=== PATIENT | female | born 1940 | race Caucasian/White ===

== ENCOUNTER → 2016-12-07 | Outpatient (CLI) | payer MEDICARE, OTHER ==
--- NOTE | 2016-12-07 15:13 | US ---
EXAMINATION TYPE: US kidneys/renal and bladder DATE OF EXAM: 12/07/2016 3:02 PM COMPARISON: US in PACS CLINICAL HISTORY: R31.9 Hematuria N39.0 Recurrent UTI. Gross hematuria EXAM MEASUREMENTS: Right Kidney: 12.4 x 4.1 x 4.0 cm Left Kidney: 11.9 x 5.4 x 4.9 cm FINDINGS: There is no evidence for hydronephrosis at this point in time. No nephrolithiasis is seen. No caridad s are identified. The urinary bladder is anechoic. Bilateral ureteral jets are seen. IMPRESSION: No acute process.
== END | disposition home or self-care (01) ==
LOC: RADUSWWP 14:44
PROVIDERS: ATTEND Internal Medicine
DX: R10.2 Pelvic and perineal pain (principal); R31.9 Hematuria, unspecified; N39.0 Urinary tract infection, site not specified
CPT/HCPCS: 76770

== ENCOUNTER 2016-12-08 12:13 | Emergency (ER) | payer MEDICARE ==
[2016-12-08] MEDS ORDERED: SODIUM CHLORIDE 0.9% 1,000 ML IV ONE (12:41)
--- NOTE | 2016-12-08 13:34 | ED ---
General Adult HPI - General Chief complaint: Urogenital Stated complaint: Female /bleeding Time Seen by Provider: 12/08/16 12:29 Source: patient, RN notes reviewed, old records reviewed Mode of arrival: ambulatory Limitations: no limitations - History of Present Illness Initial comments: This is a 76-year-old female to the ER today for evaluation of blood in her urine. Patient believes blood is coming from the urine and has seen her primary care for evaluation of this an outpatient basis. Patient has no specific medical history not on blood thinners, has had ultrasound her kidneys and bladder and urine testing as well. Patient denies weakness dizziness or lightheadedness. Denies symptoms being in her stool and does not think it is coming from her vagina. - Related Data Home Medications Medication Instructions Recorded Confirmed Atenolol [Atenolol] 50 mg PO HS 10/08/14 12/08/16 Atorvastatin [Lipitor] 10 mg PO HS 10/08/14 12/08/16 Lansoprazole [Prevacid] 15 mg PO HS 10/08/14 12/08/16 Olmesartan/Hydrochlorothiazide 1 tab PO HS 10/08/14 12/08/16 [Benicar Hct 20-12.5 mg Tablet] Naproxen Sodium [Aleve] 220 mg PO DAILY PRN 12/08/16 12/08/16 Allergies Allergy/AdvReac Type Severity Reaction Status Date / Time No Known Allergies Allergy Verified 12/08/16 13:00 Review of Systems ROS Statement: Those systems with pertinent positive or pertinent negative responses have been documented in the HPI. ROS Other: All systems not noted in ROS Statement are negative. Past Medical History Past Medical History: GERD/Reflux, Hyperlipidemia, Hypertension Additional Past Medical History / Comment(s): CATARACTS SHER. History of Any Multi-Drug Resistant Organisms: None Reported Past Surgical History: Breast Surgery, Cholecystectomy, Orthopedic Surgery Additional Past Surgical History / Comment(s): SHER KNEE ARTHROSCOPY. D&C, HYSTEROSCOPY. RT BREAST BX, W/ CLIP. Past Anesthesia/Blood Transfusion Reactions: No Reported Reaction Past Psychological History: No Psychological Hx Reported Smoking Status: Never smoker Past Alcohol Use History: Rare Past Drug Use History: None Reported - Past Family History Mother Family Medical History: Cancer General Exam Limitations: no limitations General appearance: alert, in no apparent distress Head exam: Present: atraumatic, normocephalic, normal inspection Eye exam: Present: normal appearance, PERRL, EOMI. Absent: scleral icterus, conjunctival injection, periorbital swelling ENT exam: Present: normal exam, mucous membranes moist Neck exam: Present: normal inspection. Absent: tenderness, meningismus, lymphadenopathy Respiratory exam: Present: normal lung sounds bilaterally. Absent: respiratory distress, wheezes, rales, rhonchi, stridor Cardiovascular Exam: Present: regular rate, normal rhythm, normal heart sounds. Absent: systolic murmur, diastolic murmur, rubs, gallop, clicks GI/Abdominal exam: Present: soft, normal bowel sounds. Absent: distended, tenderness, guarding, rebound, rigid Extremities exam: Present: normal inspection, full ROM, normal capillary refill. Absent: tenderness, pedal edema, joint swelling, calf tenderness Back exam: Present: normal inspection Neurological exam: Present: alert, oriented X3, CN II-XII intact Psychiatric exam: Present: normal affect, normal mood Skin exam: Present: warm, dry, intact, normal color. Absent: rash Course Vital Signs 12/08/16 12:24 Temperature 98.9 F Pulse Rate 69 Respiratory 16 Rate Blood Pressure 148/67 O2 Sat by Pulse 93 L Oximetry - Reevaluation(s) Reevaluation #1: 12/08/16 13:33 Ultrasound of bladder and kidneys are reviewed, normal Reevaluation #2: 12/08/16 14:14 Patient is without significant bleeding here emergency room Medical Decision Making - Medical Decision Making 76 female year for evaluation of hematuria. Patient with persistent hematuria 2 -3 days now, we'll continue follow-up with her family doctor and given urology consult regarding hematuria, ultrasound shows thickened endometrium and will prescribe Dyne referral, patient to continue increasing fluid intake, he will but is stable and normal vital signs are normal not lightheaded dizziness or week, patient can be discharged - Lab Data Result diagrams: 12/08/16 13:05 12/08/16 13:05 Lab Results 12/08/16 12/08/16 12/08/16 Range/Units 13:05 13:05 13:05 WBC 7.8 (3.8-10.6) k/uL RBC 4.40 (3.80-5.40) m/uL Hgb 14.4 (11.4-16.0) gm/dL Hct 42.9 (34.0-46.0) % MCV 97.7 (80.0-100.0) fL MCH 32.8 (25.0-35.0) pg MCHC 33.6 (31.0-37.0) g/dL RDW 14.0 (11.5-15.5) % Plt Count 189 (150-450) k/uL Neutrophils % 69 % Lymphocytes % 20 % Monocytes % 6 % Eosinophils % 2 % Basophils % 1 % Neutrophils # 5.3 (1.3-7.7) k/uL Lymphocytes # 1.6 (1.0-4.8) k/uL Monocytes # 0.5 (0-1.0) k/uL Eosinophils # 0.2 (0-0.7) k/uL Basophils # 0.1 (0-0.2) k/uL PT 10.1 (9.0-12.0) sec INR 1.0 (<1.1) APTT 22.6 (22.0-30.0) sec Sodium 143 (137-145) mmol/L Potassium 4.5 (3.5-5.1) mmol/L Chloride 102 (98-107) mmol/L Carbon Dioxide 26 (22-30) mmol/L Anion Gap 15 mmol/L BUN 23 H (7-17) mg/dL Creatinine 0.92 (0.52-1.04) mg/dL Est GFR (MDRD) Af Amer >60 (>60 ml/min/1.73 sqM) Est GFR (MDRD) Non-Af 60 (>60 ml/min/1.73 sqM) Glucose 131 H (74-99) mg/dL Calcium 10.0 (8.4-10.2) mg/dL Total Bilirubin 1.0 (0.2-1.3) mg/dL AST 35 (14-36) U/L ALT 29 (9-52) U/L Alkaline Phosphatase 86 (38-126) U/L Total Protein 7.7 (6.3-8.2) g/dL Albumin 4.7 (3.5-5.0) g/dL Urine Color Urine Appearance (Clear) Urine pH (5.0-8.0) Ur Specific [place] (1.001-1.035) Urine Protein (Negative) Urine Glucose (UA) (Negative) Urine Ketones (Negative) Urine Blood (Negative) Urine Nitrate (Negative) Urine Bilirubin (Negative) Urine Urobilinogen (<2.0) mg/dL Ur Leukocyte Esterase (Negative) Urine RBC (0-5) /hpf Urine WBC (0-5) /hpf 12/08/16 Range/Units 13:07 WBC (3.8-10.6) k/uL RBC (3.80-5.40) m/uL Hgb (11.4-16.0) gm/dL Hct (34.0-46.0) % MCV (80.0-100.0) fL MCH (25.0-35.0) pg MCHC (31.0-37.0) g/dL RDW (11.5-15.5) % Plt Count (150-450) k/uL Neutrophils % % Lymphocytes % % Monocytes % % Eosinophils % % Basophils % % Neutrophils # (1.3-7.7) k/uL Lymphocytes # (1.0-4.8) k/uL Monocytes # (0-1.0) k/uL Eosinophils # (0-0.7) k/uL Basophils # (0-0.2) k/uL PT (9.0-12.0) sec INR (<1.1) APTT (22.0-30.0) sec Sodium (137-145) mmol/L Potassium (3.5-5.1) mmol/L Chloride (98-107) mmol/L Carbon Dioxide (22-30) mmol/L Anion Gap mmol/L BUN (7-17) mg/dL Creatinine (0.52-1.04) mg/dL Est GFR (MDRD) Af Amer (>60 ml/min/1.73 sqM) Est GFR (MDRD) Non-Af (>60 ml/min/1.73 sqM) Glucose (74-99) mg/dL Calcium (8.4-10.2) mg/dL Total Bilirubin (0.2-1.3) mg/dL AST (14-36) U/L ALT (9-52) U/L Alkaline Phosphatase (38-126) U/L Total Protein (6.3-8.2) g/dL Albumin (3.5-5.0) g/dL Urine Color Red Urine Appearance Cloudy H (Clear) Urine pH 5.0 (5.0-8.0) Ur Specific [place] 1.015 (1.001-1.035) Urine Protein 1+ H (Negative) Urine Glucose (UA) Negative (Negative) Urine Ketones Negative (Negative) Urine Blood Large H (Negative) Urine Nitrate Negative (Negative) Urine Bilirubin Negative (Negative) Urine Urobilinogen <2.0 (<2.0) mg/dL Ur Leukocyte Esterase Moderate H (Negative) Urine RBC >182 H (0-5) /hpf Urine WBC 57 H (0-5) /hpf - Radiology Data Radiology results: report reviewed (US bladder positive for thickened endometrium), image reviewed Disposition Clinical Impression: Hematuria Disposition: HOME SELF-CARE Instructions: Hematuria (ED) Referrals: Cristino Craig MD [Primary Care Provider] - 1-2 days Valdemar Schultz MD [STAFF PHYSICIAN] - 1-2 days Zenaida Meehan DO [Doctor of Osteopathic Medicine] - 1-2 days
[2016-12-08 13:48] LABS: Basophils # (A) 0.1 k/uL (0-0.2); Basophils % (A) 1 %; CH 32.7; CHCM 33.6; Eosinophils # (A) 0.2 k/uL (0-0.7); Eosinophils % (A) 2 %; HCT 42.9 % (34.0-46.0); HDW 2.75; HGB 14.4 gm/dL (11.4-16.0); Luc # (Auto) 0.16; Luc % (Auto) 2; Lymphocytes # (A) 1.6 k/uL (1.0-4.8); Lymphocytes % (A) 20 %; MCH 32.8 pg (25.0-35.0); MCHC 33.6 g/dL (31.0-37.0); MCV 97.7 fL (80.0-100.0); Mean Platelet Volume 8.8; Monocytes # (A) 0.5 k/uL (0-1.0); Monocytes % (A) 6 %; Neutrophils # (A) 5.3 k/uL (1.3-7.7); Neutrophils % (A) 69 %; WBC 7.8 k/uL (3.8-10.6); WBC (Perox) 7.54
[2016-12-08 13:57] LABS: ALT 29 U/L (9-52); AST 35 U/L (14-36); Alkaline Phosphatase 86 U/L (38-126); Anion Gap 15 mmol/L; Blood Urea Nitrogen 23 mg/dL (7-17); Carbon Dioxide 26 mmol/L (22-30); Chloride 102 mmol/L (98-107); Glucose 131 mg/dL (74-99); Non-African American GFR(MDRD) 60 (>60 ml/min/1.73 sqM); Potassium 4.5 mmol/L (3.5-5.1); Sodium 143 mmol/L (137-145); Total Protein 7.7 g/dL (6.3-8.2)
--- NOTE | 2016-12-08 13:59 | US ---
EXAMINATION TYPE: US transvaginal DATE OF EXAM: 12/08/2016 1:41 PM COMPARISON: NONE CLINICAL HISTORY: Pain. TECHNIQUE: Transvagingal Date of LMP: Post menopausal EXAM MEASUREMENTS: Uterus: 9.4 x 5.5 x 5.5 cm cm Endometrial Stripe: 2.4 cm Right Ovary: Not identified cm Left Ovary: Not identified cm TECHNOLOGIST IMPRESSION: wnl 1. Uterus: Bulky, heterogeneous texture. 2. Endometrium: Thickened 3. Right Ovary: Not seen 4. Left Ovary: Not seen 5. Bilateral Adnexa: wnl 6. Posterior cul-de-sac: wnl IMPRESSION: Abnormally thickened endometrium recommend SIZE ROLLER OPERATOR consult
[2016-12-08 14:00] LABS: Partial Thromboplastin Time 22.6 sec (22.0-30.0); Prothrombin Time 10.1 sec (9.0-12.0)
[2016-12-08 14:04] LABS: Appearance,Urine Cloudy (Clear); Bilirubin,Urine Negative (Negative); Glucose,Urine (UA) Negative (Negative); Ketones,Urine Negative (Negative); Leukocyte Esterase,Urine Moderate (Negative); Nitrite,Urine Negative (Negative); Particle Count 12045; Protein,Urine 1+ (Negative); RBC,Urine >182 /hpf (0-5); Specific Gravity,Urine 1.015 (1.001-1.035); UA Billing (MACRO vs. MICRO) MICRO; Urobilinogen,Urine <2.0 mg/dL (<2.0); WBC,Urine 57 /hpf (0-5)
[2016-12-08 14:33] VITALS: BP 166/75; PULSE 94; RESP 18; TEMP 98.2
== END 2016-12-08 14:33 | disposition home or self-care (01) ==
LOC: EC 12:13
DX: R31.9 Hematuria, unspecified (principal); R93.8 Abnormal findings on diagnostic imaging of other specified body structures; I10 Essential (primary) hypertension; E78.5 Hyperlipidemia, unspecified; K21.9 Gastro-esophageal reflux disease without esophagitis; H26.9 Unspecified cataract; Z79.899 Other long term (current) drug therapy
CPT/HCPCS: 36415; 76830; 80053; 81001; 85025; 85610; 85730; 86850; 86900; 86901; 87086; 96360; 99283

== ENCOUNTER → 2016-12-30 | Outpatient (CLI) | payer MEDICARE ==
[2016-12-30 16:26] LABS: Basophils # (A) 0.1 k/uL (0-0.2); Basophils % (A) 1 %; CH 31.9; CHCM 32.4; Eosinophils # (A) 0.2 k/uL (0-0.7); Eosinophils % (A) 3 %; HCT 42.7 % (34.0-46.0); HDW 2.77; HGB 13.7 gm/dL (11.4-16.0); Luc % (Auto) 3; Lymphocytes % (A) 26 %; MCH 31.7 pg (25.0-35.0); Mean Platelet Volume 7.7; Monocytes # (A) 0.4 k/uL (0-1.0); Monocytes % (A) 5 %; Neutrophils # (A) 4.7 k/uL (1.3-7.7); Neutrophils % (A) 63 %; RBC 4.31 m/uL (3.80-5.40); RDW 13.7 % (11.5-15.5); WBC 7.5 k/uL (3.8-10.6); WBC (Perox) 8.09
== END | disposition home or self-care (01) ==
LOC: LABPAT 15:58
PROVIDERS: ATTEND Obstetrics & Gynecology
DX: Z01.810 Encounter for preprocedural cardiovascular examination (principal); Z01.812 Encounter for preprocedural laboratory examination
CPT/HCPCS: 85025; 93005

== ENCOUNTER 2017-01-08 06:57 | Day surgery (SDC) | payer MEDICARE ==
[2016-12-31 13:01] VITALS: BMI 42.9
[~2017-01-08 06:57] MED LIST: HYDROmorphone 1 MG/ML 1 ML SYRINGE IVP PRN; MIDAZOLAM 2 MG/2 ML VIAL IV PRN; ONDANSETRON 4 MG/2 ML VIAL IVP ONE; Pre Op ABX Message 1 EACH MISC MISCELLANE ONE
--- NOTE | 2017-01-08 06:57 | P.HPOB ---
History of Present Illness H&P Date: 01/08/17 Chief Complaint: Postmenopausal bleeding 76 year old presents for D&C hysteroscopy for postmenopausal bleeding and thickened endometrium. Review of Systems All systems: negative Constitutional: Denies chills, Denies fever Eyes: denies blurred vision, denies pain Ears, nose, mouth and throat: Denies headache, Denies sore throat Cardiovascular: Denies chest pain, Denies shortness of breath Respiratory: Denies cough Gastrointestinal: Denies abdominal pain, Denies diarrhea, Denies nausea, Denies vomiting Genitourinary: Denies dysuria, Denies hematuria Musculoskeletal: Denies myalgias Integumentary: Denies pruritus, Denies rash Neurological: Denies numbness, Denies weakness Psychiatric: Denies anxiety, Denies depression Endocrine: Denies fatigue, Denies weight change Past Medical History Past Medical History: GERD/Reflux, Hyperlipidemia, Hypertension Additional Past Medical History / Comment(s): post menopausal bleeding, thickening of endometrium,leakage of urine and stool,diverticulosis Hx palpitations,murmur,varicose veins History of Any Multi-Drug Resistant Organisms: None Reported Past Surgical History: Breast Surgery, Cholecystectomy, Orthopedic Surgery Additional Past Surgical History / Comment(s): SHER KNEE ARTHROSCOPY. D&C, HYSTEROSCOPY. RT BREAST BX W/ CLIP,sher cataracts Past Anesthesia/Blood Transfusion Reactions: No Reported Reaction Past Psychological History: No Psychological Hx Reported Smoking Status: Never smoker Past Alcohol Use History: Rare Past Drug Use History: None Reported - Past Family History Father Additional Family Medical History / Comment(s): Heart problem Brother(s) Family Medical History: Cancer Additional Family Medical History / Comment(s): colon,palpitation,pacemaker Mother Family Medical History: Cancer Additional Family Medical History / Comment(s): pancreatic CA Medications and Allergies Home Medications Medication Instructions Recorded Confirmed Type Atenolol [Atenolol] 50 mg PO HS 10/08/14 12/31/16 History Atorvastatin [Lipitor] 10 mg PO HS 10/08/14 12/31/16 History Lansoprazole [Prevacid] 15 mg PO HS 10/08/14 12/31/16 History Olmesartan/Hydrochlorothiazide 1 tab PO HS 10/08/14 12/31/16 History [Benicar Hct 20-12.5 mg Tablet] Naproxen Sodium [Aleve] 220 mg PO DAILY PRN 12/08/16 12/31/16 History Furosemide [Lasix] 20 mg PO DAILY 12/31/16 12/31/16 History Potassium Chloride [Klor-Con 10] 10 meq PO DAILY 12/31/16 12/31/16 History Allergies Allergy/AdvReac Type Severity Reaction Status Date / Time No Known Allergies Allergy Verified 12/31/16 12:48 Exam Osteopathic Statement: *. No significant issues noted on an osteopathic structural exam other than those noted in the History and Physical/Consult. Heart: Regular rate and rhythm Lungs: Clear to auscultation bilaterally Abdomen: Soft, nontender Extremities: Negative Homans sign Assessment and Plan (1) Postmenopausal bleeding Status: Acute Plan: 1. D&C, hysteroscopy
[2017-01-08] MEDS ORDERED: LIDOCAINE 1% 20 ML VIAL (10MG/ML) FOR IV START INTRADERMA ONE (07:39)
[2017-01-08] MEDS: LACTATED RINGERS 1,000 ML IV SCH ×2 (07:39→08:05)
[2017-01-08] MEDS ORDERED: MIDAZOLAM 2 MG/2 ML VIAL ONE (08:06)
[2017-01-08] MEDS ORDERED: LIDOCAINE 1% INJ 10MG/ML (20 ML MDV) ONE (08:06)
[2017-01-08] MEDS ORDERED: SUCCINYLCHOLINE CHLORIDE 100 MG/5 ML SYR IV ONE (08:06)
[2017-01-08] MEDS ORDERED: KETOROLAC 30 MG/ML 1 ML VIAL ONE (08:06)
[2017-01-08] MEDS ORDERED: PROPOFOL 10 MG/ML 20 ML VIAL IV ONE (08:06)
[2017-01-08] MEDS ORDERED: fentaNYL (PF) 50 MCG/ML 2 ML AMP ONE (08:06)
--- NOTE | 2017-01-08 08:50 | P.OP ---
Date of Procedure: 01/08/17 Preoperative Diagnosis: 1. Postmenopausal bleeding Postoperative Diagnosis: 1. Postmenopausal bleeding Procedure(s) Performed: D&C, Hysteroscopy Anesthesia: CANDELARIO Surgeon: Eloise Garcia Estimated Blood Loss (ml): 10 IV fluids (ml): 200 Urine output (ml): 15 Pathology: other (Endometrial curettings) Condition: stable Disposition: PACU Operative Findings: The cervix was found to be deep in the pelvis and difficult to grasp, slight cervical stenosis. Moderate amount of endometrial tissue seen on hysteroscopy and through curettage. Description of Procedure: Patient seen operating room where general anesthesia was obtained without difficulty. She is prepped and draped in normal sterile fashion dorsal lithotomy position, legs placed in the yellowfin stirrups. Bladder was drained of all urine. Weighted speculum placed in the vagina and anterior retractor was also placed. After several minutes the cervix was found in the anterior lip was grasped with a single-tooth tenaculum. Cervix was dilated to #6 Hegar dilator. Uterus was sounded to 8 cm. Sharp curette was gently used to obtain endometrial curettings. Patient tolerated the procedure well, sponge and instrument counts are correct 2. She was taken to recovery room in stable condition.
[2017-01-08 08:54] VITALS: TEMP 96.8
[2017-01-08 09:32] VITALS: RESP 16
[2017-01-08 10:19] VITALS: PULSE 61
[2017-01-08 10:39] VITALS: BP 121/66
== END 2017-01-08 11:26 | disposition home or self-care (01) ==
LOC: OR 06:57
PROVIDERS: ATTEND Obstetrics & Gynecology
DX: N95.0 Postmenopausal bleeding (principal); C54.1 Malignant neoplasm of endometrium; K21.9 Gastro-esophageal reflux disease without esophagitis; E78.5 Hyperlipidemia, unspecified; I10 Essential (primary) hypertension; Z79.899 Other long term (current) drug therapy
CPT/HCPCS: 88305; 58558; J2250; J2405; J2001; J3010; J1885; J0330; J2704; 88341; 88342

== ENCOUNTER → 2017-02-15 | Outpatient (CLI) | payer MEDICARE ==
[2017-02-15 12:21] LABS: INR 1.1 (<1.1); Prothrombin Time 10.6 sec (9.0-12.0)
[2017-02-15 12:28] LABS: Appearance,Urine Cloudy (Clear); Bacteria,Urine Occasional /hpf; Bilirubin,Urine Negative (Negative); Glucose,Urine (UA) Negative (Negative); Ketones,Urine Negative (Negative); Leukocyte Esterase,Urine Large (Negative); Mucus,Urine Rare /hpf; Nitrite,Urine Negative (Negative); Particle Count 4657; Protein,Urine Trace (Negative); RBC,Urine 24 /hpf (0-5); Specific Gravity,Urine 1.017 (1.001-1.035); Squamous Epithelial Cell,Urine 2 /hpf (0-4); UA Billing (MACRO vs. MICRO) MICRO; Urobilinogen,Urine <2.0 mg/dL (<2.0); WBC,Urine 40 /hpf (0-5)
[2017-02-15 12:34] LABS: Anion Gap 12 mmol/L; Blood Urea Nitrogen 24 mg/dL (7-17); Calcium 10.1 mg/dL (8.4-10.2); Carbon Dioxide 27 mmol/L (22-30); Chloride 102 mmol/L (98-107); Glucose 140 mg/dL (74-99); Non-African American GFR(MDRD) 55 (>60 ml/min/1.73 sqM); Potassium 4.7 mmol/L (3.5-5.1); Sodium 141 mmol/L (137-145)
[2017-02-15 12:39] LABS: Basophils # (A) 0.1 k/uL (0-0.2); Basophils % (A) 1 %; CH 32.7; CHCM 33.5; Eosinophils # (A) 0.2 k/uL (0-0.7); Eosinophils % (A) 2 %; HCT 42.9 % (34.0-46.0); HDW 2.92; Luc # (Auto) 0.26; Luc % (Auto) 3; Lymphocytes % (A) 25 %; MCHC 32.6 g/dL (31.0-37.0); Mean Platelet Volume 7.7; Monocytes # (A) 0.6 k/uL (0-1.0); Monocytes % (A) 7 %; Neutrophils # (A) 5.2 k/uL (1.3-7.7); Neutrophils % (A) 63 %; RBC 4.37 m/uL (3.80-5.40); RDW 14.1 % (11.5-15.5); WBC 8.3 k/uL (3.8-10.6); WBC (Perox) 7.94
== END | disposition home or self-care (01) ==
LOC: LABPAT 11:36
PROVIDERS: ATTEND Internal Medicine
DX: Z01.812 Encounter for preprocedural laboratory examination (principal)
CPT/HCPCS: 80048; 81001; 85025; 85610

== ENCOUNTER → 2017-05-03 | Outpatient (CLI) | payer MEDICARE ==
[2017-05-03 11:55] LABS: Anisocytosis Slight; CHCM 32.9; HCT 37.2 % (34.0-46.0); HDW 2.93; HGB 12.3 gm/dL (11.4-16.0); MCH 32.2 pg (25.0-35.0); MCHC 32.9 g/dL (31.0-37.0); MCV 97.9 fL (80.0-100.0); Macrocytosis Slight; Mean Platelet Volume 8.5; RDW 16.3 % (11.5-15.5); WBC 5.3 k/uL (3.8-10.6)
[2017-05-03 11:58] LABS: ALT 26 U/L (9-52); AST 27 U/L (14-36); Alkaline Phosphatase 73 U/L (38-126); Anion Gap 15 mmol/L; Blood Urea Nitrogen 21 mg/dL (7-17); Calcium 9.8 mg/dL (8.4-10.2); Carbon Dioxide 22 mmol/L (22-30); Chloride 101 mmol/L (98-107); Glucose 139 mg/dL (74-99); Non-African American GFR(MDRD) >60 (>60 ml/min/1.73 sqM); Potassium 4.4 mmol/L (3.5-5.1); Sodium 138 mmol/L (137-145); Total Bilirubin 0.9 mg/dL (0.2-1.3); Total Protein 6.9 g/dL (6.3-8.2)
== END | disposition home or self-care (01) ==
LOC: LABWHC1 10:57
PROVIDERS: ATTEND Internal Medicine
DX: C54.9 Malignant neoplasm of corpus uteri, unspecified (principal); I11.9 Hypertensive heart disease without heart failure; E11.9 Type 2 diabetes mellitus without complications
CPT/HCPCS: 36415; 80053; 85027

== ENCOUNTER → 2017-08-03 | Outpatient (CLI) | payer MEDICARE ==
--- NOTE | 2017-08-04 08:00 | MM ---
Reason for exam: screening (asymptomatic). Last mammogram was performed 1 year and 1 month ago. History: Patient is postmenopausal, has history of endometrial cancer at age 77, and is nulliparous. Family history of breast cancer in paternal aunt. Benign right mammotome panel of the right breast, April 03, 2009. Physical Findings: A clinical breast exam by your physician is recommended on an annual basis and results should be correlated with mammographic findings. MG 3D Screening Mammo W/Cad Bilateral CC and MLO view(s) were taken. Prior study comparison: June 30, 2016, bilateral MG 3d screening mammo w/cad. June 03, 2015, bilateral MG screening mammo w CAD. Increasing cluster of microcalcifications upper outer right breast 9.4cm from nipple. ASSESSMENT: Incomplete: need additional imaging evaluation, BI-RAD 0 RECOMMENDATION: Special view mammogram of the right breast. [facility] will attempt to contact patient to return for supplemental views.
== END | disposition home or self-care (01) ==
LOC: RADMAMWWP 10:14
PROVIDERS: ATTEND Internal Medicine
DX: Z12.31 Encounter for screening mammogram for malignant neoplasm of breast (principal)
CPT/HCPCS: 77063; G0202

== ENCOUNTER → 2017-08-30 | Outpatient (CLI) | payer MEDICARE ==
[2017-08-30 13:53] LABS: CH 31.1; CHCM 31.8; HCT 39.4 % (34.0-46.0); HDW 2.91; HGB 12.7 gm/dL (11.4-16.0); Hypochromasia Slight; MCH 31.8 pg (25.0-35.0); MCHC 32.4 g/dL (31.0-37.0); MCV 98.2 fL (80.0-100.0); Mean Platelet Volume 8.2; RBC 4.01 m/uL (3.80-5.40); RDW 14.7 % (11.5-15.5); WBC 5.4 k/uL (3.8-10.6)
[2017-08-30 14:03] LABS: Blood Urea Nitrogen 18 mg/dL (7-17); Non-African American GFR(MDRD) >60 (>60 ml/min/1.73 sqM)
--- NOTE | 2017-08-30 15:01 | CT ---
EXAMINATION TYPE: CT abdomen pelvis w con DATE OF EXAM: 08/30/2017 COMPARISON: NONE HISTORY: Follow up endometrial cancer CT DLP: 2779.3 mGycm CONTRAST: CT scan of the abdomen and pelvis is performed with Oral Contrast and with IV Contrast, patient injec dylan with 100 mL of Omnipaque 300. FINDINGS: LUNG BASES-: No visible nodule. No infiltrate. LIVER/GB: Hepatic steatosis noted. Cholecystectomy clips are in place. No space occupying hepatic les ion. Biliary tree is of normal caliber. PANCREAS: No inflammation. No distinct mass. SPLEEN: No splenic enlargement. No lesion seen. ADRENALS: No nodule. No thickening. KIDNEYS/BLADDER: No hydronephrosis. No nephrolithiasis. No disctinct renal mass. Urinary bladder g rossly unremarkable. BOWEL: Distal small bowel loops demonstrate wall thickening of uncertain etiology. Remaining small todd wel and large bowel are of normal caliber. Postoperative change lower left anterior abdominal wall. GENITAL ORGANS: Hysterectomy changes noted. No evidence for vaginal cuff mass. Fullness left ovary m easuring 2.6 cm may reflect underlying cystic lesion. No right adnexal masses identified. LYMPH NODES: No greater than 1cm abdominal or pelvic lymph nodes are appreciated. AORTA: No significant abnormality. OSSEOUS STRUCTURES: No significant abnormality is seen. OTHER: No significant additional abnormality is seen. IMPRESSION: 1. No evidence for metastatic disease or local recurrence. 2. Cystic lesion left ovary. Consider ultrasound correlation. 3. Wall thickening distal ileal loops may be post surgical in nature. Correlate clinically.
== END | disposition home or self-care (01) ==
LOC: RADCTMAIN 13:21
PROVIDERS: ATTEND Obstetrics & Gynecology Gynecologic Oncology
DX: D63.0 Anemia in neoplastic disease (principal); R53.82 Chronic fatigue, unspecified; N83.8 Other noninflammatory disorders of ovary, fallopian tube and broad ligament; K63.89 Other specified diseases of intestine
CPT/HCPCS: 82565; 84520; 85027; 74177; 36415; Q9967

== ENCOUNTER → 2017-11-23 | Outpatient (CLI) | payer MEDICARE ==
[2017-11-23 12:15] LABS: Blood Urea Nitrogen 22 mg/dL (7-17)
--- NOTE | 2017-11-23 14:40 | CT ---
EXAMINATION TYPE: CT abdomen pelvis w con DATE OF EXAM: 11/23/2017 COMPARISON: 08/30/2017 HISTORY: Follow up to endometrial CA CT DLP: 2295.8 mGycm CONTRAST: CT scan of the abdomen and pelvis is performed with Oral Contrast and with IV Contrast, patient injec dylan with 100 mL of Omnipaque 300. FINDINGS: LUNG BASES-: No visible nodule. No infiltrate. LIVER/GB: Cholecystectomy clips noted. No space occupying hepatic lesion. Biliary tree is of beth l caliber. Mild hepatic steatosis. PANCREAS: No inflammation. No distinct mass. SPLEEN: No splenic enlargement. No lesion seen. ADRENALS: No nodule. No thickening. KIDNEYS/BLADDER: No hydronephrosis. No nephrolithiasis. No distinct renal mass. Urinary bladder g rossly unremarkable. BOWEL:Distal small bowel loops demonstrate wall thickening of uncertain etiology. Remaining small bow el and large bowel are of normal caliber. Postoperative change lower left anterior abdominal wall. GENITAL ORGANS: No gross abnormality. LYMPH NODES: No greater than 1cm abdominal or pelvic lymph nodes are appreciated. AORTA: No significant abnormality. OSSEOUS STRUCTURES: No significant abnormality is seen. OTHER: Stable 1.8 cm area of decreased attenuation anterior to the right psoas musculature versus 2 c m previously. Stable cystic area in the region of the left adnexa which may reflect adnexal cyst, laura nopathy or lymphocele. Size currently is 2.2 cm versus 2.6 cm previously. Chronic anterior abdominal wall thickening. IMPRESSION: 1. Stable evaluation of the abdomen and pelvis. 2. Stable areas of decreased attenuation anterior to the right psoas musculature and in the region o f the left adnexa as discussed above.
== END | disposition home or self-care (01) ==
LOC: RADCTMAIN 11:40
PROVIDERS: ATTEND Internal Medicine
DX: C54.9 Malignant neoplasm of corpus uteri, unspecified (principal)
CPT/HCPCS: 82565; 84520; 74177; 36415; Q9967

== ENCOUNTER → 2018-01-18 | Outpatient (CLI) | payer MEDICARE ==
--- NOTE | 2018-01-18 13:22 | XR ---
EXAMINATION TYPE: XR shoulder complete RT DATE OF EXAM: 01/18/2018 COMPARISON: NONE HISTORY: 77-year-old female with pain and arthritis, fall in September TECHNIQUE: 3 views FINDINGS: Moderate degenerative joint space narrowing with marginal spurring at the acromioclavicular joint. Bailey bacromial space is preserved. There is bony irregularity and sclerosis of the greater tuberosity. No acute fracture, subluxation, or dislocation. Visualized right hemithorax shows some strandy density r ight midlung probably atelectasis. IMPRESSION: 1. Bony changes at the greater tuberosity can be seen in the setting of chronic rotator cuff tendinop athy. If concern for rotator cuff tear, MRI can be performed. 2. Moderate AC joint OA.
== END | disposition home or self-care (01) ==
LOC: RADXRMAIN 12:53
PROVIDERS: ATTEND Internal Medicine
DX: M19.011 Primary osteoarthritis, right shoulder (principal)

== ENCOUNTER → 2018-03-23 | Outpatient (CLI) | payer MEDICARE ==
--- NOTE | 2018-03-23 11:36 | MM ---
Reason for exam: follow-up at short interval from prior study. Last mammogram was performed 8 months ago. History: Patient is postmenopausal, has history of endometrial cancer at age 77, and is nulliparous. Family history of breast cancer in paternal aunt. Benign MG stereo VAD BX RT of the right breast, August 16, 2017. Benign right mammotome panel of the right breast, April 03, 2009. Physical Findings: Nurse did not find any significant physical abnormalities on exam. MG 3D Diag Mammo W/Cad RT CC, MLO, and ML view(s) were taken of the right breast. Prior study comparison: August 05, 2017, right breast MG 3d work up w/cad RT. August 03, 2017, bilateral MG 3d screening mammo w/cad. The breast tissue is heterogeneously dense. This may lower the sensitivity of mammography. There is an increased group of 4mm calcifications in the lower inner quadrant of the right breast, suspicious finding as these are heterogeneous. No increased calcifications at site of prior benign biopsy. Other right calcifiations are similar to priors. These results were verbally communicated with the patient and result sheet given to the patient on 03/23/18. ASSESSMENT: Suspicious, BI-RAD 4 RECOMMENDATION: Stereotactic core biopsy of the right breast. Called with mammographic findings and has scheduled an appointment for the patient for 03/31/18 at 2:[address] Rob. PRELIMINARY REPORT CALLED AND FAXED TO DR. ROB ON 03/23/18.
== END | disposition home or self-care (01) ==
LOC: RADMAMWWP 09:47
PROVIDERS: ATTEND Surgery
DX: R92.8 Other abnormal and inconclusive findings on diagnostic imaging of breast (principal)
CPT/HCPCS: 77065; G0279; 77061

== ENCOUNTER → 2018-04-06 | Day surgery (SDC) | payer MEDICARE ==
[2018-04-06 13:26] VITALS: PULSE 67; RESP 16; BMI 43.9
[2018-04-06 14:56] VITALS: BP 147/74; TEMP 98.2
--- NOTE | 2018-04-06 15:29 | MM ---
EXAMINATION TYPE: MG stereo VAD BX RT DATE OF EXAM: 04/06/2018 COMPARISON: Mammogram March 23, 2018 and older studies. CLINICAL HISTORY: Abnormal mammogram TECHNIQUE: Stereotactic guided core biopsy of right breast with clip placement and follow-up two-view mammogram. FINDINGS: The procedure of stereotactic guided core biopsy was explained to the patient. Benefits, alternatives, and risks were discussed. An informed consent was then obtained. The shortness pathway for biopsy was chosen. Shortness pathway was inferior approach. I performed the localization, then performed the remainder of the procedure. Overlying skin is cleansed with Betadine. Lidocaine with bicarbonate is used as anesthetic into the skin and deeper tissue. Lidocaine with epinephrine is used as anesthetic into the deeper tissue. A vacuum assisted biopsy gun was used to obtain multiple core samples. The patient tolerated the procedure well without any immediate complication. The patient was kept in the radiology department for short stay after the procedure and then discharged home in stable condition. Targeted calcifications are identified in specimen mammogram. Post biopsy mammogram shows the clip to appear in satisfactory position relative to the targeted area of concern on the preprocedure images the anterior inner lower quadrant group of increasing calcifications of concern by reading radiologist. IMPRESSION: SUCCESSFUL, UNCOMPLICATED STEREOTACTIC GUIDED CORE BIOPSY OF AREA OF CONCERN IN THE RIGHT BREAST, FULL PATHOLOGY RESULTS TO FOLLOW. Low to intermediate index of suspicion noted at time of procedure. Pathology Results: Benign BREAST, RIGHT, STEREOTACTIC CORE BIOPSY: Fibroadenomatoid hyperplasia with hyalinization and calcifications. Background fibrocystic changes including fibrosis and small cysts. Recommendation Follow up mammogram of the right breast in 6 months. TRA
== END ==
LOC: RADMAMWWP 13:05
PROVIDERS: ATTEND Surgery
DX: N60.31 Fibrosclerosis of right breast (principal); R92.1 Mammographic calcification found on diagnostic imaging of breast
CPT/HCPCS: 88305; 19081; A4648; J2001

== ENCOUNTER → 2018-05-30 | Outpatient (CLI) | payer MEDICARE ==
--- NOTE | 2018-05-30 19:06 | CT ---
EXAMINATION TYPE: CT abdomen pelvis w con DATE OF EXAM: 05/30/2018 COMPARISON: 11/23/2017 INDICATION: Follow up endometrial CA. DLP: 1899.3 mGycm, Automated exposure control for dose reduction was used. CONTRAST: 100 mL of Isovue 300. Study performed with Oral Contrast TECHNIQUE: Axial images were obtained from above the diaphragm to the pubic rami in the axial plane a t 5 mm thick sections. Reconstructed images are reviewed on the computer in the coronal plane. FINDINGS: Limited CT sections are obtained the lung bases. The lung bases are clear. Artery artery calcificat ions present. CT ABDOMEN: Liver: Normal Spleen: Normal Pancreas: Normal Adrenal glands: The adrenal glands are normal. Gallbladder: Surgically absent Kidneys: No masses are evident. No hydronephrosis is present. No cysts are present. Delayed images were obtained through the kidneys, which remain unremarkable. Aorta: Vascular calcification is within the aorta. Inferior vena cava: Normal. CT PELVIS: Loops of bowel within the abdomen and pelvis are normal. There are loops of bowel which are incom pletely distended or lack oral contrast limiting their evaluation. Appendix: Normal as visualized. Urinary bladder: Normal. Genitourinary structures: Uterus is absent. No pelvic adenopathy is evident. Hypodensities anterior t o the psoas muscles within the pelvis have diminished in size over the interval. Adnexal regions are clear. Osseous structures: No suspicious lytic or sclerotic lesions. Facet degenerative changes are present. IMPRESSIONS: 1. No suspicious changes suggest recurrent or metastatic endometrial cancer
== END | disposition home or self-care (01) ==
LOC: RADCTMAIN 10:31
PROVIDERS: ATTEND Obstetrics & Gynecology Gynecologic Oncology
DX: C54.1 Malignant neoplasm of endometrium (principal)
CPT/HCPCS: 82565; 84520; 74177; 36415; Q9967

== ENCOUNTER → 2018-07-08 | Outpatient (CLI) | payer MEDICARE | END | disposition home or self-care (01) | LOC: LABWHC1 13:52 | PROVIDERS: ATTEND Internal Medicine | DX: Z00.00 Encounter for general adult medical examination without abnormal findings (principal); E11.9 Type 2 diabetes mellitus without complications; K21.0 Gastro-esophageal reflux disease with esophagitis; I11.9 Hypertensive heart disease without heart failure; E78.2 Mixed hyperlipidemia | CPT/HCPCS: 36415; 82272 ==

== ENCOUNTER → 2018-07-11 | Outpatient (CLI) | payer MEDICARE ==
[2018-07-11 14:19] LABS: HCT 43.5 % (34.0-46.0); HGB 14.1 gm/dL (11.4-16.0); MCH 31.8 pg (25.0-35.0); MCHC 32.4 g/dL (31.0-37.0); Mean Platelet Volume 7.2; Platelet Count 189 k/uL (150-450); RBC 4.44 m/uL (3.80-5.40); WBC 5.2 k/uL (3.8-10.6)
[2018-07-11 14:29] LABS: Albumin 4.3 g/dL (3.5-5.0); Calcium 9.7 mg/dL (8.4-10.2); Potassium 4.9 mmol/L (3.5-5.1); Total Protein 7.2 g/dL (6.3-8.2)
[2018-07-11 14:43] LABS: T4, Free (Free Thyroxine) 0.83 ng/dL (0.78-2.19)
[2018-07-11 21:08] LABS: Hemoglobin A1C 6.4 % (4.0-6.0)
== END | disposition home or self-care (01) ==
LOC: LABWHC1 13:30
PROVIDERS: ATTEND Internal Medicine
DX: Z00.00 Encounter for general adult medical examination without abnormal findings (principal); I11.9 Hypertensive heart disease without heart failure; E11.9 Type 2 diabetes mellitus without complications; K21.0 Gastro-esophageal reflux disease with esophagitis; E78.2 Mixed hyperlipidemia
CPT/HCPCS: 36415; 80053; 80061; 82043; 82570; 83036; 84439; 84443; 85027

== ENCOUNTER → 2018-10-26 | Outpatient (CLI) | payer MEDICARE ==
--- NOTE | 2018-10-29 16:50 | MM ---
Reason for exam: follow-up at short interval from prior study. Last mammogram was performed 7 months ago. History: Patient is postmenopausal, has history of endometrial cancer at age 77, and is nulliparous. Family history of breast cancer in paternal aunt. Benign MG stereo VAD BX RT of the right breast, April 06, 2018. Benign MG stereo VAD BX RT of the right breast, August 16, 2017. Benign right mammotome panel of the right breast, April 03, 2009. Physical Findings: Nurse did not find any significant physical abnormalities on exam. MG 3D Diag Mammo W/Cad SHER Bilateral CC, MLO, and XCCL view(s) were taken. Prior study comparison: March 23, 2018, right breast MG 3d diag mammo w/cad RT. August 05, 2017, right breast MG 3d work up w/cad RT. The breast tissue is heterogeneously dense. This may lower the sensitivity of mammography. There are stable grouped heterogeneous right breast calcifications. Previous left breast mammotome biopsy. No significant new findings when compared with prior studies. These results were verbally communicated with the patient and result sheet given to the patient on 10/26/18. ASSESSMENT: Benign, BI-RAD 2 RECOMMENDATION: Routine screening mammogram of both breasts in 1 year.
== END | disposition home or self-care (01) ==
LOC: RADMAMWWP 09:17
PROVIDERS: ATTEND Internal Medicine
DX: R92.8 Other abnormal and inconclusive findings on diagnostic imaging of breast (principal)
CPT/HCPCS: 77066; G0279; 77062

== ENCOUNTER → 2019-02-06 | Outpatient (CLI) | payer MEDICARE ==
--- NOTE | 2019-02-06 11:26 | XR ---
EXAMINATION TYPE: XR chest 2V DATE OF EXAM: 02/06/2019 COMPARISON: 06/30/2016 HISTORY: 78-year-old female cough for one month TECHNIQUE: Frontal and lateral views FINDINGS: Heart normal size. Aorta and pulmonary vasculature within normal limits. Mild interstitial prominence is unchanged. Strandy scarring or atelectasis peripheral right midlung. No consolidation or pleural effusion. IMPRESSION: Chronic changes without acute cardiopulmonary process.
[2019-02-06 11:34] LABS: Calcium 10.4 mg/dL (8.4-10.2); Potassium 4.8 mmol/L (3.5-5.1)
== END ==
LOC: RADXRMAIN 09:47
PROVIDERS: ATTEND Internal Medicine
DX: R05 Cough (principal); I11.9 Hypertensive heart disease without heart failure; E11.9 Type 2 diabetes mellitus without complications
CPT/HCPCS: 71046; 80048

== ENCOUNTER → 2019-03-07 | Outpatient (CLI) | payer MEDICARE ==
[2019-03-07 16:00] LABS: Calcium 9.9 mg/dL (8.7-10.3)
[2019-03-07 18:42] LABS: Hemoglobin A1C 6.5 % (4.0-6.0)
== END | disposition home or self-care (01) ==
LOC: LABWHC1 08:20
PROVIDERS: ATTEND Internal Medicine
DX: E11.9 Type 2 diabetes mellitus without complications (principal); E83.52 Hypercalcemia
CPT/HCPCS: 36415; 82310; 82947; 83036

== ENCOUNTER → 2019-06-01 | Outpatient (CLI) | payer MEDICARE ==
--- NOTE | 2019-06-01 20:36 | CT ---
EXAMINATION TYPE: CT abdomen pelvis w con DATE OF EXAM: 06/01/2019 COMPARISON: May 30, 2018 HISTORY: Hx endometrial cancer. Follow-up. CT DLP: 2304.10 mGycm CONTRAST: CT scan of the abdomen and pelvis is performed with Oral Contrast and with IV Contrast, patient injec dylan with 100 mL of Isovue 300. FINDINGS: LUNG BASES-: No visible nodule. No infiltrate. LIVER/GB: Gallbladder is surgically absent. No space occupying hepatic lesion. Biliary tree is of normal caliber. PANCREAS: No inflammation. No distinct mass. SPLEEN: No splenic enlargement. No lesion seen. ADRENALS: No nodule. No thickening. KIDNEYS/BLADDER: No hydronephrosis. No nephrolithiasis. No distinct renal mass. Urinary bladder g rossly unremarkable. BOWEL: Normal appendix. Normal bowel caliber. No inflammation. GENITAL ORGANS: Changes of hysterectomy and nephrectomy without evidence for recurrent or residual d isease. LYMPH NODES: No greater than 1cm abdominal or pelvic lymph nodes are appreciated. AORTA: No significant abnormality. OSSEOUS STRUCTURES: No significant abnormality is seen. OTHER: No significant additional abnormality is seen. IMPRESSION: 1. Stable appearance of the abdomen and pelvis without evidence for recurrent disease or metastatic d isease.
== END ==
LOC: RADCTMAIN 15:29
PROVIDERS: ATTEND Obstetrics & Gynecology Gynecologic Oncology
DX: C54.1 Malignant neoplasm of endometrium (principal)
CPT/HCPCS: 82565; 84520; 74177; 36415; Q9967

== ENCOUNTER → 2019-07-17 | Outpatient (CLI) | payer MEDICARE ==
[2019-07-17 18:57] LABS: Thyroid Peroxidase Antibodies 42.3 U/mL (0.0-60.0)
[2019-07-17 19:03] LABS: Vitamin D 25 Hydroxy 12.6 ng/mL (30.0-100.0)
[2019-07-17 19:52] LABS: Hemoglobin A1C 6.5 % (4.0-6.0)
== END | disposition home or self-care (01) ==
LOC: LABWHC1 09:28
PROVIDERS: ATTEND Internal Medicine
DX: E11.9 Type 2 diabetes mellitus without complications (principal); E03.9 Hypothyroidism, unspecified; E55.9 Vitamin D deficiency, unspecified
CPT/HCPCS: 36415; 82306; 82947; 83036; 84439; 84443; 86376; 86800

== ENCOUNTER → 2019-11-21 | Outpatient (CLI) | payer MEDICARE ==
[2019-11-21 20:03] LABS: African American GFR (CKD) 62.5 (60.0-200.0); Anion Gap 9.3 mmol/L (4.00-12.00); Calcium 10.2 mg/dL (8.7-10.3); Carbon Dioxide 26.7 mmol/L (21.6-31.8); Non-African American GFR(CKD) 53.9 (60.0-200.0); Potassium 4.5 mmol/L (3.5-5.5)
[2019-11-21 21:12] LABS: Hemoglobin A1C 5.9 % (4.0-6.0)
== END | disposition home or self-care (01) ==
LOC: LABWHC1 12:11
PROVIDERS: ATTEND Internal Medicine
DX: I10 Essential (primary) hypertension (principal); E11.65 Type 2 diabetes mellitus with hyperglycemia; E87.8 Other disorders of electrolyte and fluid balance, not elsewhere classified; E55.9 Vitamin D deficiency, unspecified
CPT/HCPCS: 36415; 80048; 82306; 83036

== ENCOUNTER → 2020-03-27 | Outpatient (CLI) | payer MEDICARE ==
--- NOTE | 2020-03-28 11:09 | MM ---
Reason for exam: screening (asymptomatic). Last mammogram was performed 1 year and 5 months ago. History: Patient is postmenopausal, has history of endometrial cancer at age 77, and is nulliparous. Family history of breast cancer in paternal aunt. Benign MG stereo VAD BX RT of the right breast, April 06, 2018. Benign MG stereo VAD BX RT of the right breast, August 16, 2017. Benign right mammotome panel of the right breast, April 03, 2009. Physical Findings: A clinical breast exam by your physician is recommended on an annual basis and results should be correlated with mammographic findings. MG 3D Screening Mammo W/Cad Bilateral CC and MLO view(s) were taken. Prior study comparison: October 26, 2018, bilateral MG 3d diag mammo w/cad SHER. March 23, 2018, right breast MG 3d diag mammo w/cad RT. The breast tissue is heterogeneously dense. This may lower the sensitivity of mammography. Finding: There are typically benign dystrophic, linear calcifications in both breasts. Previous mammotome biopsy in the right breast. There is no discrete abnormality. ASSESSMENT: Benign, BI-RAD 2 RECOMMENDATION: Routine screening mammogram of both breasts in 1 year.
== END | disposition home or self-care (01) ==
LOC: RADMAMWWP 10:41
PROVIDERS: ATTEND Internal Medicine
DX: Z12.31 Encounter for screening mammogram for malignant neoplasm of breast (principal)
CPT/HCPCS: 77063; 77067

== ENCOUNTER → 2020-06-18 | Outpatient (CLI) | payer MEDICARE ==
--- NOTE | 2020-06-18 17:34 | ECHOF ---
Referral Reason:I25.10 cardiovascular disease MEASUREMENTS -------- HEIGHT: 162.6 cm WEIGHT: 111.1 kg BP: 151/65 RVIDd: 3.2 cm (< 3.3) IVSd: 1.4 cm (0.6 - 1.1) LVIDd: 4.5 cm (3.9 - 5.3) LVPWd: 1.4 cm (0.6 - 1.1) IVSs: 1.8 cm LVIDs: 3.5 cm LVPWs: 2.1 cm LA Diam: 3.5 cm (2.7 - 3.8) LAESV Index (A-L): 16.09 ml/m Ao Diam: 3.7 cm (2.0 - 3.7) AV Cusp: 2.0 cm (1.5 - 2.6) MV EXCURSION: 15.119 mm (> 18.000) MV EF SLOPE: 51 mm/s (70 - 150) EPSS: 0.7 cm MV E Ezio: 0.60 m/s MV DecT: 323 ms MV A Ezio: 1.11 m/s MV E/A Ratio: 0.55 RAP: 5.00 mmHg RVSP: 30.70 mmHg FINDINGS -------- Sinus rhythm. This was a technically adequate study. The left ventricular size is normal. There is moderate concentric left ventricular hypertrophy. O verall left ventricular systolic function is normal with, an EF between 60 - 65 %. The right ventricle is normal in size. Normal LA size by volume 22+/-6 ml/m2. The right atrium is normal in size. The aortic valve is trileaflet and appears structurally normal. The mitral valve is normal. Mild tricuspid regurgitation present. Right ventricular systolic pressure is normal at < 35 mmHg. Trace/mild (physiologic) pulmonic regurgitation. The aortic root size is normal. IVC Not well visulized. There is no pericardial effusion. CONCLUSIONS -------- 1. The left ventricular size is normal. 2. There is moderate concentric left ventricular hypertrophy. 3. Overall left ventricular systolic function is normal with, an EF between 60 - 65 %. 4. Mild tricuspid regurgitation present. 5. Trace/mild (physiologic) pulmonic regurgitation. 6. There is no pericardial effusion. APARTMENT MANAGER: Romi Barrett RDCS
== END | disposition home or self-care (01) ==
LOC: RADECHMAIN 13:44
PROVIDERS: ATTEND Internal Medicine
DX: I07.1 Rheumatic tricuspid insufficiency (principal); I27.20 Pulmonary hypertension, unspecified
CPT/HCPCS: 93306

== ENCOUNTER → 2020-07-02 | Outpatient (CLI) | payer MEDICARE ==
--- NOTE | 2020-07-02 16:31 | CT ---
EXAMINATION TYPE: CT abdomen pelvis w con DATE OF EXAM: 07/02/2020 COMPARISON: 06/01/2019 HISTORY: f/u endometrial ca CT DLP: 2112.9 mGycm Automated exposure control for dose reduction was used. CONTRAST: CT scan of the abdomen pelvis is performed with IV Contrast, patient injected with 80cc mL of Isovue 300. FINDINGS- LUNG BASES-subsegmental linear changes most typical of atelectasis. LIVER/GB-postcholecystectomy changes.. PANCREAS- No gross abnormality is seen. SPLEEN- No gross abnormality is seen. ADRENALS- No gross abnormality is seen. KIDNEYS/BLADDER- no hydronephrosis nephrolithiasis or renal mass. BOWEL-bowel gas pattern nonspecific. Bowel wall thickening involving the distal ileum and right colon which may be related to incomplete distention correlate clinically. No evidence of bowel obstruction .. LYMPH NODES- No greater than 1cm abdominal or pelvic lymph nodes areappreciated. OSSEOUS STRUCTURES-hypertrophic and degenerative change of the spine grade 1 anterolisthesis L4 and L 5 with multilevel facet arthropathy.. OTHER- mild thickening extending from the left thickness across the pelvis stable from the prior exa m could be postsurgical and could be followed on short-term basis. Bladder distends normally. Aorta o f normal caliber with atherosclerotic changes IMPRESSION- 1. No evidence of adenopathy or recurrent mass. Abnormal attenuation within the pelvis appears linear extending from the left adnexa across the pelvis but is stable and may be postsurgical or could be f ollowed on subsequent scans. 2. There is thickening of the wall of the right colon and distal ileum. Although this could be on the basis of incomplete distention correlate clinically to exclude enterocolitis or mucosal lesion. No i nflammatory changes.
== END | disposition home or self-care (01) ==
LOC: RADCTMAIN 14:24
PROVIDERS: ATTEND Obstetrics & Gynecology Gynecologic Oncology
DX: R93.89 Abnormal findings on diagnostic imaging of other specified body structures (principal); K63.89 Other specified diseases of intestine; C54.1 Malignant neoplasm of endometrium
CPT/HCPCS: 82565; 84520; 74177; 36415; Q9967

== ENCOUNTER → 2020-09-23 | Outpatient (CLI) | payer MEDICARE ==
[2020-09-23 21:19] LABS: African American GFR (CKD) 55.3 (60.0-200.0); Anion Gap 14.9 mmol/L (4.00-12.00); BUN/Creat Ratio 23.64 Ratio (12.00-20.00); Calcium 10.1 mg/dL (8.7-10.3); Carbon Dioxide 25.1 mmol/L (21.6-31.8); Non-African American GFR(CKD) 47.7 (60.0-200.0); Potassium 4.4 mmol/L (3.5-5.5)
== END | disposition home or self-care (01) ==
LOC: LABWHC1 10:49
PROVIDERS: ATTEND Internal Medicine
DX: I10 Essential (primary) hypertension (principal); E11.65 Type 2 diabetes mellitus with hyperglycemia
CPT/HCPCS: 36415; 80048

== ENCOUNTER → 2020-10-07 | Outpatient (CLI) | payer MEDICARE ==
--- NOTE | 2020-10-07 15:12 | US ---
EXAMINATION TYPE: US kidneys/renal and bladder DATE OF EXAM: 10/07/2020 COMPARISON: CT July 02, 2020 CLINICAL HISTORY: N28.9 Disorder of kidney and ureter, unspecified. abnormal labs EXAM MEASUREMENTS: Right Kidney: 12.9 x 4.0 x 3.6 cm Left Kidney: 11.4 x 4.6 x 5.2 cm Right Kidney: No hydronephrosis or masses seen Left Kidney: No hydronephrosis or masses seen Bladder: distended, anechoic Bilateral Jets seen Some cortical thinning bilaterally. There is no evidence for hydronephrosis at this point in time. N o nephrolithiasis is seen. No masses are identified. The urinary bladder is satisfactorily distende d. Bilateral ureteral jets are seen. IMPRESSION: No hydronephrosis noted bilaterally.
[2020-10-07 15:59] LABS: Appearance,Urine Clear (Clear); Bacteria,Urine Rare /hpf; Bilirubin,Urine Negative (Negative); Blood,Urine Negative (Negative); Color,Urine Yellow; Glucose,Urine (UA) Negative (Negative); Ketones,Urine Negative (Negative); Leukocyte Esterase,Urine Moderate (Negative); Mucus,Urine Rare /hpf; Nitrite,Urine Negative (Negative); Protein,Urine Negative (Negative); RBC,Urine 1 /hpf (0-5); Specific Gravity,Urine 1.014 (1.001-1.035); Squamous Epithelial Cell,Urine <1 /hpf (0-4); Urobilinogen,Urine <2.0 mg/dL (<2.0); WBC,Urine 12 /hpf (0-5)
[2020-10-07 16:05] LABS: Creatinine,Urine Random 113.1 mg/dL; Protein/Creatinine Ratio,Urine 0.08
[2020-10-08 02:04] LABS: Urine Creatinine 102.3 mg/dL
== END | disposition home or self-care (01) ==
LOC: RADUSWWP 14:32
PROVIDERS: ATTEND Internal Medicine
DX: N28.9 Disorder of kidney and ureter, unspecified (principal); I12.9 Hypertensive chronic kidney disease with stage 1 through stage 4 chronic kidney disease, or unspecified chronic kidney disease; N18.30 Chronic kidney disease, stage 3 unspecified
CPT/HCPCS: 76770; 81001; 82043; 82570; 84156; 84550

== ENCOUNTER 2020-12-19 12:01 | Emergency (ER) | payer MEDICARE ==
[2020-12-19 12:45] VITALS: RESP 18
--- NOTE | 2020-12-19 13:22 | ED ---
Skin/Abscess/FB HPI - General Source: patient, RN notes reviewed Mode of arrival: ambulatory Limitations: no limitations <Geoff Barton - Last Filed: 12/19/20 14:30> <Panchito Rosa - Last Filed: 12/21/20 14:42> - General Chief complaint: Skin/Abscess/Foreign Body Stated complaint: Finger infection Time Seen by Provider: 12/19/20 13:02 - History of Present Illness Initial comments: Patient is a 80-year-old female that presents to emergency department with left index finger abscess. She notes that she has had abscess for about 2 weeks, went to [place] and got a prescription for antibiotics, Keflex. She notices she's been taking the Keflex since last Wednesday with no improvement in the abscess. So she came to the ER today. She stated that there is no pain unless the left index finger is touched or pushed on. She was in no apparent distress or pain while sitting in bed and exam and interview. She denied chest pain short of breath headache nausea vomiting diarrhea constipation fever fatigue chills weakness numbness tingling loss of sensation in her finger. (Geoff Barton) - Related Data Home Medications Medication Instructions Recorded Confirmed Atenolol 50 mg PO HS 10/08/14 12/19/20 Atorvastatin [Lipitor] 10 mg PO HS 10/08/14 12/19/20 Naproxen Sodium [Aleve] 220 mg PO DAILY PRN 12/08/16 12/19/20 Furosemide [Lasix] 20 mg PO HS 12/31/16 12/19/20 Potassium Chloride [Klor-Con 10] 10 meq PO HS 12/31/16 12/19/20 Cephalexin [Keflex] 500 mg PO QID 12/19/20 12/19/20 Olmesartan/Hydrochlorothiazide 1 tab PO HS 12/19/20 12/19/20 [Benicar Hct 20-12.5 mg Tablet] sitaGLIPtin PHOS/metFORMIN HCL 1 tab PO HS 12/19/20 12/19/20 [Janumet 50-1,000 mg Tablet] Previous Rx's Medication Instructions Recorded Sulfamethox-Tmp 800-160Mg [Bactrim 1 tab PO Q12HR 10 Days #20 tab 12/19/20 DS 800-160 mg] Allergies Allergy/AdvReac Type Severity Reaction Status Date / Time No Known Allergies Allergy Verified 12/19/20 14:04 Review of Systems ROS Other: All systems not noted in ROS Statement are negative. <Geoff Barton - Last Filed: 12/19/20 14:30> ROS Other: All systems not noted in ROS Statement are negative. <Panchito Rosa - Last Filed: 12/21/20 14:42> ROS Statement: Those systems with pertinent positive or pertinent negative responses have been documented in the HPI. Past Medical History Past Medical History: Diabetes Mellitus, GERD/Reflux, Hyperlipidemia, Hypertension Additional Past Medical History / Comment(s): Diabetes controlled with meds, no insulin History of Any Multi-Drug Resistant Organisms: None Reported Past Surgical History: Breast Surgery, Cholecystectomy, Hysterectomy, Orthopedic Surgery Additional Past Surgical History / Comment(s): SHER KNEE ARTHROSCOPY. D&C, HYSTEROSCOPY- uterine cancer with radiation/hysterectomy february 2017. RT BREAST STEREO BENIGN 2008, 2016. SHER CATARACT REMOVAL. Past Anesthesia/Blood Transfusion Reactions: No Reported Reaction Past Psychological History: No Psychological Hx Reported Smoking Status: Never smoker Past Alcohol Use History: None Reported, Rare Past Drug Use History: None Reported - Past Family History Brother(s) Family Medical History: Cancer Mother Family Medical History: Cancer <Geoff Barton - Last Filed: 12/19/20 14:30> General Exam Limitations: no limitations General appearance: alert, in no apparent distress, obese Head exam: Present: atraumatic, normocephalic, normal inspection Eye exam: Present: normal appearance, PERRL, EOMI. Absent: scleral icterus, conjunctival injection, periorbital swelling ENT exam: Present: normal exam, mucous membranes moist Neck exam: Present: normal inspection. Absent: tenderness, meningismus, lymphadenopathy Respiratory exam: Present: normal lung sounds bilaterally. Absent: respiratory distress, wheezes, rales, rhonchi, stridor Cardiovascular Exam: Present: regular rate, normal rhythm, normal heart sounds. Absent: systolic murmur, diastolic murmur, rubs, gallop, clicks GI/Abdominal exam: Present: soft, normal bowel sounds. Absent: distended, tenderness, guarding, rebound, rigid Extremities exam: Present: normal inspection, full ROM, normal capillary refill. Absent: tenderness, pedal edema, joint swelling, calf tenderness Neurological exam: Present: alert, oriented X3, CN II-XII intact Psychiatric exam: Present: normal affect, normal mood Skin exam: Present: warm, dry, intact, normal color, other (Abscess to left index finger at the distal aspect that is erythematous and has several white focalization.). Absent: rash <Geoff Barton - Last Filed: 12/19/20 14:30> Course Vital Signs 12/19/20 12/19/20 12:41 15:13 Temperature 98.9 F 98.3 F Pulse Rate 60 67 Respiratory 18 18 Rate Blood Pressure 136/65 138/70 O2 Sat by Pulse 96 97 Oximetry Procedures - Incision & Drainage Consent Obtained: verbal consent Site: hand (Left index finger) Size (cm): 1 Anesthetic Used: lidocaine 1% I&D Cleaning Method: Alcohol Wipe Sterile Field Used?: No Scalpel Used: #11 Needle Aspiration Performed?: No Irrigation Performed?: No I&D Drainage Obtained: Pus, Blood Culture Obtained?: Yes Complications: bleeding Patient Tolerated Procedure: well, no complications <Geoff Barton - Last Filed: 12/19/20 14:30> Medical Decision Making <Geoff Barton - Last Filed: 12/19/20 14:30> - Medical Decision Making 8-year-old female with left index finger abscess. Incision and drainage completed, patient handled well. Abscess culture ordered and sent. Case discussed with Dr. Rosa, decided patient could discharge home with conservative management and follow-up to the hand surgeon. (Geoff Barton) Disposition Is patient prescribed a controlled substance at d/c from ED?: No Time of Disposition: 14:31 <Geoff Barton - Last Filed: 12/19/20 14:30> <Panchito Rosa - Last Filed: 12/21/20 14:42> Clinical Impression: Felon of finger of left hand, Paronychia Disposition: HOME SELF-CARE Condition: Stable Instructions (If sedation given, give patient instructions): Abscess (ED) Additional Instructions: Please return to the Emergency Department if symptoms worsen or any other concerns. Follow-up with primary care in 2-4 days. Take antibiotics as prescribed until complete. Follow-up with hand surgeon as soon as possible. Continue to wash with warm water and soap encouraging drainage. Can take [id number] pain medications for conservative management. Prescriptions: Sulfamethox-Tmp 800-160Mg [Bactrim DS 800-160 mg] 1 tab PO Q12HR 10 Days #20 tab Referrals: Jorge Luis Lr MD [Primary Care Provider] - 1-2 days
[2020-12-19] MEDS ORDERED: LIDOCAINE 1% INJ 10MG/ML (20 ML MDV) SQ ONE (13:40)
[2020-12-19 15:14] VITALS: BP 138/70; PULSE 67; TEMP 98.3
== END 2020-12-19 15:14 | disposition home or self-care (01) ==
LOC: EC 12:01
DX: L03.012 Cellulitis of left finger (principal); E78.5 Hyperlipidemia, unspecified; I10 Essential (primary) hypertension; K21.9 Gastro-esophageal reflux disease without esophagitis; Z79.84 Long term (current) use of oral hypoglycemic drugs; E11.9 Type 2 diabetes mellitus without complications
CPT/HCPCS: 87070; 87205; 99283; 10060; J2001

== ENCOUNTER → 2021-01-07 | Outpatient (CLI) | payer MEDICARE ==
--- NOTE | 2021-01-07 18:40 | CT ---
EXAMINATION TYPE: CT abdomen pelvis wo con DATE OF EXAM: 01/07/2021 COMPARISON: 07/02/2020 INDICATION: F/U for endometrial CA DLP: 1169 mGycm, Automated exposure control for dose reduction was used. CONTRAST: 0 mL of Isovue 300. Study performed with Oral Contrast TECHNIQUE: Axial images were obtained from above the diaphragm to the pubic rami in the axial plane a t 5 mm thick sections. Reconstructed images are reviewed on the computer in the coronal plane. FINDINGS: Limited CT sections are obtained the lung bases. The lung bases are clear. Coronary artery calcific ation is present. CT ABDOMEN: Liver: Normal Spleen: Normal Pancreas: Normal Adrenal glands: The adrenal glands are normal. Gallbladder: Surgically absent Kidneys: No masses are evident. No hydronephrosis is present. No cysts are present. No renal stone s are evident. Aorta: Vascular calcification is within the aorta. Inferior vena cava: Normal. CT PELVIS: Loops of bowel within the abdomen and pelvis are normal. A few diverticular changes are present. No a cute diverticulitis is evident. There are loops of bowel which are incompletely distended or lack oral contrast limiting their evaluation. Appendix: Normal as visualized. Urinary bladder: Normal. Genitourinary structures: Uterus and ovaries are not identified. There is a small amount of free flui d within the pelvis Osseous structures: No suspicious lytic or sclerotic lesions. Facet degenerative changes within the l umbar spine. IMPRESSIONS: 1. Small amount of free fluid within the pelvis. 2. Diverticulosis without diverticulitis. 3. No suspicious changes to suggest metastatic disease.
== END | disposition home or self-care (01) ==
LOC: RADCTMAIN 13:57
PROVIDERS: ATTEND Obstetrics & Gynecology Gynecologic Oncology
DX: K57.90 Diverticulosis of intestine, part unspecified, without perforation or abscess without bleeding (principal); R93.89 Abnormal findings on diagnostic imaging of other specified body structures; C54.1 Malignant neoplasm of endometrium; Z92.3 Personal history of irradiation; Z90.710 Acquired absence of both cervix and uterus
CPT/HCPCS: 36415; 74176; 82565; 84520

== ENCOUNTER → 2021-01-30 | Outpatient (CLI) | payer MEDICARE | END | disposition home or self-care (01) | LOC: LABWHC1 11:52 | PROVIDERS: ATTEND Internal Medicine | DX: M10.9 Gout, unspecified (principal) | CPT/HCPCS: 36415; 84550 ==

== ENCOUNTER → 2021-03-03 | Outpatient (CLI) | payer MEDICARE ==
[2021-03-03 14:48] LABS: Basophils # (A) 0.02 X 10*3/uL (0.00-0.10); Basophils % (A) 0.5 %; Eosinophils # (A) 0.11 X 10*3/uL (0.04-0.35); Eosinophils % (A) 2.8 %; HCT 38.1 % (37.2-46.3); HGB 12.4 g/dL (12.0-15.0); Lymphocytes # (A) 0.78 X 10*3/uL (0.90-5.00); Lymphocytes % (A) 20.2 %; MCH 32.8 pg (27.0-32.0); MCHC 32.5 g/dL (32.0-37.0); MCV 100.8 fL (80.0-97.0); Mean Platelet Volume 11.9 fL (9.5-12.2); Monocytes # (A) 0.38 X 10*3/uL (0.20-1.00); Monocytes % (A) 9.8 %; Neutrophils % (A) 64.9 %; Platelet Count 180 X 10*3/uL (140-440); RBC 3.78 X 10*6/uL (4.10-5.20); RDW 14.5 % (11.5-14.5); WBC 3.86 X 10*3/uL (4.50-10.00)
[2021-03-03 15:55] LABS: African American GFR (CKD) 54.9 (60.0-200.0); Anion Gap 8.8 mmol/L (4.00-12.00); BUN/Creat Ratio 19.09 Ratio (12.00-20.00); Calcium 9.7 mg/dL (8.7-10.3); Carbon Dioxide 26.2 mmol/L (21.6-31.8); Non-African American GFR(CKD) 47.4 (60.0-200.0); Potassium 4.4 mmol/L (3.5-5.5)
[2021-03-04 16:33] LABS: Hemoglobin A1C 5.9 % (4.0-6.0)
== END | disposition home or self-care (01) ==
LOC: LABWHC1 10:44
PROVIDERS: ATTEND Internal Medicine
DX: M10.9 Gout, unspecified (principal); E11.9 Type 2 diabetes mellitus without complications
CPT/HCPCS: 36415; 80048; 83036; 84550; 85025

== ENCOUNTER → 2021-04-25 | Outpatient (CLI) | payer MEDICARE ==
[2021-04-25 17:06] LABS: Creatinine,Urine Random 519.5 mg/dL; Protein/Creatinine Ratio,Urine 0.029
[2021-04-25 23:37] LABS: Basophils # (A) 0.03 X 10*3/uL (0.00-0.10); Basophils % (A) 0.3 %; Eosinophils # (A) 0.04 X 10*3/uL (0.04-0.35); Eosinophils % (A) 0.5 %; HCT 33.7 % (37.2-46.3); HGB 10.7 g/dL (12.0-15.0); Lymphocytes # (A) 0.64 X 10*3/uL (0.90-5.00); Lymphocytes % (A) 7.3 %; MCH 32.3 pg (27.0-32.0); MCHC 31.8 g/dL (32.0-37.0); MCV 101.8 fL (80.0-97.0); Mean Platelet Volume 11.5 fL (9.5-12.2); Monocytes % (A) 9.1 %; Neutrophils # (A) 7.24 X 10*3/uL (1.80-7.70); Platelet Count 269 X 10*3/uL (140-440); RBC 3.31 X 10*6/uL (4.10-5.20); RDW 13.7 % (11.5-14.5); WBC 8.82 X 10*3/uL (4.50-10.00)
[2021-04-26 01:38] LABS: Erythrocyte Sedimentation Rate 75 mm/Hr (0-30)
[2021-04-26 15:21] LABS: African American GFR (CKD) 61.6 (60.0-200.0); Anion Gap 16.3 mmol/L (4.00-12.00); C Reactive Protein 20.5 mg/dL (0.0-0.8); Calcium 9.6 mg/dL (8.7-10.3); Carbon Dioxide 21.7 mmol/L (21.6-31.8); Non-African American GFR(CKD) 53.2 (60.0-200.0); Potassium 3.9 mmol/L (3.5-5.5)
[2021-04-26 15:40] LABS: Uric Acid 4.9 mg/dL (2.9-7.7)
== END | disposition home or self-care (01) ==
LOC: LABWHC1 15:40
PROVIDERS: ATTEND Internal Medicine
DX: M10.9 Gout, unspecified (principal); E11.65 Type 2 diabetes mellitus with hyperglycemia; I50.9 Heart failure, unspecified; R60.9 Edema, unspecified; R80.9 Proteinuria, unspecified
CPT/HCPCS: 36415; 80048; 82550; 82570; 83880; 84156; 84550; 85025; 85652; 86140

== ENCOUNTER → 2021-05-12 | Outpatient (CLI) | payer MEDICARE ==
--- NOTE | 2021-05-13 10:46 | MM ---
Reason for exam: screening (asymptomatic). Last mammogram was performed 1 year and 1 month ago. History: Patient is postmenopausal, has history of endometrial cancer at age 77, and is nulliparous. Family history of breast cancer in paternal aunt. Benign MG stereo VAD BX RT of the right breast, April 06, 2018. Benign MG stereo VAD BX RT of the right breast, August 16, 2017. Benign right mammotome panel of the right breast, April 03, 2009. Physical Findings: A clinical breast exam by your physician is recommended on an annual basis and results should be correlated with mammographic findings. MG 3D Screening Mammo W/Cad Bilateral CC and MLO view(s) were taken. Prior study comparison: March 27, 2020, bilateral MG 3d screening mammo w/cad. October 26, 2018, bilateral MG 3d diag mammo w/cad SHER. March 23, 2018, right breast MG 3d diag mammo w/cad RT. The breast tissue is heterogeneously dense. This may lower the sensitivity of mammography. There are benign appearing round dystrophic calcifications bilaterally. Previous mammotome biopsy in the right breast x 2. There is no discrete abnormality. ASSESSMENT: Benign, BI-RAD 2 RECOMMENDATION: Routine screening mammogram of both breasts in 1 year.
== END | disposition home or self-care (01) ==
LOC: RADMAMWWP 09:33
PROVIDERS: ATTEND Internal Medicine
DX: Z12.31 Encounter for screening mammogram for malignant neoplasm of breast (principal); Z80.3 Family history of malignant neoplasm of breast; Z78.0 Asymptomatic menopausal state
CPT/HCPCS: 77063; 77067

== ENCOUNTER → 2021-05-20 | Outpatient (CLI) | payer MEDICARE ==
[2021-05-20 20:50] LABS: % Iron Saturation 23.93 (12.00-45.00); African American GFR (CKD) 61.6 (60.0-200.0); Anion Gap 14.1 mmol/L (4.00-12.00); Calcium 9.8 mg/dL (8.7-10.3); Carbon Dioxide 23.9 mmol/L (21.6-31.8); Non-African American GFR(CKD) 53.2 (60.0-200.0); Potassium 4.5 mmol/L (3.5-5.5)
[2021-05-20 20:57] LABS: Ferritin 238.8 ng/mL (10.0-291.0)
[2021-05-20 21:27] LABS: Folate, Serum 13.6 ng/mL
== END | disposition home or self-care (01) ==
LOC: LABWHC1 10:36
PROVIDERS: ATTEND Internal Medicine
DX: E11.65 Type 2 diabetes mellitus with hyperglycemia (principal); I10 Essential (primary) hypertension; E87.8 Other disorders of electrolyte and fluid balance, not elsewhere classified; D64.9 Anemia, unspecified; E83.42 Hypomagnesemia; R25.2 Cramp and spasm
CPT/HCPCS: 36415; 80048; 82607; 82728; 82746; 83540; 83550; 84207; 84425

== ENCOUNTER → 2021-08-28 | Outpatient (CLI) | payer MEDICARE ==
[2021-08-28 21:03] LABS: Basophils # (A) 0.05 X 10*3/uL (0.00-0.10); Basophils % (A) 0.7 %; Eosinophils # (A) 0.13 X 10*3/uL (0.04-0.35); Eosinophils % (A) 1.9 %; HCT 38.6 % (37.2-46.3); HGB 12.3 g/dL (12.0-15.0); Lymphocytes # (A) 1.18 X 10*3/uL (0.90-5.00); Lymphocytes % (A) 17.3 %; MCH 33.4 pg (27.0-32.0); MCHC 31.9 g/dL (32.0-37.0); MCV 104.9 fL (80.0-97.0); Mean Platelet Volume 12.1 fL (9.5-12.2); Monocytes # (A) 0.66 X 10*3/uL (0.20-1.00); Monocytes % (A) 9.6 %; Neutrophils % (A) 68.7 %; Platelet Count 183 X 10*3/uL (140-440); RBC 3.68 X 10*6/uL (4.10-5.20); RDW 15.3 % (11.5-14.5); WBC 6.84 X 10*3/uL (4.50-10.00)
[2021-08-28 21:35] LABS: ALT 21 U/L (8-44); AST 31 U/L (13-35); African American GFR (CKD) 62.3 (60.0-200.0); Albumin 4.5 g/dL (3.8-4.9); Alkaline Phosphatase 73 U/L (41-126); BUN/Creat Ratio 18.06 Ratio (12.00-20.00); Blood Urea Nitrogen 17.9 mg/dL (9.0-27.0); Carbon Dioxide 23.1 mmol/L (21.6-31.8); Chloride 100 mmol/L (96-109); Chol/HDL Ratio 3.88 Ratio; Creatine Kinase 71 U/L (26-186); Globulin 2.1 g/dL (1.6-3.3); Glucose 107 mg/dL (70-110); LDL Cholesterol,Calculated 41.6 mg/dL (0.0-131.0); Magnesium 1.3 mg/dL (1.5-2.4); Non-African American GFR(CKD) 53.8 (60.0-200.0); Phosphorus 3.4 mg/dL (2.4-5.1); Potassium 4.7 mmol/L (3.5-5.5); Sodium 139 mmol/L (135-145); Total Protein 6.6 g/dL (6.2-8.2); Uric Acid 5.4 mg/dL (2.9-7.7)
[2021-08-28 21:53] LABS: Erythrocyte Sedimentation Rate 17 mm/Hr (0-30)
[2021-08-29 00:26] LABS: C Reactive Protein <0.30 mg/dL (0.00-0.80)
== END | disposition home or self-care (01) ==
LOC: LABWHC1 14:25
PROVIDERS: ATTEND Psychiatry & Neurology Neurology
DX: Z00.00 Encounter for general adult medical examination without abnormal findings (principal); I12.9 Hypertensive chronic kidney disease with stage 1 through stage 4 chronic kidney disease, or unspecified chronic kidney disease; M10.9 Gout, unspecified; M81.0 Age-related osteoporosis without current pathological fracture; E78.5 Hyperlipidemia, unspecified; E11.65 Type 2 diabetes mellitus with hyperglycemia; E03.9 Hypothyroidism, unspecified; E66.9 Obesity, unspecified; E55.9 Vitamin D deficiency, unspecified; D63.1 Anemia in chronic kidney disease; N18.30 Chronic kidney disease, stage 3 unspecified
CPT/HCPCS: 36415; 80053; 80061; 82306; 82550; 83036; 83735; 84100; 84443; 84550; 85025; 85652; 86140

== ENCOUNTER → 2021-12-16 | Outpatient (CLI) | payer MEDICARE ==
[2021-12-16 12:55] LABS: Basophils # (A) 0.1 k/uL (0-0.2); Basophils % (A) 1 %; Eosinophils # (A) 0.2 k/uL (0-0.7); Eosinophils % (A) 3 %; HCT 41.3 % (34.0-46.0); HGB 13.3 gm/dL (11.4-16.0); Lymphocytes % (A) 14 %; MCH 33.8 pg (25.0-35.0); MCHC 32.3 g/dL (31.0-37.0); MCV 104.7 fL (80.0-100.0); Macrocytosis Moderate; Mean Platelet Volume 8.5; Monocytes # (A) 0.4 k/uL (0-1.0); Monocytes % (A) 5 %; Neutrophils # (A) 5.2 k/uL (1.3-7.7); Neutrophils % (A) 75 %; Platelet Count 187 k/uL (150-450); RBC 3.94 m/uL (3.80-5.40); RDW 14.7 % (11.5-15.5); WBC 6.9 k/uL (3.8-10.6)
[2021-12-16 18:24] LABS: T4, Free (Free Thyroxine) 1.09 ng/dL (0.800-1.800)
== END | disposition home or self-care (01) ==
LOC: LABWHC1 12:04
PROVIDERS: ATTEND Internal Medicine
DX: E53.9 Vitamin B deficiency, unspecified (principal); E53.8 Deficiency of other specified B group vitamins
CPT/HCPCS: 36415; 82607; 82746; 83921; 84439; 84443; 85025

== ENCOUNTER → 2022-05-22 | Outpatient (CLI) | payer MEDICARE ==
[2022-05-22 18:23] LABS: African American GFR (CKD) 70.9 (60.0-200.0); Anion Gap 10.1 mmol/L (10.00-18.00); BUN/Creat Ratio 24.29 Ratio (12.00-20.00); Blood Urea Nitrogen 21.5 mg/dL (9.0-27.0); Calcium 10.2 mg/dL (8.7-10.3); Carbon Dioxide 26.1 mmol/L (20.0-27.5); Magnesium 1.8 mg/dL (1.5-2.4); Non-African American GFR(CKD) 61.2 (60.0-200.0); Potassium 4.7 mmol/L (3.5-5.5)
== END | disposition home or self-care (01) ==
LOC: LABWHC1 11:37
PROVIDERS: ATTEND Internal Medicine
DX: E87.8 Other disorders of electrolyte and fluid balance, not elsewhere classified (principal)
CPT/HCPCS: 36415; 80048; 83735

== ENCOUNTER → 2022-08-20 | Outpatient (CLI) | payer MEDICARE ==
--- NOTE | 2022-08-21 07:46 | MM ---
Reason for Exam: Screening (asymptomatic). Last mammogram was performed 1 year(s) and 3 month(s) ago. Patient History: Menarche at age 13. Patient has no children. Left ovary removed at age 77. Right ovary removed at age 77. Hysterectomy at age 77. Postmenopausal. Endometrial cancer, age 77. 04/06/2018, Benign Core Biopsy on the right side. 08/16/2017, Benign Core Biopsy on the right side. 04/03/2009, Benign Core Biopsy on the right side. Paternal aunt had breast cancer. Risk Values: Rosalba 5 year model risk: 2.7%. NCI Lifetime model risk: 3.9%. Prior Study Comparison: 10/26/2018 Bilateral Diagnostic Mammogram, [facility]. 03/27/2020 Bilateral Screening Mammogram, [facility]. 05/12/2021 Bilateral Screening Mammogram, [facility]. Tissue Density: The breast tissue is heterogeneously dense. This may lower the sensitivity of mammography. Findings: Analyzed By CAD. There is no suspicious group of microcalcifications or new suspicious mass in either breast. Overall Assessment: Benign, BI-RAD 2 Management: Screening Mammogram of both breasts in 1 year. A clinical breast exam by your physician is recommended on an annual basis and results should be correlated with mammographic findings. Electronically signed and approved by: Naresh Peña M.D. Radiologis
== END | disposition home or self-care (01) ==
LOC: RADMAMWWP 16:13
PROVIDERS: ATTEND Internal Medicine
DX: Z12.31 Encounter for screening mammogram for malignant neoplasm of breast (principal); Z78.0 Asymptomatic menopausal state; Z80.3 Family history of malignant neoplasm of breast; Z98.890 Other specified postprocedural states
CPT/HCPCS: 77063; 77067

== ENCOUNTER → 2022-09-14 | Outpatient (CLI) | payer MEDICARE ==
[2022-09-14 18:07] LABS: Basophils # (A) 0.04 X 10*3/uL (0.00-0.10); Basophils % (A) 0.5 %; Eosinophils # (A) 0.18 X 10*3/uL (0.04-0.35); Eosinophils % (A) 2.2 %; HCT 41.3 % (37.2-46.3); HGB 13.3 g/dL (12.0-15.0); Immature Grans, Automated 1.4 %; Lymphocytes # (A) 1.22 X 10*3/uL (0.90-5.00); MCH 33.8 pg (27.0-32.0); MCHC 32.2 g/dL (32.0-37.0); MCV 104.8 fL (80.0-97.0); Mean Platelet Volume 11.3 fL (9.5-12.2); Monocytes # (A) 0.62 X 10*3/uL (0.20-1.00); Monocytes % (A) 7.6 %; NRBC Per 100 WBC 0 /100 WBCS (0.0-0.0); Neutrophils # (A) 5.96 X 10*3/uL (1.80-7.70); Neutrophils % (A) 73.3 %; Platelet Count 221 X 10*3/uL (140-440); RBC 3.94 X 10*6/uL (4.10-5.20); RDW 14.7 % (11.5-14.5); WBC 8.13 X 10*3/uL (4.50-10.00)
[2022-09-14 18:41] LABS: Chol/HDL Ratio 2.82 Ratio; Creatine Kinase 68 U/L (26-186); LDL Cholesterol,Calculated 47.1 mg/dL (0.0-131.0)
[2022-09-14 19:23] LABS: % Iron Saturation 12.16 (12.00-45.00); ALT 21 U/L (8-44); AST 20 U/L (13-35); African American GFR (CKD) 60.5 (60.0-200.0); Albumin 4.8 g/dL (3.8-4.9); Albumin/Globulin Ratio 2.05 (1.60-3.17); Alkaline Phosphatase 81 U/L (41-126); Blood Urea Nitrogen 20.1 mg/dL (9.0-27.0); Calcium 10.1 mg/dL (8.7-10.3); Carbon Dioxide 24.6 mmol/L (20.0-27.5); Chloride 102 mmol/L (96-109); Globulin 2.3 g/dL (1.6-3.3); Glucose 118 mg/dL (70-110); Iron 48 ug/dL (50-170); Magnesium 1.8 mg/dL (1.5-2.4); Non-African American GFR(CKD) 52.2 (60.0-200.0); Phosphorus 3.2 mg/dL (2.4-5.1); Potassium 5.3 mmol/L (3.5-5.5); Sodium 141 mmol/L (135-145); Total Iron Binding Capacity 391 ug/dL (228-460); Total Protein 7.1 g/dL (6.2-8.2); Uric Acid 4.9 mg/dL (2.9-7.7)
[2022-09-14 20:48] LABS: Erythrocyte Sedimentation Rate 14 mm/Hr (0-30)
[2022-09-15 13:35] LABS: C Reactive Protein <0.30 mg/dL (0.00-0.80)
== END | disposition home or self-care (01) ==
LOC: LABWHC1 11:01
PROVIDERS: ATTEND Internal Medicine
DX: Z00.00 Encounter for general adult medical examination without abnormal findings (principal); D64.9 Anemia, unspecified; I10 Essential (primary) hypertension; E11.65 Type 2 diabetes mellitus with hyperglycemia; E66.9 Obesity, unspecified; E55.9 Vitamin D deficiency, unspecified; E87.8 Other disorders of electrolyte and fluid balance, not elsewhere classified; M10.9 Gout, unspecified; E78.5 Hyperlipidemia, unspecified
CPT/HCPCS: 36415; 80053; 80061; 82306; 82550; 82728; 83036; 83540; 83550; 83735; 84100; 84443; 84550; 85025; 85652; 86140

== ENCOUNTER → 2022-11-03 | Outpatient (CLI) | payer MEDICARE | END | disposition home or self-care (01) | LOC: LABWHC1 11:28 | PROVIDERS: ATTEND Internal Medicine | DX: D75.89 Other specified diseases of blood and blood-forming organs (principal) | CPT/HCPCS: 36415; 82607; 82746 ==

== ENCOUNTER → 2023-04-14 | Outpatient (CLI) | payer MEDICARE ==
[2023-04-14 16:12] LABS: BUN/Creat Ratio 19.89 Ratio (12.00-20.00); Blood Urea Nitrogen 17.9 mg/dL (9.0-27.0); Calcium 10.2 mg/dL (8.7-10.3); Carbon Dioxide 26.6 mmol/L (21.6-31.8); Chloride 107 mmol/L (96-109); Glucose 110 mg/dL (70-110); Potassium 5.1 mmol/L (3.5-5.5); Sodium 145 mmol/L (135-145)
== END | disposition home or self-care (01) ==
LOC: LABWHC1 10:29
PROVIDERS: ATTEND Internal Medicine
DX: I10 Essential (primary) hypertension (principal); E11.65 Type 2 diabetes mellitus with hyperglycemia; E87.8 Other disorders of electrolyte and fluid balance, not elsewhere classified
CPT/HCPCS: 36415; 80048; 83036

== ENCOUNTER 2023-10-08 15:34 | Inpatient (IN) | payer MEDICARE ==
--- NOTE | 2023-10-08 16:35 | ED ---
General Adult HPI - General Stated complaint: pain/swelling tailbone Time Seen by Provider: 10/08/23 16:34 Source: patient, RN notes reviewed - History of Present Illness Initial comments: 83-year-old female presents to the emergency department for evaluation of abscess on tailbone. She states that she noticed it about 1 month ago. She reports drainage from the area x3 days. Denies fever, chills, nausea, vomiting. Past medical history includes diabetes, hypertension. Denies history of MRSA. - Related Data Home Medications Medication Instructions Recorded Confirmed Atenolol 50 mg PO DAILY 10/08/14 10/08/23 Atorvastatin [Lipitor] 10 mg PO HS 10/08/14 10/08/23 sitaGLIPtin PHOS/metFORMIN HCL 1 tab PO W/SUPPER 12/19/20 10/08/23 [Janumet 50-1,000 mg Tablet] Artificial Tears-Hypromellose 1 drop BOTH EYES QID PRN 10/08/23 10/08/23 [Artificial Tear Drops] Fexofenadine HCl [[place] Allergy] 180 mg PO DAILY 10/08/23 10/08/23 Losartan [Cozaar] 50 mg PO DAILY 10/08/23 10/08/23 allopurinoL [Zyloprim] 300 mg PO DAILY 10/08/23 10/08/23 Allergies Allergy/AdvReac Type Severity Reaction Status Date / Time No Known Allergies Allergy Verified 10/08/23 22:53 Review of Systems ROS Statement: Those systems with pertinent positive or pertinent negative responses have been documented in the HPI. ROS Other: All systems not noted in ROS Statement are negative. Past Medical History Past Medical History: Diabetes Mellitus, GERD/Reflux, Hyperlipidemia, Hypertension Additional Past Medical History / Comment(s): Diabetes controlled with meds, no insulin History of Any Multi-Drug Resistant Organisms: None Reported Past Surgical History: Breast Surgery, Cholecystectomy, Hysterectomy, Orthopedic Surgery Additional Past Surgical History / Comment(s): SHER KNEE ARTHROSCOPY. D&C, HYSTEROSCOPY- uterine cancer with radiation/hysterectomy february 2017. RT BREAST STEREO BENIGN 2008, 2016. SHER CATARACT REMOVAL. Past Anesthesia/Blood Transfusion Reactions: No Reported Reaction Past Psychological History: No Psychological Hx Reported Smoking Status: Never smoker Past Alcohol Use History: None Reported, Rare Past Drug Use History: None Reported - Past Family History Brother(s) Family Medical History: Cancer Mother Family Medical History: Cancer General Exam - General Exam Comments Initial Comments: Visual Physical Exam Vital signs reviewed General: Well-appearing, nontoxic, no acute distress. Head: Normocephalic, atraumatic Eyes: PERRLA, EOMI ENT: Airway patent Chest: Nonlabored breathing Skin: No visual rash, normal skin tone Neuro: Alert and oriented 3 Musculoskeletal: No gross abnormalities Limitations: no limitations General appearance: alert, in no apparent distress Head exam: Present: atraumatic, normocephalic, normal inspection Eye exam: Present: normal appearance, PERRL, EOMI. Absent: scleral icterus, conjunctival injection, periorbital swelling ENT exam: Present: normal exam, mucous membranes moist Neck exam: Present: normal inspection. Absent: tenderness, meningismus, lymphadenopathy Respiratory exam: Present: normal lung sounds bilaterally. Absent: respiratory distress, wheezes, rales, rhonchi, stridor Cardiovascular Exam: Present: regular rate, normal rhythm, normal heart sounds. Absent: systolic murmur, diastolic murmur, rubs, gallop, clicks GI/Abdominal exam: Present: soft, normal bowel sounds. Absent: distended, tenderness, guarding, rebound, rigid Rectal exam: Present: mass, tenderness Extremities exam: Present: normal inspection Back exam: Present: normal inspection Neurological exam: Present: alert, oriented X3 Psychiatric exam: Present: normal affect, normal mood Skin exam: Present: warm, dry, erythema, other (perineal abscess with erythema and induration). Absent: intact, normal color Course Vital Signs 10/08/23 10/08/23 10/08/23 16:32 22:16 23:07 Temperature 989.1 F H 99.3 F Pulse Rate 75 77 Respiratory 16 18 Rate Blood Pressure 168/77 149/72 112/84 O2 Sat by Pulse 98 94 L Oximetry Medical Decision Making - Medical Decision Making quick note preformed by Gay Hermosillo PA-C Was pt. sent in by a medical professional or institution ([facility] Otoole, [employer], urgent care, hospital, or detention...) When possible be specific @ -No Did you speak to anyone other than the patient for history (EMS, parent, family, police, friend...)? What history was obtained from this source @ -No Did you review nursing and triage notes (agree or disagree)? Why? @ -I reviewed and agree with nursing and triage notes Were old charts reviewed (outside hosp., previous admission, EMS record, old EKG, old radiological studies, urgent care reports/EKG's, detention records)? Report findings @ -No old charts were reviewed Differential Diagnosis (chest pain, altered mental status, abdominal pain women, abdominal pain men, vaginal bleeding, weakness, fever, dyspnea, syncope, headache, dizziness, GI bleed, back pain, seizure, CVA, palpatations, mental health, musculoskeletal)? @ -abscess, perianal abscess, perineal abscess, EKG interpreted by me (3pts min.). @ -none X-rays interpreted by me (1pt min.). @ -None done CT interpreted by me (1pt min.). @ -CT abd pelvis shows right perineum fluid collection in close proximity to the rectum and the vagina measuring 5.3 x 1.7 x 4.2 with gas U/S interpreted by me (1pt. min.). @ -None done What testing was considered but not performed or refused? (CT, X-rays, U/S, labs)? Why? @ -None What meds were considered but not given or refused? Why? @ -None Did you discuss the management of the patient with other professionals (professionals i.e. , PA, [employer], lab, RT, psych nurse, social welfare administrator, violin repairer, teacher, president and chief operating officer, case monitor)? Give summary @ -Case discussed with Dr. Lr who recommends observation with IV antibiotics and surgical consult Was smoking cessation discussed for >3mins.? @ -No Was critical care preformed (if so, how long)? @ -No Were there social determinants of health that impacted care today? How? (Homelessness, low income, unemployed, alcoholism, drug addiction, transportation, low edu. Level, literacy, decrease access to med. care, long-term, rehab)? @ -No Was there de-escalation of care discussed even if they declined (Discuss DNR or withdrawal of care, Hospice)? DNR status @ -No What co-morbidities impacted this encounter? (DM, HTN, Smoking, COPD, CAD, Cancer, CVA, ARF, Chemo, Hep., AIDS, mental health diagnosis, sleep apnea, morbid obesity)? @ -None Was patient admitted / discharged? Hospital course, mention meds given and route, prescriptions, significant lab abnormalities, going to OR and other pertinent info. @ -admitted. Emergency room female presented to the emergency department for evaluation of a draining abscess in her gluteal region 3 days.Laboratory studies obtained. CBC shows WBC 8.9; CMP shows sodium 136, potassium 4.8; lactic acid 1.0; CT abdomen and pelvis obtained which shows fluid collection in the perineum in close proximity to the rectum and the vagina. Wound cultures were obtained. Blood cultures obtained. Patient will be started on vancomycin. Case was discussed with Dr. Lr who recommends observation admission with consult to general surgery. Patient stable at time of admission. case discussed with Dr. Thompson Undiagnosed new problem with uncertain prognosis? @ -No Drug Therapy requiring intensive monitoring for toxicity (Heparin, Nitro, Insulin, Cardizem)? @ -No Were any procedures done? @ -No Diagnosis/symptom? @ -perineal abscess Acute, or Chronic, or Acute on Chronic? @ -acute Uncomplicated (without systemic symptoms) or Complicated (systemic symptoms)? @ -uncomplicated Side effects of treatment? @ -No Exacerbation, Progression, or Severe Exacerbation? @ -No Poses a threat to life or bodily function? How? (Chest pain, [place], HI, pneumonia, PE, COPD, DKA, ARF, appy, cholecystitis, CVA, Diverticulitis, Homicidal, Suicidal, threat to staff... and all critical care pts) @ -No - Lab Data Result diagrams: 10/08/23 19:02 10/08/23 19:02 Lab Results 10/08/23 10/08/23 10/08/23 Range/Units 19:02 19:02 19:02 WBC 8.9 (3.8-10.6) k/uL RBC 3.86 (3.80-5.40) m/uL Hgb 12.5 (11.4-16.0) gm/dL Hct 38.0 (34.0-46.0) % MCV 98.3 (80.0-100.0) fL MCH 32.5 (25.0-35.0) pg MCHC 33.0 (31.0-37.0) g/dL RDW 14.8 (11.5-15.5) % Plt Count 211 (150-450) k/uL MPV 8.8 Neutrophils % 82 % Lymphocytes % 9 % Monocytes % 6 % Eosinophils % 1 % Basophils % 0 % Neutrophils # 7.3 (1.3-7.7) k/uL Lymphocytes # 0.8 L (1.0-4.8) k/uL Monocytes # 0.6 (0-1.0) k/uL Eosinophils # 0.1 (0-0.7) k/uL Basophils # 0.0 (0-0.2) k/uL PT (10.0-12.5) sec INR (<1.2) APTT (22.0-30.0) sec Sodium 136 L (137-145) mmol/L Potassium 4.8 (3.5-5.1) mmol/L Chloride 99 (98-107) mmol/L Carbon Dioxide 27 (22-30) mmol/L Anion Gap 10 mmol/L BUN 17 (7-17) mg/dL Creatinine 0.76 (0.52-1.04) mg/dL Est GFR (CKD-EPI)AfAm 85 (>60 ml/min/1.73 sqM) Est GFR (CKD-EPI)NonAf 74 (>60 ml/min/1.73 sqM) Glucose 109 H (74-99) mg/dL Plasma Lactic Acid Jaime 1.0 (0.7-2.0) mmol/L Calcium 10.1 (8.4-10.2) mg/dL Total Bilirubin 0.8 (0.2-1.3) mg/dL AST 24 (14-36) U/L ALT 13 (4-34) U/L Alkaline Phosphatase 95 (38-126) U/L Total Protein 6.5 (6.3-8.2) g/dL Albumin 3.7 (3.5-5.0) g/dL 10/08/23 Range/Units 19:02 WBC (3.8-10.6) k/uL RBC (3.80-5.40) m/uL Hgb (11.4-16.0) gm/dL Hct (34.0-46.0) % MCV (80.0-100.0) fL MCH (25.0-35.0) pg MCHC (31.0-37.0) g/dL RDW (11.5-15.5) % Plt Count (150-450) k/uL MPV Neutrophils % % Lymphocytes % % Monocytes % % Eosinophils % % Basophils % % Neutrophils # (1.3-7.7) k/uL Lymphocytes # (1.0-4.8) k/uL Monocytes # (0-1.0) k/uL Eosinophils # (0-0.7) k/uL Basophils # (0-0.2) k/uL PT 10.0 (10.0-12.5) sec INR 0.9 (<1.2) APTT 24.4 (22.0-30.0) sec Sodium (137-145) mmol/L Potassium (3.5-5.1) mmol/L Chloride (98-107) mmol/L Carbon Dioxide (22-30) mmol/L Anion Gap mmol/L BUN (7-17) mg/dL Creatinine (0.52-1.04) mg/dL Est GFR (CKD-EPI)AfAm (>60 ml/min/1.73 sqM) Est GFR (CKD-EPI)NonAf (>60 ml/min/1.73 sqM) Glucose (74-99) mg/dL Plasma Lactic Acid Jaime (0.7-2.0) mmol/L Calcium (8.4-10.2) mg/dL Total Bilirubin (0.2-1.3) mg/dL AST (14-36) U/L ALT (4-34) U/L Alkaline Phosphatase (38-126) U/L Total Protein (6.3-8.2) g/dL Albumin (3.5-5.0) g/dL Disposition Clinical Impression: Perineal abscess Disposition: ADMITTED IP TO THIS HOSP Condition: Stable Is patient prescribed a controlled substance at d/c from ED?: No Referrals: Jorge Luis Lr MD [Primary Care Provider] - 1-2 days
[2023-10-08 20:06] LABS: ALT 13 U/L (4-34); AST 24 U/L (14-36); African American GFR (CKD) 85 (>60 ml/min/1.73 sqM); Albumin 3.7 g/dL (3.5-5.0); Alkaline Phosphatase 95 U/L (38-126); Anion Gap 10 mmol/L; Blood Urea Nitrogen 17 mg/dL (7-17); Calcium 10.1 mg/dL (8.4-10.2); Carbon Dioxide 27 mmol/L (22-30); Chloride 99 mmol/L (98-107); Glucose 109 mg/dL (74-99); Non-African American GFR(CKD) 74 (>60 ml/min/1.73 sqM); Potassium 4.8 mmol/L (3.5-5.1); Sodium 136 mmol/L (137-145); Total Bilirubin 0.8 mg/dL (0.2-1.3); Total Protein 6.5 g/dL (6.3-8.2)
[2023-10-08 20:16] LABS: INR 0.9 (<1.2); Partial Thromboplastin Time 24.4 sec (22.0-30.0)
[2023-10-08 20:56] LABS: Basophils % (A) 0 %; Eosinophils # (A) 0.1 k/uL (0-0.7); Eosinophils % (A) 1 %; HGB 12.5 gm/dL (11.4-16.0); Lymphocytes # (A) 0.8 k/uL (1.0-4.8); Lymphocytes % (A) 9 %; MCH 32.5 pg (25.0-35.0); MCV 98.3 fL (80.0-100.0); Mean Platelet Volume 8.8; Monocytes # (A) 0.6 k/uL (0-1.0); Monocytes % (A) 6 %; Neutrophils # (A) 7.3 k/uL (1.3-7.7); Neutrophils % (A) 82 %; Platelet Count 211 k/uL (150-450); RBC 3.86 m/uL (3.80-5.40); RDW 14.8 % (11.5-15.5); WBC 8.9 k/uL (3.8-10.6)
--- NOTE | 2023-10-08 21:19 | CT ---
EXAMINATION TYPE: CT abdomen pelvis w con CT DLP: 1669.9 mGycm, Automated exposure control for dose reduction was used. DATE OF EXAM: 10/08/2023 8:28 PM COMPARISON: CT abdomen pelvis most recent from 01/07/2021 CLINICAL INDICATION:Female, 83 years old with history of abscess; abscess TECHNIQUE: Axial CT abdomen pelvis w con;Sagittal and coronal reformats were created on a separate w orkstation. Contrast used:100 ml mL of Isovue 300 with IV Contrast, (none if empty) Oral contrast used: without Oral Contrast (none if empty) FINDINGS: LOWER CHEST: Severe atherosclerosis of the coronary arteries. ABDOMEN LIVER: Unremarkable GALLBLADDER AND BILE DUCTS: Gallbladder is surgically absent with mild intrahepatic and extra hepatic biliary dilatation likely physiologic and a postcholecystectomy change. No evidence of choledocholit hiasis. PANCREAS: Unremarkable. SPLEEN: Unremarkable. ADRENAL GLANDS: Unremarkable. KIDNEYS AND URETERS: No evidence of hydronephrosis or renal calculus. The ureters are unremarkable. PELVIS BLADDER: Unremarkable REPRODUCTIVE: The uterus is surgically absent. ABDOMEN & PELVIS STOMACH AND BOWEL: No evidence of bowel obstruction. The appendix is normal. PERITONEUM/RETROPERITONEUM: No evidence of pneumoperitoneum or free fluid. VASCULATURE: No evidence of aortic aneurysm. MUSCULOSKELETAL: No acute osseous abnormalities, grade 1 anterolisthesis of L4 and L5. Scattered oste ophyte formation disc space narrowing and facet arthropathy. LYMPH NODES: No gross evidence for lymphadenopathy. SOFT TISSUE/ABDOMINAL WALL: Fluid collection with gas fluid level within the right perineum next the rectum and vagina measuring 5.3 x 1.7 x 4.3 cm. This is in close proximity to the rectum up to [address] on the right side. The fluid collection abuts the right vagina wall series 201 image 86. Addition ally there is postsurgical changes anterior abdominal wall. IMPRESSION: Right perineum fluid collection/abscess which does not definitively cross into the pelvis and is in c lose proximity to the rectum the vagina measuring up to 5.3 x 1.7 x 4.2 cm with gas.
[2023-10-08] MEDS ORDERED: MORPHINE SULFATE 4 MG/ML SYRINGE IVP STA (22:07)
[2023-10-08] MEDS ORDERED: ACETAMINOPHEN TAB 325 MG TAB PO PRN (22:37)
[2023-10-08] MEDS ORDERED: NALOXONE 0.4 MG/ML 1 ML VIAL IV PRN (22:37)
[2023-10-08] MEDS ORDERED: VANCOMYCIN IV PER PHARMACY 1 EACH MISC MISCELLANE PRN (22:55)
[2023-10-08] MEDS ORDERED: VANCOMYCIN 1,500 MG in SODIUM CHLORIDE 0.9% 500 ML 500 ML IVPB STA (23:01)
[2023-10-08] MEDS ORDERED: DEXTROSE 50% SYRINGE 50 ML IVP PRN ×2 (23:03)
[2023-10-09 00:41] LABS: Glucose,Whole Blood 171 mg/dL (70-110)
[2023-10-09] MEDS: MORPHINE SULFATE 4 MG/ML SYRINGE IV PRN ×3 (01:52→19:28)
[2023-10-09] MEDS ORDERED: ARTIFICIAL TEARS-HYPROMELLOSE DROPS 15 ML BTL BOTH EYES PRN (06:56)
[2023-10-09 07:54] LABS: Glucose,Whole Blood 133 mg/dL (70-110)
[2023-10-09] MEDS: INSULIN ASPART (NovoLOG) 100 UNIT/ML VIAL SQ SCH ×4 (08:20→22:07)
[2023-10-09] MEDS: allopurinoL 300 MG TAB PO SCH (09:55)
[2023-10-09] MEDS: atenoloL 50 MG TAB PO SCH (09:55)
[2023-10-09] MEDS: LORATADINE 10 MG TAB PO SCH (09:55)
[2023-10-09] MEDS: LOSARTAN 50 MG TAB PO SCH (09:55)
[2023-10-09] MEDS: SODIUM CHLORIDE 0.9% 1,000 ML IV SCH (10:19)
--- NOTE | 2023-10-09 11:27 | P.HPIM ---
History of Present Illness H&P Date: 10/09/23 Chief Complaint: Pain in the end of the coccyx spine with serosagous, 10/10 pain level History and physical Patient seen [id number] evaluated. Chief complaint: Patient presented to the emergency room 83 years old white female stated that she had the pain and drainage which is sero-sanguis bloody has been for the last 5 days and with the extensive pain rates as 10 over 10. Patient living alone. History of present illness: 83 years old white female living alone has experience drainage bloody for the last 5 days which progressively extensive associated with the severe pain in the end of the spine and coccyx area with inability to sit or move with extens aminata pain and irritation she described it as 10 over 10. Which pushed her to come to the ER for seeking help. In the ER evaluated and the did a computed tomography scan of the abdomen and pelvis and in the ER rectal exam was very painful and the did computed tomography scan of the abdomen and pelvis which indicating right premium fluid collection/abscess which does not definitely across the pelvis and in close proximately to the rectum and the vagina measuring up to 5.3 x 1.7 X4.2 centimeter with gas, This collection abuts the right vagina wall. With these understanding no other abnormalities and a history of cholecystectomy in the past and hysterectomy total in the past for previous endometriosis surgery done and oxidant. Dr. Soto was caption writer the surgeon and we consulted them for current surgical case to be evaluated and treated meanwhile we held the breakfast until seen by the surgeon meanwhile patient was started with antibiotic in the emergency room physician. Past medical history: #1 hypertension hypertensive heart disease controlled #2 previous history of total hysterectomy and oophorectomy due to the endometriosis #3 degenerative arthritis of the joint #4 cholecystectomy. #5 grade 2 obesity. #6 diabetes mellitus type 2 controlled. #7 gouty arthritis stable ALLERGY unknown Family history: Patient , no children, live alone Nonsmoker Nondrinker As one brother who is sedated from cancer of the lymph and she had one stepsister. Review of system: Neuropsychiatry normal no event Cardiovascular no chest pain no palpitation Pulmonary no asthma and no emphysema Endocrine diabetes mellitus type 2 and obesity Musculoskeletal underlying degenerative arthritis Genitourinary mild incontinent. Otherwise rest of the bullet R non-contributory. Physical exam: Vital signs on admission to the emergency room temperature 99.3 F oral, blood pressure 112/84 with a mean blood pressure 93 Head was normocephalic and atraumatic, pupil is equal reactive no infection of the eye, normal hearing, natural teeth normal his swallowing Neck was supple no JVD no thyromegaly no lymphadenopathy trachea midline Chest no wheezes nor rhonchi's normal breath sounds Heart regular sinus rhythm no arrhythmias Abdomen obese positive bowel sounds no enlargement of spleen or liver no tend erness suprapubic, no flank tenderness Extremities: No edema and positive pulses. Neurologically: No lateralizing sign. Assessment: #1 cyst at the end of the coccyx with drainage and pain with a questionable pyloroduodenal cyst versus abscess with the close proximity to the vagina and the rectum #2 associated pain and discomfort 10 over 10 grade. #3 hypertension is controlled #4 diabetes mellitus controlled. Plan: Laboratory reviewed and stable Surgical case and need the surgical attention Consultation with the Dr. Soto for evaluation and definitive treatment Pain medication with the level of pain 10 over 10. EKG will be ordered in case of surgical intervention Past Medical History Past Medical History: Diabetes Mellitus, GERD/Reflux, Hyperlipidemia, Hypertension Additional Past Medical History / Comment(s): Diabetes controlled with meds, no insulin History of Any Multi-Drug Resistant Organisms: None Reported Past Surgical History: Breast Surgery, Cholecystectomy, Hysterectomy, Orthopedic Surgery Additional Past Surgical History / Comment(s): SHER KNEE ARTHROSCOPY. D&C, HYSTEROSCOPY- uterine cancer with radiation/hysterectomy february 2017. RT BREAST STEREO BENIGN 2008, 2016. SHER CATARACT REMOVAL. Past Anesthesia/Blood Transfusion Reactions: No Reported Reaction Past Psychological History: No Psychological Hx Reported Smoking Status: Never smoker Past Alcohol Use History: None Reported, Rare Past Drug Use History: None Reported - Past Family History Brother(s) Family Medical History: Cancer Mother Family Medical History: Cancer Medications and Allergies Home Medications Medication Instructions Recorded Confirmed Type Atenolol 50 mg PO DAILY 10/08/14 10/08/23 History Atorvastatin [Lipitor] 10 mg PO HS 10/08/14 10/08/23 History sitaGLIPtin PHOS/metFORMIN HCL 1 tab PO W/SUPPER 12/19/20 10/08/23 History [Janumet 50-1,000 mg Tablet] Artificial Tears-Hypromellose 1 drop BOTH EYES QID PRN 10/08/23 10/08/23 History [Artificial Tear Drops] Fexofenadine HCl [[place] Allergy] 180 mg PO DAILY 10/08/23 10/08/23 History Losartan [Cozaar] 50 mg PO DAILY 10/08/23 10/08/23 History allopurinoL [Zyloprim] 300 mg PO DAILY 10/08/23 10/08/23 History Allergies Allergy/AdvReac Type Severity Reaction Status Date / Time No Known Allergies Allergy Verified 10/08/23 22:53 Physical Exam Vitals: Vital Signs Temp Pulse Pulse Resp BP BP Pulse Ox 10/09/23 07:50 98.3 F 68 18 125/69 92 L 10/09/23 01:45 16 10/09/23 00:43 98.5 F 76 18 152/75 92 L 10/08/23 23:07 99.3 F 112/84 10/08/23 22:16 77 18 149/72 94 L 10/08/23 16:32 989.1 F H 75 16 168/77 98 Intake and Output 10/08/23 10/09/23 10/09/23 22:59 06:59 14:59 Other: Voiding Method Toilet Bedside Commode Bedside Commode # Voids 1 Weight 95.254 kg 95.254 kg Results CBC & Chem 7: 10/08/23 19:02 10/08/23 19:02 Labs: Abnormal Lab Results - Last 24 Hours (Table) 10/08/23 10/08/23 10/09/23 Range/Units 19:02 19:02 00:38 Lymphocytes # 0.8 L (1.0-4.8) k/uL Sodium 136 L (137-145) mmol/L Glucose 109 H (74-99) mg/dL POC Glucose (mg/dL) 171 H (70-110) mg/dL 10/09/23 Range/Units 07:53 Lymphocytes # (1.0-4.8) k/uL Sodium (137-145) mmol/L Glucose (74-99) mg/dL POC Glucose (mg/dL) 133 H (70-110) mg/dL Microbiology - Last 24 Hours (Table) 10/08/23 19:02 Gram Stain - Preliminary Buttock Thrombosis Risk Factor Assmnt - Choose All That Apply Any of the Below Risk Factors Present?: Yes Each Factor Represents 1 point: Obesity (BMI >25) Other Risk Factors: Yes Each Risk Factor Represents 3 Points: Age 75 years or older Other congenital or acquired thrombophilia - If yes, enter type in comment: No Thrombosis Risk Factor Assessment Total Risk Factor Score: 4 Thrombosis Risk Factor Assessment Level: Moderate Risk
[2023-10-09] MEDS: VANCOMYCIN 1,500 MG in SODIUM CHLORIDE 0.9% 500 ML 500 ML IVPB SCH (12:05)
[2023-10-09 12:37] LABS: Glucose,Whole Blood 129 mg/dL (70-110)
--- NOTE | 2023-10-09 13:54 | P.GSCN ---
History of Present Illness Consult date: 10/09/23 History of present illness: The patient is an 83-year-old female with a several day history of perineal pain and drainage. Patient states for the past 2-3 days she has developed increasing perineal pain which subsequently resulted in drainage. She denies any prior episodes such as this. No fevers or chills. No shortness of breath or chest pain. No abdominal pain nausea or vomiting. Admits to flatus and bowel movements. Voiding without issue. No melena or hematochezia. Upon presentation of a [place] port on the emergency department a CT abdomen and pelvis was obtained which showed evidence of a right-sided perineal abscess. Review of Systems Negative except for as stated above Past Medical History Past Medical History: Diabetes Mellitus, GERD/Reflux, Hyperlipidemia, Hypertension Additional Past Medical History / Comment(s): Diabetes controlled with meds, no insulin History of Any Multi-Drug Resistant Organisms: None Reported Past Surgical History: Breast Surgery, Cholecystectomy, Hysterectomy, Orthopedic Surgery Additional Past Surgical History / Comment(s): SHER KNEE ARTHROSCOPY. D&C, HYSTEROSCOPY- uterine cancer with radiation/hysterectomy february 2017. RT BREAST STEREO BENIGN 2008, 2016. SHER CATARACT REMOVAL. Past Anesthesia/Blood Transfusion Reactions: No Reported Reaction Past Psychological History: No Psychological Hx Reported Smoking Status: Never smoker Past Alcohol Use History: None Reported, Rare Past Drug Use History: None Reported - Past Family History Brother(s) Family Medical History: Cancer Mother Family Medical History: Cancer Medications and Allergies Home Medications Medication Instructions Recorded Confirmed Type Atenolol 50 mg PO DAILY 10/08/14 10/08/23 History Atorvastatin [Lipitor] 10 mg PO HS 10/08/14 10/08/23 History sitaGLIPtin PHOS/metFORMIN HCL 1 tab PO W/SUPPER 12/19/20 10/08/23 History [Janumet 50-1,000 mg Tablet] Artificial Tears-Hypromellose 1 drop BOTH EYES QID PRN 10/08/23 10/08/23 History [Artificial Tear Drops] Fexofenadine HCl [[place] Allergy] 180 mg PO DAILY 10/08/23 10/08/23 History Losartan [Cozaar] 50 mg PO DAILY 10/08/23 10/08/23 History allopurinoL [Zyloprim] 300 mg PO DAILY 10/08/23 10/08/23 History Allergies Allergy/AdvReac Type Severity Reaction Status Date / Time No Known Allergies Allergy Verified 10/08/23 22:53 Surgical - Exam Vital Signs Temp Pulse Resp BP Pulse Ox 989.1 F H 75 16 168/77 98 10/08/23 16:32 10/08/23 16:32 10/08/23 16:32 10/08/23 16:32 10/08/23 16:32 Gen: AxO, NAD Pulm: non-labored respirations Abd: soft, non-tender, minimally distended, no guarding/rebound/rigidity Rectal: right perineal abscess seen with spontaneous sanguinopurulent discharge. Tender to palpation. No crepitus appreciated. Mild induration appreciated. No fluctuence seen Extrem: no edema seen Results - Labs 10/08/23 19:02 10/08/23 19:02 Abnormal Lab Results - Last 24 Hours (Table) 10/08/23 10/08/23 10/09/23 Range/Units 19:02 19:02 00:38 Lymphocytes # 0.8 L (1.0-4.8) k/uL Sodium 136 L (137-145) mmol/L Glucose 109 H (74-99) mg/dL POC Glucose (mg/dL) 171 H (70-110) mg/dL 10/09/23 10/09/23 Range/Units 07:53 12:35 Lymphocytes # (1.0-4.8) k/uL Sodium (137-145) mmol/L Glucose (74-99) mg/dL POC Glucose (mg/dL) 133 H 129 H (70-110) mg/dL Microbiology - Last 24 Hours (Table) 10/08/23 19:02 Gram Stain - Preliminary Buttock Diabetes panel 10/08/23 Range/Units 19:02 Sodium 136 L (137-145) mmol/L Potassium 4.8 (3.5-5.1) mmol/L Chloride 99 (98-107) mmol/L Carbon Dioxide 27 (22-30) mmol/L BUN 17 (7-17) mg/dL Creatinine 0.76 (0.52-1.04) mg/dL Glucose 109 H (74-99) mg/dL Calcium 10.1 (8.4-10.2) mg/dL AST 24 (14-36) U/L ALT 13 (4-34) U/L Alkaline Phosphatase 95 (38-126) U/L Total Protein 6.5 (6.3-8.2) g/dL Albumin 3.7 (3.5-5.0) g/dL Calcium panel 10/08/23 Range/Units 19:02 Calcium 10.1 (8.4-10.2) mg/dL Albumin 3.7 (3.5-5.0) g/dL Pituitary panel 10/08/23 Range/Units 19:02 Sodium 136 L (137-145) mmol/L Potassium 4.8 (3.5-5.1) mmol/L Chloride 99 (98-107) mmol/L Carbon Dioxide 27 (22-30) mmol/L BUN 17 (7-17) mg/dL Creatinine 0.76 (0.52-1.04) mg/dL Glucose 109 H (74-99) mg/dL Calcium 10.1 (8.4-10.2) mg/dL Adrenal panel 10/08/23 Range/Units 19:02 Sodium 136 L (137-145) mmol/L Potassium 4.8 (3.5-5.1) mmol/L Chloride 99 (98-107) mmol/L Carbon Dioxide 27 (22-30) mmol/L BUN 17 (7-17) mg/dL Creatinine 0.76 (0.52-1.04) mg/dL Glucose 109 H (74-99) mg/dL Calcium 10.1 (8.4-10.2) mg/dL Total Bilirubin 0.8 (0.2-1.3) mg/dL AST 24 (14-36) U/L ALT 13 (4-34) U/L Alkaline Phosphatase 95 (38-126) U/L Total Protein 6.5 (6.3-8.2) g/dL Albumin 3.7 (3.5-5.0) g/dL Assessment and Plan Assessment: Patient is an 83-year-old female who presents with perineal abscess, spontaneously draining Plan: -Diet as tolerated -IV abx -IVF hydration -PRN pain control -Abscess with spontaneous drainage seen; no current indication for Incision and Drainage -Care per primary Gil Gottlieb MD General Surgery
[2023-10-09 17:08] LABS: Glucose,Whole Blood 121 mg/dL (70-110)
[2023-10-09 19:32] LABS: Glucose,Whole Blood 192 mg/dL (70-110)
[2023-10-09] MEDS: ATORVASTATIN 10 MG TAB PO SCH (22:07)
[2023-10-10] MEDS: VANCOMYCIN 1,500 MG in SODIUM CHLORIDE 0.9% 500 ML 500 ML IVPB SCH ×2 (03:38→20:44)
[2023-10-10 07:45] LABS: Glucose,Whole Blood 179 mg/dL (70-110)
[2023-10-10 08:19] LABS: African American GFR (CKD) 83 (>60 ml/min/1.73 sqM); Anion Gap 13 mmol/L; Blood Urea Nitrogen 15 mg/dL (7-17); Calcium 9.1 mg/dL (8.4-10.2); Carbon Dioxide 22 mmol/L (22-30); Chloride 101 mmol/L (98-107); Glucose 148 mg/dL (74-99); Non-African American GFR(CKD) 72 (>60 ml/min/1.73 sqM); Sodium 136 mmol/L (137-145)
[2023-10-10 08:21] LABS: African American GFR (CKD) 85 (>60 ml/min/1.73 sqM); Non-African American GFR(CKD) 74 (>60 ml/min/1.73 sqM)
[2023-10-10 08:24] LABS: Magnesium 1.5 mg/dL (1.6-2.3); Potassium 4.6 mmol/L (3.5-5.1)
[2023-10-10 08:47] LABS: Basophils # (A) 0.1 k/uL (0-0.2); Basophils % (A) 1 %; Eosinophils # (A) 0.2 k/uL (0-0.7); Eosinophils % (A) 2 %; HCT 35.8 % (34.0-46.0); HGB 11.5 gm/dL (11.4-16.0); Hypochromasia Moderate; Lymphocytes % (A) 10 %; MCH 32.6 pg (25.0-35.0); MCV 101.8 fL (80.0-100.0); Macrocytosis Slight; Mean Platelet Volume 9.3; Monocytes # (A) 0.8 k/uL (0-1.0); Monocytes % (A) 8 %; Neutrophils # (A) 7.7 k/uL (1.3-7.7); Neutrophils % (A) 78 %; Platelet Count 160 k/uL (150-450); RBC 3.52 m/uL (3.80-5.40); RDW 14.6 % (11.5-15.5); WBC 9.8 k/uL (3.8-10.6)
[2023-10-10] MEDS: atenoloL 50 MG TAB PO SCH (09:09)
[2023-10-10] MEDS: LOSARTAN 50 MG TAB PO SCH (09:09)
[2023-10-10] MEDS: INSULIN ASPART (NovoLOG) 100 UNIT/ML VIAL SQ SCH ×4 (09:09→20:44)
[2023-10-10] MEDS: allopurinoL 300 MG TAB PO SCH (09:10)
[2023-10-10] MEDS: LORATADINE 10 MG TAB PO SCH (09:10)
[2023-10-10 12:00] LABS: Glucose,Whole Blood 126 mg/dL (70-110)
--- NOTE | 2023-10-10 12:06 | P.PN ---
Subjective Progress Note Date: 10/10/23 Principal diagnosis: Buttock abscess Patient still having some drainage from the abscess site. States it feels better. No history of similar events. CAT scan reviewed. Objective - Vital Signs Vital signs: Vital Signs Temp 98.2 F 10/10/23 08:00 Pulse 67 10/10/23 08:00 Resp 17 10/10/23 08:00 BP 144/74 10/10/23 08:00 Pulse Ox 93 L 10/10/23 08:00 FiO2 Intake & Output 10/09/23 10/10/23 10/10/23 18:59 06:59 18:59 Intake Total 400 540 Balance 400 540 Intake: Oral 400 540 Other: Voiding Method Bedside Commode Bedside Commode Toilet # Voids 1 1 2 # Bowel Movements 1 - Exam Perineal evaluation reveals an abscess in the right superior gluteal cleft region, induration and erythema noted, fluctuance present, area of spontaneous drainage only a few millimeters in size - Labs CBC & Chem 7: 10/10/23 07:02 10/10/23 07:02 Labs: Abnormal Lab Results - Last 24 Hours (Table) 10/09/23 10/09/23 10/09/23 Range/Units 12:35 17:07 19:28 RBC (3.80-5.40) m/uL MCV (80.0-100.0) fL Sodium (137-145) mmol/L Glucose (74-99) mg/dL POC Glucose (mg/dL) 129 H 121 H 192 H (70-110) mg/dL Magnesium (1.6-2.3) mg/dL 10/10/23 10/10/23 10/10/23 Range/Units 07:02 07:02 07:07 RBC 3.52 L (3.80-5.40) m/uL MCV 101.8 H (80.0-100.0) fL Sodium 136 L (137-145) mmol/L Glucose 148 H (74-99) mg/dL POC Glucose (mg/dL) 179 H (70-110) mg/dL Magnesium 1.5 L (1.6-2.3) mg/dL 10/10/23 Range/Units 11:50 RBC (3.80-5.40) m/uL MCV (80.0-100.0) fL Sodium (137-145) mmol/L Glucose (74-99) mg/dL POC Glucose (mg/dL) 126 H (70-110) mg/dL Magnesium (1.6-2.3) mg/dL Microbiology - Last 24 Hours (Table) 10/08/23 22:45 Blood Culture - Preliminary Blood 10/08/23 23:00 Blood Culture - Preliminary Blood 10/08/23 19:02 Gram Stain - Preliminary Buttock Assessment and Plan (1) Perineal abscess Narrative/Plan: 83-year-old female with abscess perineal region. On exam the patient has a small wound with erythema and fluctuance in the right buttock region. CAT scan shows this to be extending down to the perirectal tissues however. There is improvement with spontaneous drainage however the site of spontaneous drainage is quite small and I worry that this is not adequately draining the infection. Options discussed with patient. We'll proceed with incision and drainage in the operative room tomorrow. Current Visit: Yes Status: Acute Code(s): L02.215 - CUTANEOUS ABSCESS OF PERINEUM SNOMED Code(s): 77455549
[2023-10-10] MEDS: HYDROcodone/APAP 5-325MG 1 EACH TAB PO PRN (13:51)
--- NOTE | 2023-10-10 14:06 | P.PN ---
Subjective Progress Note Date: 10/10/23 Principal diagnosis: Diagnoses: #1 perineal abscess on the right side of the gluteal #2 pain in the perineal area uncontrolled with low grade temperature on admission #3 diabetes mellitus controlled #4 hypertension controlled #5 history of gouty arthropathy. Present at this time #6 degenerative arthritis of the joint #7 obesity stage II Progress note Date of service 10/[address] smiley. Patient seen and evaluated [id number] Pain level at this time around 5 and she does not need morphine IV will switch her as she is able to eat and swallow Lortab 5/325 every 6 hour when necessary added to Tylenol when necessary. Patient still had the pain and she is unable to sit comfortably with the pain in the perineal area and the buttocks area. Computed tomography scan was done on admission reviewed by Dr. Connell today and decided he will take care of to surgery tomorrow for incision and drainage. Patient on vancomycin at this time. Vital sign temperature 98.2 F oral, pulse 62 bpm and regular sinus. Respiratory rate 17/m nonlabored, blood pressure 149/76 with a mean 100 with the associated pain, pulse ox 94 on room air. HEENT was negative and head was normocephalic and atraumatic Chest was clear no wheezes no rhonchi's Heart regular sinus rhythm Abdomen soft obese positive bowel sounds extremities no edema and positive pulses Neurologically stable Psychiatrically stable Assessment: Patient stable medically for surgical intervention There is EKG indicating normal sinus rhythm left axis deviation, right bundle branch block no acute changes. No chest pain. Laboratory: WBC 9.8, hemoglobin 11.5. Chemistry sodium 136 and potassium 4.6 BUN 15 creatinine 0.76, estimated EGFR 74 POC glucose 126 stable controlled and she had calcium 9.1 magnesium will be supplemented with protocol. Diabetes mellitus type 2 controlled Hypertension is controlled mild hypomagnesemia will be supplemented Patient will be taken tomorrow to surgery for incision and drainage with the underlying possibility of peritoneal abscess versus. pilondial cyst symptomatic with drainage with small hole. Plan: Surgical case and I agree with the surgeon decision. Objective - Vital Signs Vital signs: Vital Signs Temp 98.2 F 10/10/23 12:56 Pulse 62 10/10/23 12:56 Resp 17 10/10/23 12:56 BP 149/76 10/10/23 12:56 Pulse Ox 94 L 10/10/23 12:56 FiO2 Intake & Output 10/09/23 10/10/23 10/10/23 18:59 06:59 18:59 Intake Total 400 1020 Balance 400 1020 Intake: Oral 400 1020 Other: Voiding Method Bedside Commode Bedside Commode Toilet # Voids 1 1 1 # Bowel Movements 1 - Labs CBC & Chem 7: 10/10/23 07:02 10/10/23 07:02 Labs: Abnormal Lab Results - Last 24 Hours (Table) 10/09/23 10/09/23 10/10/23 Range/Units 17:07 19:28 07:02 RBC 3.52 L (3.80-5.40) m/uL MCV 101.8 H (80.0-100.0) fL Sodium (137-145) mmol/L Glucose (74-99) mg/dL POC Glucose (mg/dL) 121 H 192 H (70-110) mg/dL Magnesium (1.6-2.3) mg/dL 10/10/23 10/10/23 10/10/23 Range/Units 07:02 07:07 11:50 RBC (3.80-5.40) m/uL MCV (80.0-100.0) fL Sodium 136 L (137-145) mmol/L Glucose 148 H (74-99) mg/dL POC Glucose (mg/dL) 179 H 126 H (70-110) mg/dL Magnesium 1.5 L (1.6-2.3) mg/dL Microbiology - Last 24 Hours (Table) 10/08/23 19:02 Gram Stain - Preliminary Buttock Wound Culture - Preliminary Gram Neg Bacilli 10/08/23 22:45 Blood Culture - Preliminary Blood 10/08/23 23:00 Blood Culture - Preliminary Blood
[2023-10-10] MEDS ORDERED: MAGNESIUM SULFATE-D5W PMX 1 GM in DEXTROSE/WATER 1 100ML.BAG IVPB ONE (15:00)
[2023-10-10] MEDS: SODIUM CHLORIDE 0.9% 1,000 ML IV SCH (15:25)
[2023-10-10 17:17] LABS: Glucose,Whole Blood 132 mg/dL (70-110)
[2023-10-10 20:12] LABS: Glucose,Whole Blood 135 mg/dL (70-110)
[2023-10-10] MEDS: ATORVASTATIN 10 MG TAB PO SCH (20:44)
[2023-10-11 07:30] LABS: Glucose,Whole Blood 151 mg/dL (70-110)
[2023-10-11] MEDS ORDERED: LACTATED RINGERS 1,000 ML IV ONE (08:10)
[2023-10-11] MEDS ORDERED: PROPOFOL 10 MG/ML 20 ML VIAL IV ONE (08:10)
[2023-10-11] MEDS ORDERED: fentaNYL (PF) 50 MCG/ML 2 ML AMP ONE (08:10)
[2023-10-11] MEDS ORDERED: SUCCINYLCHOLINE CHLORIDE 200 MG/10 ML VIAL IV ONE (08:10)
--- NOTE | 2023-10-11 09:07 | P.OP ---
Date of Procedure: 10/11/23 Procedure(s) Performed: PREOPERATIVE DIAGNOSIS: Right buttock abscess POSTOPERATIVE DIAGNOSIS: Same PROCEDURE: Incision and drainage complex right buttock abscess SURGEON: Ko EBL: 10 mL ANESTHESIA: Gen. COMPLICATIONS: None OPERATIVE PROCEDURE: Patient placed in the prone jackknife position after general anesthesia achieved. Patient had a open small wound draining pus at the upper aspect of the gluteal cleft on the right-hand side. An incision was made excising the necrotic skin here. Entrance into a large abscess cavity took place. The abscess extended inferiorly towards a small skin opening at 12:00 perianal location. The abscess also extended to the left buttock. Through the perianal skin opening a Rocio drain was placed and sutured back to itself from the original upper wound site. A second stab incision was made on the skin overlying the left buttock abscess and a second Rocio drain was passed in a similar fashion. Cultures were taken. The area was irrigated thoroughly. The wound was then packed with iodoform gauze. Sterile dressings applied. DISPOSITION: Stable to recovery room
[2023-10-11] MEDS: INSULIN ASPART (NovoLOG) 100 UNIT/ML VIAL SQ SCH ×4 (10:19→21:18)
[2023-10-11] MEDS: LORATADINE 10 MG TAB PO SCH (10:26)
[2023-10-11] MEDS: atenoloL 50 MG TAB PO SCH (10:26)
[2023-10-11] MEDS: LACTULOSE 20 GM/30 ML CUP PO SCH ×2 (10:26→21:18)
[2023-10-11] MEDS: LOSARTAN 50 MG TAB PO SCH (10:26)
[2023-10-11] MEDS: HYDROcodone/APAP 5-325MG 1 EACH TAB PO PRN (10:26)
[2023-10-11] MEDS: allopurinoL 300 MG TAB PO SCH (10:26)
[2023-10-11 10:57] LABS: African American GFR (CKD) 89 (>60 ml/min/1.73 sqM); Non-African American GFR(CKD) 77 (>60 ml/min/1.73 sqM)
[2023-10-11] MEDS ORDERED: VANCOMYCIN TROUGH DUE 1 EACH MISC MISCELLANE ONE (11:00)
[2023-10-11] MEDS: VANCOMYCIN 1,500 MG in SODIUM CHLORIDE 0.9% 500 ML 500 ML IVPB SCH (12:01)
[2023-10-11 12:10] LABS: Glucose,Whole Blood 129 mg/dL (70-110)
--- NOTE | 2023-10-11 15:13 | P.PN ---
Subjective Progress Note Date: 10/11/23 (Perineal abscess, staph and E. coli) Progress note Date of service 10/11/[id number] year Dictation by Dr. Lr. Mrs. Michelle Nye 83 years old white female she had severe pain in the perineal area taken to the operative room this morning and cleaned up the abscess which was extended from the right side to the left side on the perineal area. With deep presumptive wound culture E. coli and staph aureus we don't have culture sensitivity yet. Patient covered with vancomycin however we will add Rocephin and consult infectious disease in a.m. because of the new year. Patient seen and examined [id number] Vital sign in a.m. temperature 97.8, pulse is 77, respiratory rate 16, pressure 147/58 and pulse ox on room air 93% without shortness of breath Patient is conscious alert oriented 3 and able to ambulate post surgery however she had urinary incontinence. Blood sugar fairly well controlled 129. Covered with insulin to scale Vancomycin trough level 13.7 which is therapeutic level Conscious alert oriented 3 HEENT negative no changes Neck was supple no JVD no thyromegaly no lymphadenopathy. Chest is clear no wheezes no rhonchi's Heart regular sinus rhythm Abdomen soft obese positive bowel sounds Extremities no edema. Also pulses. Genitourinary incontinent Neurologically stable Psychiatry stable. Assessment: Status post incision and drainage of abscess complex right perineum and extension to the left perineum. Presumptive staph and E. coli. Hypertension controlled Diabetes is controlled Obesity class II Plan consult Dr. Guaman infectious disease for evaluation and treatment. With the underlying presence of presumptive staph and E. coli. Patient currently on vancomycin and I ordered now Rocephin with the complex infection. Objective - Vital Signs Vital signs: Vital Signs Temp 98.5 F 10/11/23 10:20 Pulse 67 10/11/23 12:20 Resp 18 10/11/23 10:20 BP 159/79 10/11/23 12:20 Pulse Ox 95 10/11/23 12:20 FiO2 Intake & Output 10/10/23 10/11/23 10/11/23 18:59 06:59 18:59 Intake Total 1120 900 Output Total 5 Balance 1120 895 Intake: IV 900 Intake, IV Titration 100 Amount Magnesium Sulfate-D5w Pmx 100 1 gm In Dextrose/Water 1 100ml.bag @ 100 mls/hr IVPB ONCE ONE Rx#: [id number] Oral 1020 Output: Estimated Blood Loss 5 Other: Voiding Method Toilet Toilet Toilet # Voids 1 1 # Bowel Movements 1 1 - Labs CBC & Chem 7: 10/10/23 07:02 10/11/23 10:19 Labs: Abnormal Lab Results - Last 24 Hours (Table) 10/10/23 10/10/23 10/11/23 Range/Units 17:15 20:11 07:14 POC Glucose (mg/dL) 132 H 135 H 151 H (70-110) mg/dL 10/11/23 Range/Units 11:55 POC Glucose (mg/dL) 129 H (70-110) mg/dL Microbiology - Last 24 Hours (Table) 10/08/23 19:02 Gram Stain - Preliminary Buttock Wound Culture - Preliminary Escherichia coli Presumptive Staph aureus 10/08/23 22:45 Blood Culture - Preliminary Blood 10/08/23 23:00 Blood Culture - Preliminary Blood
[2023-10-11] MEDS: SODIUM CHLORIDE 0.9% 1,000 ML IV SCH (17:28)
[2023-10-11 17:30] LABS: Glucose,Whole Blood 153 mg/dL (70-110)
[2023-10-11] MEDS: AMPICILLIN-SULBACTAM 3 GM in SODIUM CHLORIDE 0.9% 100 ML IVPB SCH ×2 (17:58→23:48)
[2023-10-11 20:24] LABS: Glucose,Whole Blood 169 mg/dL (70-110)
[2023-10-11] MEDS: ATORVASTATIN 10 MG TAB PO SCH (21:18)
--- NOTE | 2023-10-11 21:50 | P.CONS ---
History of Present Illness - Reason for Consult Consult date: 10/11/23 Perianal abscess Requesting physician: Jorge Luis Lr - Chief Complaint Perirectal pain x few days - History of Present Illness Patient is a 83-year-old female with a past medical history of diabetes mellitus hypertension hyperlipidemia reflux patient presented to hospital on 10/08/2023 concerning for pain swelling to the gluteal area that has been going on for about a month and the patient are having some drainage 3 days before presentation to the hospital patient on arrival to the ER he did have a CT of abdominal pelvis which shows right perineum fluid collection abscess measuring up to 5.3 X1.7X 4.2 cm with gas patient has been evaluated by general surgery she was taken to the OR this morning noticed to have right gluteal abscess status post drainage of this abscess and placement of a Rocio drain patient did have some cultures obtained on admission to the hospital grew MSSA and E. coli patient is currently on a combination of Rocephin and vancomycin infectious disease was consulted for management of antibiotic therapy, patient denies having any fever did have some chills has been complaining of pain to the gluteal area to be mostly sharp intensity moderate to severe without any radiation and did have some drainage as mentioned earlier patient denies having any nausea vomiting no chest pain shortness of breath or cough no abdominal pain no diarrhea or constipation Review of Systems Positive point and negatives has been mentioned in the HPI, complete review of systems was performed and all other systems are negative Past Medical History Past Medical History: Diabetes Mellitus, GERD/Reflux, Hyperlipidemia, Hypertension Additional Past Medical History / Comment(s): Diabetes controlled with meds, no insulin History of Any Multi-Drug Resistant Organisms: None Reported Past Surgical History: Breast Surgery, Cholecystectomy, Hysterectomy, Orthopedic Surgery Additional Past Surgical History / Comment(s): SHER KNEE ARTHROSCOPY. D&C, HYSTEROSCOPY- uterine cancer with radiation/hysterectomy february 2017. RT BREAST STEREO BENIGN 2008, 2016. SHER CATARACT REMOVAL. Past Anesthesia/Blood Transfusion Reactions: No Reported Reaction Past Psychological History: No Psychological Hx Reported Smoking Status: Never smoker Past Alcohol Use History: None Reported, Rare Past Drug Use History: None Reported - Past Family History Brother(s) Family Medical History: Cancer Mother Family Medical History: Cancer Medications and Allergies Home Medications Medication Instructions Recorded Confirmed Type Atenolol 50 mg PO DAILY 10/08/14 10/08/23 History Atorvastatin [Lipitor] 10 mg PO HS 10/08/14 10/08/23 History Artificial Tears-Hypromellose 1 drop BOTH EYES QID PRN 10/08/23 10/08/23 History [Artificial Tear Drops] Fexofenadine HCl [[place] Allergy] 180 mg PO DAILY 10/08/23 10/08/23 History Losartan [Cozaar] 50 mg PO DAILY 10/08/23 10/08/23 History allopurinoL [Zyloprim] 300 mg PO DAILY 10/08/23 10/08/23 History Amoxic-Pot Clav 875-125Mg 1 tab PO BID 10 Days #20 tab 10/14/23 Rx [Augmentin 875-125] Acetaminophen Tab [Tylenol] 650 mg PO Q6HR PRN tab 10/16/23 Rx Amoxic-Pot Clav 875-125Mg 1 each PO Q12HR 7 Days #14 tab 10/16/23 Rx [Augmentin 875-125] Lactulose [Cephulac] 20 gm PO BID ml 10/16/23 Rx Linagliptin [Tradjenta] 5 mg PO W/SUPPER tab 10/16/23 Rx metFORMIN HCL [Glucophage] 1,000 mg PO W/SUPPER tab 10/16/23 Rx Allergies Allergy/AdvReac Type Severity Reaction Status Date / Time No Known Allergies Allergy Verified 10/08/23 22:53 Physical Exam Vitals: Vital Signs Temp Pulse Pulse Resp BP Pulse Ox 10/11/23 20:00 98.4 F 67 19 135/71 93 L 10/11/23 12:20 67 159/79 95 10/11/23 11:50 68 146/75 91 L 10/11/23 11:20 67 151/76 96 10/11/23 11:05 66 154/78 96 10/11/23 10:50 66 156/74 94 L 10/11/23 10:35 67 179/79 95 10/11/23 10:20 98.5 F 73 18 164/74 92 L 10/11/23 09:50 62 18 147/60 96 10/11/23 09:35 64 18 137/67 95 10/11/23 09:20 72 18 121/60 95 10/11/23 09:05 97.8 F 77 16 147/58 93 L 10/11/23 07:30 98.4 F 71 16 155/66 94 L 10/11/23 01:51 98.6 F 71 17 151/72 93 L Intake and Output 10/11/23 10/11/23 10/11/23 06:59 14:59 22:59 Intake Total 900 780 Output Total 5 Balance 895 780 Intake: IV 900 Oral 780 Output: Estimated Blood Loss 5 Other: Voiding Method Toilet # Voids 3 GENERAL DESCRIPTION: Elderly female lying in bed, no distress. No tachypnea or accessory muscle of respiration use. HEENT: Shows Pallor , no scleral icterus. Oral mucous membrane is dry. No pharyngeal erythema or thrush NECK: Trachea central, no thyromegaly. LUNGS: Unlabored breathing. Clear to auscultation anteriorly. No wheeze or crackle. HEART: S1, S2, regular rate and rhythm. No loud murmur ABDOMEN: Soft, no tenderness , guarding or rigidity, no organomegaly, perirectal area did have small incision no significant induration or foul-smelling drainage EXTREMITIES: No edema of feet. SKIN: No rash, no masses palpable. NEUROLOGICAL: The patient is awake, alert, oriented x3, mood and affect normal. Results CBC & Chem 7: 10/13/23 05:54 10/13/23 05:54 Labs: Abnormal Lab Results - Last 24 Hours (Table) 10/11/23 10/11/23 10/11/23 Range/Units 07:14 11:55 17:27 POC Glucose (mg/dL) 151 H 129 H 153 H (70-110) mg/dL 10/11/23 Range/Units 20:23 POC Glucose (mg/dL) 169 H (70-110) mg/dL Microbiology - Last 24 Hours (Table) 10/11/23 09:00 Gram Stain - Preliminary Buttock 10/08/23 19:02 Gram Stain - Preliminary Buttock Wound Culture - Preliminary Escherichia coli Presumptive Staph aureus 10/08/23 22:45 Blood Culture - Preliminary Blood 10/08/23 23:00 Blood Culture - Preliminary Blood Assessment and Plan (1) MSSA (methicillin susceptible Staphylococcus aureus) infection Status: Acute Code(s): A49.01 - METHICILLIN SUSCEP STAPH INFECTION, UNSP SITE SNOMED Code(s): 594862407 (2) Perineal abscess Status: Acute Code(s): L02.215 - CUTANEOUS ABSCESS OF PERINEUM SNOMED Code(s): 54178095 Plan: 1patient was in the hospital with abscess to the perineal area with spontaneous drainage and subsequently was taken to the OR with further drainage of this abscess did not mention any communication with the rectum or vaginal area as per operative report, with initial culture growing MSSA and E. coli were culture done this morning are currently pending 2-we will discontinue vancomycin and Rocephin 3-start the patient on Unasyn 3 g every 6 hours while waiting for the deep or cu lture to be finalized to determine her discharge antibiotics We will follow on clinical condition and cultures to further adjust medication if needed Thank you for this consultation we will follow the patient along with you Dictation was produced using [employer] dictation software. please excuse any gr ammatical, word or spelling errors. Time with Patient: Greater than 30
[2023-10-12] MEDS: AMPICILLIN-SULBACTAM 3 GM in SODIUM CHLORIDE 0.9% 100 ML IVPB SCH ×4 (05:18→23:39)
[2023-10-12 06:37] LABS: African American GFR (CKD) >90 (>60 ml/min/1.73 sqM); Non-African American GFR(CKD) 79 (>60 ml/min/1.73 sqM)
[2023-10-12 07:32] LABS: Glucose,Whole Blood 162 mg/dL (70-110)
[2023-10-12] MEDS: atenoloL 50 MG TAB PO SCH (08:43)
[2023-10-12] MEDS: LACTULOSE 20 GM/30 ML CUP PO SCH ×2 (08:43→19:42)
[2023-10-12] MEDS: INSULIN ASPART (NovoLOG) 100 UNIT/ML VIAL SQ SCH ×4 (08:43→20:50)
[2023-10-12] MEDS: allopurinoL 300 MG TAB PO SCH (08:43)
[2023-10-12] MEDS: LOSARTAN 50 MG TAB PO SCH (08:43)
[2023-10-12] MEDS: LORATADINE 10 MG TAB PO SCH (08:43)
[2023-10-12 12:01] LABS: Glucose,Whole Blood 127 mg/dL (70-110)
[2023-10-12] MEDS: SODIUM CHLORIDE 0.9% 1,000 ML IV SCH ×2 (13:13→23:39)
[2023-10-12] MEDS: HYDROcodone/APAP 5-325MG 1 EACH TAB PO PRN (14:00)
--- NOTE | 2023-10-12 14:43 | P.PN ---
Subjective Progress Note Date: 10/12/23 Principal diagnosis: Reason for follow-up is perianal/right gluteal abscess Patient is a 83-year-old female with a past medical history of diabetes mellitus hypertension hyperlipidemia reflux patient presented to hospital on 10/08/2023 concerning for pain swelling to the gluteal area, patient been diagnosed with a right groin abscess status post surgical drainage initial culture grew MSSA and E. coli On today's evaluation that is 10/12/2023, the patient remains to be afebrile the patient is breathing comfortably on room air , the patient denies any chest pain shortness of breath denies any cough or sputum production, the patient denies having any nausea no vomiting no abdominal pain did have some discomfort to the perirectal area Patient did have white count of 9.8 as of 10/10/2023 creatinine 0.72, wound culture growing anaerobic Gram negative and gram-positive Objective - Vital Signs Vital signs: Vital Signs Temp 98.3 F 10/12/23 11:40 Pulse 68 10/12/23 11:40 Resp 16 10/12/23 11:40 BP 146/73 10/12/23 11:40 Pulse Ox 96 10/12/23 11:40 FiO2 Intake & Output 10/11/23 10/12/23 10/12/23 18:59 06:59 18:59 Intake Total 1680 320 Output Total 5 Balance 1675 320 Intake: IV 900 Intake, IV Titration 200 Amount Ampicillin-Sulbactam 3 gm 200 In Sodium Chloride 0.9% 100 ml @ 200 mls/hr IVPB Q6HR [facility] Rx#:[id number] Oral 780 120 Output: Estimated Blood Loss 5 Other: Voiding Method Toilet Toilet Toilet # Voids 3 - Exam GENERAL DESCRIPTION: An elderly female up in the chair in no distress RESPIRATORY SYSTEM: Unlabored breathing , decreased breath sounds at bases HEART: S1 S2 regular rate and rhythm , ABDOMEN: Soft , no tenderness EXTREMITIES: No edema feet - Labs CBC & Chem 7: 10/10/23 07:02 10/12/23 05:35 Labs: Abnormal Lab Results - Last 24 Hours (Table) 10/11/23 10/11/23 10/12/23 Range/Units 17:27 20:23 07:26 POC Glucose (mg/dL) 153 H 169 H 162 H (70-110) mg/dL 10/12/23 Range/Units 11:43 POC Glucose (mg/dL) 127 H (70-110) mg/dL Microbiology - Last 24 Hours (Table) 10/08/23 23:00 Anaerobic Culture - Preliminary Buttock Anaerobic Gram Positive Cocci Anaerobic Gm Negative Bacilli 10/08/23 19:02 Gram Stain - Final Buttock Wound Culture - Final Escherichia coli Staphylococcus aureus 10/08/23 22:45 Blood Culture - Preliminary Blood 10/08/23 23:00 Blood Culture - Preliminary Blood 10/11/23 09:00 Gram Stain - Preliminary Buttock Assessment and Plan (1) MSSA (methicillin susceptible Staphylococcus aureus) infection Current Visit: Yes Status: Acute Code(s): A49.01 - METHICILLIN SUSCEP STAPH INFECTION, UNSP SITE SNOMED Code(s): 123847668 (2) Perineal abscess Current Visit: Yes Status: Acute Code(s): L02.215 - CUTANEOUS ABSCESS OF PERINEUM SNOMED Code(s): 78606135 Plan: 1patient was in the hospital with abscess to the perineal area with spontaneous drainage and subsequently was taken to the OR with further drainage of this abscess did not mention any communication with the rectum or vaginal area as per operative report, with initial culture growing MSSA and E. coli were culture done this morning are currently pending 2we will keep the patient on Unasyn 3 g every 6 hours waiting for the deep or cultures to be finalized to determine her discharge antibiotics question concern answered Dictation was produced using [employer] dictation software. please excuse any grammatical, word or spelling errors.
[2023-10-12 17:18] LABS: Glucose,Whole Blood 136 mg/dL (70-110)
--- NOTE | 2023-10-12 18:43 | P.PN ---
Subjective Progress Note Date: 10/12/23 (Perineal abscess) Progress note Date of service 10/12/[address] Lr Patient seen [id number] evaluated. Patient seen by Dr. Guaman infectious disease and adjusted her antibiotic medication currently patient on Unasyn 3 g every 6 hours according to the culture, sensitivity he is not available. Seen by surgical team Dr. Connell and will be letting us know when he will be planning for discharge I did discuss it today with the patient in detail if she needed to go to a detention versus home with the visiting nurse support However in the patient need packing of the abscess every day probably detention will be better as the visiting nurse will see her every 3 days. On exam: Vital sign temperature 98.3 F oral pulse 68 bpm regular sinus, respiratory rate 16/m nonlabored, her blood pressure 146/73 with a mean 97. Oxygen saturation 96% on room air. Her diabetes POC monitor and her ranging between 127-136 and a covered with the insulin to scale as well and will resume her home medication as well. On exam: Conscious alert oriented 3. Head was normocephalic and atraumatic pupil was equal reactive and oropharynx natural teeth Neck was supple no JVD no thyromegaly no lymphadenopathy trachea midline. Chest was clear to auscultation and percussion. Heart regular sinus rhythm no event blood pressure is controlled . Abdomen is soft positive bowel sounds. Extremities positive pulses no edema Her wound packing has been changed today with the large cavity which will take longer time to complete healing especially patient is diabetic. And repacked again with the order of the surgeon Dr. Connell. Assessment patient currently we don't have sensitivity yet and she is on Unasyn 3 g every 6 hours, Waiting for sensitivity as well as need the case management coordinator for for further home care or detention. We'll continue her current home medication. And start her on heparin subcu every 12 hours. Plan: #1 diabetes mellitus well started her previous medication which is Janumet with supper once a day #2 continue the antibiotic IV until seen by infectious disease Dr. Guaman and change the medication to orally for future plan for discharge #[address] Connell regarding packing house frequency of the packing and over how many days #4 social work coordinator and discharge planning. Objective - Vital Signs Vital signs: Vital Signs Temp 98.3 F 01/02/24 11:40 Pulse 68 10/12/23 11:40 Resp 16 10/12/23 11:40 BP 146/73 10/12/23 11:40 Pulse Ox 96 10/12/23 11:40 FiO2 Intake & Output 10/11/23 10/12/23 10/12/23 18:59 06:59 18:59 Intake Total 1680 320 100 Output Total 5 Balance 1675 320 100 Intake: IV 900 Intake, IV Titration 200 100 Amount Ampicillin-Sulbactam 3 gm 200 100 In Sodium Chloride 0.9% 100 ml @ 200 mls/hr IVPB Q6HR [facility] Rx#:[id number] Oral 780 120 Output: Estimated Blood Loss 5 Other: Voiding Method Toilet Toilet Toilet # Voids 3 - Labs CBC & Chem 7: 10/10/23 07:02 10/12/23 05:35 Labs: Abnormal Lab Results - Last 24 Hours (Table) 10/11/23 10/12/23 10/12/23 Range/Units 20:23 07:26 11:43 POC Glucose (mg/dL) 169 H 162 H 127 H (70-110) mg/dL 10/12/23 Range/Units 17:13 POC Glucose (mg/dL) 136 H (70-110) mg/dL Microbiology - Last 24 Hours (Table) 10/08/23 23:00 Anaerobic Culture - Preliminary Buttock Anaerobic Gram Positive Cocci Anaerobic Gm Negative Bacilli 10/08/23 19:02 Gram Stain - Final Buttock Wound Culture - Final Escherichia coli Staphylococcus aureus 10/08/23 22:45 Blood Culture - Preliminary Blood 10/08/23 23:00 Blood Culture - Preliminary Blood 10/11/23 09:00 Gram Stain - Preliminary Buttock
[2023-10-12] MEDS: metFORMIN 500 MG TAB PO SCH (19:42)
[2023-10-12] MEDS: ATORVASTATIN 10 MG TAB PO SCH (19:43)
[2023-10-12] MEDS: LINAGLIPTIN 5 MG TABLET PO SCH (19:45)
[2023-10-12 20:32] LABS: Glucose,Whole Blood 191 mg/dL (70-110)
[2023-10-12] MEDS ORDERED: HEPARIN SODIUM,PORCINE 5,000 UNIT/ML 1 ML VIAL SQ SCH (21:00)
[2023-10-13] MEDS: AMPICILLIN-SULBACTAM 3 GM in SODIUM CHLORIDE 0.9% 100 ML IVPB SCH ×4 (05:24→23:31)
[2023-10-13 07:45] LABS: Glucose,Whole Blood 132 mg/dL (70-110)
[2023-10-13] MEDS ORDERED: HEPARIN SODIUM,PORCINE 5,000 UNIT/ML 1 ML VIAL SQ SCH (08:00)
[2023-10-13] MEDS: INSULIN ASPART (NovoLOG) 100 UNIT/ML VIAL SQ SCH ×4 (08:25→20:59)
[2023-10-13] MEDS: HEPARIN SODIUM,PORCINE 5,000 UNIT/ML 1 ML VIAL SQ SCH ×2 (09:36→20:59)
[2023-10-13] MEDS: LOSARTAN 50 MG TAB PO SCH (09:36)
[2023-10-13] MEDS: LORATADINE 10 MG TAB PO SCH (09:37)
[2023-10-13] MEDS: allopurinoL 300 MG TAB PO SCH (09:37)
[2023-10-13] MEDS: atenoloL 50 MG TAB PO SCH (09:38)
[2023-10-13] MEDS: LACTULOSE 20 GM/30 ML CUP PO SCH ×2 (09:43→20:59)
[2023-10-13 11:10] LABS: HCT 35.9 % (37.2-46.3); HGB 11.3 g/dL (12.0-15.0); MCHC 31.5 g/dL (32.0-37.0); MCV 98.4 FL (80.0-97.0); Mean Platelet Volume 11.1 FL (9.5-12.2); NRBC Per 100 WBC 0 X 10*3/uL (0.00-0.01); Platelet Count 227 X 10*3/uL (140-440); RBC 3.65 X 10*6/uL (4.10-5.20); RDW 14.5 % (11.5-14.5); WBC 7.04 X 10*3/uL (4.50-10.00)
[2023-10-13 11:20] LABS: BUN/Creat Ratio 11.67 Ratio (12.00-20.00); Blood Urea Nitrogen 10.5 mg/dL (9.0-27.0); Calcium 9.7 mg/dL (8.7-10.3); Carbon Dioxide 25.8 mmol/L (21.6-31.8); Chloride 104 mmol/L (96-109); Glucose 143 mg/dL (70-110); Sodium 143 mmol/L (135-145)
[2023-10-13 11:45] LABS: Basophils # (M) 0.07 X 10*3/uL (0.00-0.10); Eosinophils # (M) 0.28 X 10*3/uL (0.04-0.35); Lymphocytes # (M) 1.06 X 10*3/uL (0.90-5.00); Monocytes # (M) 0.35 X 10*3/uL (0.20-1.00); Neutrophils # (M) 5.28 X 10*3/uL (1.80-7.70); Neutrophils % (M) 75 %; RBC Morphology Normal (Normal)
--- NOTE | 2023-10-13 11:54 | P.PN ---
Subjective Progress Note Date: 10/13/23 Principal diagnosis: Reason for follow-up is perianal/right gluteal abscess Patient is a 83-year-old female with a past medical history of diabetes mellitus hypertension hyperlipidemia reflux patient presented to hospital on 10/08/2023 concerning for pain swelling to the gluteal area, patient been diagnosed with a right groin abscess status post surgical drainage initial culture grew MSSA and E. coli On today's evaluation that is 10/13/2022, the patient continues to be afebrile, the patient is breathing comfortably on room air, the patient denies any chest pain shortness of breath or cough no abdominal pain, the patient perirectal pain has decreased in intensity and is mostly positional Patient white count of 7.04, creatinine 0.9, OR cultures currently growing gram- negative bacilli with ID sensitivities pending Objective - Vital Signs Vital signs: Vital Signs Temp 97.8 F 10/13/23 08:00 Pulse 63 10/13/23 08:00 Resp 16 10/13/23 08:00 BP 145/63 10/13/23 08:00 Pulse Ox 96 10/13/23 08:00 FiO2 Intake & Output 10/12/23 10/13/23 10/13/23 18:59 06:59 18:59 Intake Total 100 830 Balance 100 830 Intake: Intake, IV Titration 100 Amount Ampicillin-Sulbactam 3 gm 100 In Sodium Chloride 0.9% 100 ml @ 200 mls/hr IVPB Q6HR [facility] Rx#:[id number] Oral 830 Other: Voiding Method Toilet Toilet Toilet # Voids 3 - Exam GENERAL DESCRIPTION: An elderly female up in the chair in no distress RESPIRATORY SYSTEM: Unlabored breathing , decreased breath sounds at bases HEART: S1 S2 regular rate and rhythm , ABDOMEN: Soft , no tenderness EXTREMITIES: No edema feet - Labs CBC & Chem 7: 10/13/23 05:54 10/13/23 05:54 Labs: Abnormal Lab Results - Last 24 Hours (Table) 10/12/23 10/12/23 10/12/23 Range/Units 11:43 17:13 20:31 RBC (4.10-5.20) X 10*6/uL Hgb (12.0-15.0) g/dL Hct (37.2-46.3) % MCV (80.0-97.0) FL MCHC (32.0-37.0) g/dL Anion Gap (4.00-12.00) mmol/L BUN/Creatinine Ratio (12.00-20.00) Ratio Glucose (70-110) mg/dL POC Glucose (mg/dL) 127 H 136 H 191 H (70-110) mg/dL 10/13/23 10/13/23 10/13/23 Range/Units 05:54 05:54 07:17 RBC 3.65 L (4.10-5.20) X 10*6/uL Hgb 11.3 L (12.0-15.0) g/dL Hct 35.9 L (37.2-46.3) % MCV 98.4 H (80.0-97.0) FL MCHC 31.5 L (32.0-37.0) g/dL Anion Gap 13.20 H (4.00-12.00) mmol/L BUN/Creatinine Ratio 11.67 L (12.00-20.00) Ratio Glucose 143 H (70-110) mg/dL POC Glucose (mg/dL) 132 H (70-110) mg/dL Microbiology - Last 24 Hours (Table) 10/08/23 23:00 Anaerobic Culture - Preliminary Buttock Anaerobic Gram Positive Cocci Anaerobic Gm Negative Bacilli Anaerobic Gm Negative Bacilli#2 10/11/23 09:00 Gram Stain - Preliminary Buttock Wound Culture - Preliminary Gram Neg Bacilli 10/08/23 19:02 Gram Stain - Final Buttock Wound Culture - Final Escherichia coli Staphylococcus aureus Assessment and Plan (1) MSSA (methicillin susceptible Staphylococcus aureus) infection Current Visit: Yes Status: Acute Code(s): A49.01 - METHICILLIN SUSCEP STAPH INFECTION, UNSP SITE SNOMED Code(s): 800388617 (2) Perineal abscess Current Visit: Yes Status: Acute Code(s): L02.215 - CUTANEOUS ABSCESS OF PERINEUM SNOMED Code(s): 45368500 Plan: 1patient was in the hospital with abscess to the perineal area with spontaneous drainage and subsequently was taken to the OR with further drainage of this abscess did not mention any communication with the rectum or vaginal area as per operative report, with initial culture growing MSSA and E. coli were culture done this morning are currently pending 2patient to continue with Unasyn 3 g every 6 hours currently waiting for the OR cultures to be finalized to determine discharge antibiotics more likely oral Augmentin. Questions concern answered Dictation was produced using [employer] dictation software. please excuse any gra mmatical, word or spelling errors. Time with Patient: Less than 30
[2023-10-13 13:03] LABS: Glucose,Whole Blood 151 mg/dL (70-110)
--- NOTE | 2023-10-13 15:49 | P.PN ---
Subjective Progress Note Date: 10/13/23 Progress note Date of service 10/13/[address] Lr Patient seen [id number] and she is feeling progressively better and the change in the pack of her wound every day Vital sign her temperature 90.8 F oral, heart rate is regular and ranging between 63 and 57, respiratory rate 18/m nonlabored Blood pressure 135/55 with the mean blood pressure 81. Oxygen saturation on room air fluctuating between 96% to 94%. She have some difficulty to move her walker as well as the IV pole and the need for packing is dictated that should be in the shelter where there is wound care can be available to continue packing the wound Patient live alone no children and no family member can be qualified to do that care, and the nursing visiting nurse the don't see the patient every day. For the above reason I recommend shelter [facility] or medical [facility] doesn't the only 2 places I go to. HEENT negative Neck was supple no JVD no thyromegaly no lymphadenopathy Chest astigmatic illness kyphoscoliosis but normal breath sounds Heart: Regular sinus rhythm and the blood pressure is controlled. Abdomen obese positive bowel sounds Genitourinary urinary she has incontinent. Perineal area with the right-sided abscess and extended to the left side underwent surgical incision and drainage and packing by Dr. Connell with the pain was uncontrolled currently is improving gradually Extremities no edema and positive pulses. With the underlying degenerative osteoarthritis of the knee and use a walker Neurologically stable Psychiatry stable. Assessment: #1 perineal pain associated with large abscess formation Dr. Storey projecting through the vagina or the rectum #2 status post incision and drainage #3 diabetes mellitus2 currently controlled #4 hypertension was controlled. #5 obesity class II Plan: We'll continue current antibiotic IV until Dr. Guaman infectious disease change her to oral antibiotic #2 and that time we'll after clearance from Dr. Soto for discharge and the f ollow-up #3 will be looking for shelter to continue process of packing the wound #4 also rehab medication with advanced degenerative arthritis and decreased mobility. Objective - Vital Signs Vital signs: Vital Signs Temp 98 F 10/13/23 14:00 Pulse 57 L 10/13/23 14:00 Resp 18 10/13/23 14:00 BP 135/55 10/13/23 14:00 Pulse Ox 94 L 10/13/23 14:00 FiO2 Intake & Output 10/12/23 10/13/23 10/13/23 18:59 06:59 18:59 Intake Total 100 830 Balance 100 830 Intake: Intake, IV Titration 100 Amount Ampicillin-Sulbactam 3 gm 100 In Sodium Chloride 0.9% 100 ml @ 200 mls/hr IVPB Q6HR [facility] Rx#:[id number] Oral 830 Other: Voiding Method Toilet Toilet Toilet # Voids 3 - Labs CBC & Chem 7: 10/13/23 05:54 10/13/23 05:54 Labs: Abnormal Lab Results - Last 24 Hours (Table) 10/12/23 10/12/23 10/13/23 Range/Units 17:13 20:31 05:54 RBC 3.65 L (4.10-5.20) X 10*6/uL Hgb 11.3 L (12.0-15.0) g/dL Hct 35.9 L (37.2-46.3) % MCV 98.4 H (80.0-97.0) FL MCHC 31.5 L (32.0-37.0) g/dL Anion Gap (4.00-12.00) mmol/L BUN/Creatinine Ratio (12.00-20.00) Ratio Glucose (70-110) mg/dL POC Glucose (mg/dL) 136 H 191 H (70-110) mg/dL 10/13/23 10/13/23 10/13/23 Range/Units 05:54 07:17 12:46 RBC (4.10-5.20) X 10*6/uL Hgb (12.0-15.0) g/dL Hct (37.2-46.3) % MCV (80.0-97.0) FL MCHC (32.0-37.0) g/dL Anion Gap 13.20 H (4.00-12.00) mmol/L BUN/Creatinine Ratio 11.67 L (12.00-20.00) Ratio Glucose 143 H (70-110) mg/dL POC Glucose (mg/dL) 132 H 151 H (70-110) mg/dL Microbiology - Last 24 Hours (Table) 10/08/23 23:00 Anaerobic Culture - Preliminary Buttock Anaerobic Gram Positive Cocci Anaerobic Gm Negative Bacilli Anaerobic Gm Negative Bacilli#2 10/11/23 09:00 Gram Stain - Preliminary Buttock Wound Culture - Preliminary Gram Neg Bacilli
[2023-10-13 17:10] LABS: Glucose,Whole Blood 115 mg/dL (70-110)
[2023-10-13] MEDS: metFORMIN 500 MG TAB PO SCH (17:47)
[2023-10-13] MEDS: LINAGLIPTIN 5 MG TABLET PO SCH (17:47)
[2023-10-13 19:44] LABS: Glucose,Whole Blood 112 mg/dL (70-110)
[2023-10-13] MEDS: ATORVASTATIN 10 MG TAB PO SCH (20:59)
[2023-10-14] MEDS: AMPICILLIN-SULBACTAM 3 GM in SODIUM CHLORIDE 0.9% 100 ML IVPB SCH ×4 (06:24→23:23)
[2023-10-14 07:55] LABS: Glucose,Whole Blood 136 mg/dL (70-110)
[2023-10-14] MEDS: SODIUM CHLORIDE 0.9% 1,000 ML IV SCH (07:57)
[2023-10-14] MEDS: INSULIN ASPART (NovoLOG) 100 UNIT/ML VIAL SQ SCH ×4 (07:58→21:11)
[2023-10-14] MEDS: LOSARTAN 50 MG TAB PO SCH (09:45)
[2023-10-14] MEDS: allopurinoL 300 MG TAB PO SCH (09:45)
[2023-10-14] MEDS: LACTULOSE 20 GM/30 ML CUP PO SCH ×3 (09:45→22:24)
[2023-10-14] MEDS: atenoloL 50 MG TAB PO SCH (09:45)
[2023-10-14] MEDS: LORATADINE 10 MG TAB PO SCH (09:45)
[2023-10-14] MEDS: HEPARIN SODIUM,PORCINE 5,000 UNIT/ML 1 ML VIAL SQ SCH ×2 (09:45→20:26)
[2023-10-14 12:10] LABS: Glucose,Whole Blood 123 mg/dL (70-110)
--- NOTE | 2023-10-14 12:59 | P.PN ---
Subjective Progress Note Date: 10/14/23 Progress note Date of service 10/14/2023 Dictation by Patient seen [id number] and discussed with her current plan. Also discussed with Dr. Guaman who will be writing the prescription for the [facility] antibiotic as he decided it will be Augmentin 875 mg twice a day for 10 days and it may be changed with the complaint the investigation. We'll be also waiting for director case for long-term placement for rehabilitation short time and also packing of the right perineal wound after she had the incision and drainage. Also d for Dr. Connell and his surgical team for instruction and clearance once the bed is available. On the [id number] exam Vital sign temperature 97.9 F oral Heart rate 67 bpm regular Respiratory rate 17 permanent Blood pressure is 131/71 with a mean 91 Oxygen saturation 93 on room air however fluctuating with the position of the patient but no shortness of breath. Patient feel better more comfortable today on the perineal area and no shortness of breath and no chest pain. Head was normocephalic and atraumatic Pupil is equal reactive conjunctiva was pink sclera was nonicteric extraocular muscle movement is intact Neck was supple no JVD no thyromegaly no lymphadenopathy trachea midline Chest clear to auscultation and percussion no wheezes no rhonchi's Heart was regular sinus rhythm Abdomen is obese positive bowel sounds Extremities no edema and positive pulses. Neurologically stable no lateralizing sign The abscess will be changed today and will be pegged today with the iodoform gauze. Assessment: #1 patient medically stable with the blood pressure controlled and diabetes mellitus controlled. #2 status post incision and drainage on Wednesday10/11/2023 #3 the wound culture was indicating E. coli, staph aureus none resistant Patient was on Vanco and Rocephin on admission, consultation with infectious disease Dr. Guaman Antibiotic change it to 3 g of Unasyn IV be a bag every 6 hours patient tolerated very well and improving. Plan once we have clearance from surgical and bed is available in the long-term will transfer patient. Dr. Guaman discussed with him today and he will write a prescription for antibiotic orally when she is ready to go to the long-term. Follow-up with Dr. Soto with the foster instruction in regard of the wound. Objective - Vital Signs Vital signs: Vital Signs Temp 97.9 F 01/04/24 08:00 Pulse 67 10/14/23 08:00 Resp 17 10/14/23 08:00 BP 131/71 10/14/23 08:00 Pulse Ox 93 L 10/14/23 08:00 FiO2 Intake & Output 10/13/23 10/14/23 10/14/23 18:59 06:59 18:59 Intake Total 780 Balance 780 Intake: Intake, IV Titration 200 Amount Ampicillin-Sulbactam 3 gm 200 In Sodium Chloride 0.9% 100 ml @ 200 mls/hr IVPB Q6HR [facility] Rx#:[id number] Oral 580 Other: Voiding Method Toilet Toilet # Voids 2 2 - Labs CBC & Chem 7: 10/13/23 05:54 10/13/23 05:54 Labs: Abnormal Lab Results - Last 24 Hours (Table) 10/13/23 10/13/23 10/13/23 Range/Units 12:46 17:00 19:43 POC Glucose (mg/dL) 151 H 115 H 112 H (70-110) mg/dL 10/14/23 10/14/23 Range/Units 07:32 11:58 POC Glucose (mg/dL) 136 H 123 H (70-110) mg/dL Microbiology - Last 24 Hours (Table) 10/11/23 09:00 Gram Stain - Final Buttock Wound Culture - Final Escherichia coli 10/08/23 22:45 Blood Culture - Final Blood 10/08/23 23:00 Blood Culture - Final Blood 10/08/23 23:00 Anaerobic Culture - Preliminary Buttock Anaerobic Gram Positive Cocci Anaerobic Gm Negative Bacilli Anaerobic Gm Negative Bacilli#2
[2023-10-14 17:29] LABS: Glucose,Whole Blood 120 mg/dL (70-110)
--- NOTE | 2023-10-14 17:39 | P.PN ---
Subjective Progress Note Date: 10/14/23 Principal diagnosis: Reason for follow-up is perianal/right gluteal abscess Patient is a 83-year-old female with a past medical history of diabetes mellitus hypertension hyperlipidemia reflux patient presented to hospital on 10/08/2023 concerning for pain swelling to the gluteal area, patient been diagnosed with a right groin abscess status post surgical drainage initial culture grew MSSA and E. coli On today's evaluation that is 10/14/2023, the patient remains to be afebrile, the patient is breathing comfortably on room air patient denies having any chest pain shortness of breath or cough no nausea vomiting patient rectal discomfort has decreased in intensity and no diarrhea. Patient did have white count 7.04 as of yesterday local culture finalized with E. coli and anaerobes Objective - Vital Signs Vital signs: Vital Signs Temp 97.9 F 10/14/23 12:51 Pulse 69 10/14/23 12:51 Resp 19 10/14/23 12:51 BP 143/75 10/14/23 12:51 Pulse Ox 96 10/14/23 12:51 FiO2 Intake & Output 10/13/23 10/14/23 10/14/23 18:59 06:59 18:59 Intake Total 780 Balance 780 Intake: Intake, IV Titration 200 Amount Ampicillin-Sulbactam 3 gm 200 In Sodium Chloride 0.9% 100 ml @ 200 mls/hr IVPB Q6HR [facility] Rx#:[id number] Oral 580 Other: Voiding Method Toilet Toilet # Voids 2 2 - Exam GENERAL DESCRIPTION: An elderly female up in the chair in no distress RESPIRATORY SYSTEM: Unlabored breathing , decreased breath sounds at bases HEART: S1 S2 regular rate and rhythm , ABDOMEN: Soft , no tenderness EXTREMITIES: No edema feet - Labs CBC & Chem 7: 10/13/23 05:54 10/13/23 05:54 Labs: Abnormal Lab Results - Last 24 Hours (Table) 10/13/23 10/13/23 10/13/23 Range/Units 12:46 17:00 19:43 POC Glucose (mg/dL) 151 H 115 H 112 H (70-110) mg/dL 10/14/23 10/14/23 Range/Units 07:32 11:58 POC Glucose (mg/dL) 136 H 123 H (70-110) mg/dL Microbiology - Last 24 Hours (Table) 10/11/23 09:00 Gram Stain - Final Buttock Wound Culture - Final Escherichia coli 10/08/23 22:45 Blood Culture - Final Blood 10/08/23 23:00 Blood Culture - Final Blood 10/08/23 23:00 Anaerobic Culture - Preliminary Buttock Anaerobic Gram Positive Cocci Anaerobic Gm Negative Bacilli Anaerobic Gm Negative Bacilli#2 Assessment and Plan (1) MSSA (methicillin susceptible Staphylococcus aureus) infection Current Visit: Yes Status: Acute Code(s): A49.01 - METHICILLIN SUSCEP STAPH INFECTION, UNSP SITE SNOMED Code(s): 141617605 (2) Perineal abscess Current Visit: Yes Status: Acute Code(s): L02.215 - CUTANEOUS ABSCESS OF PERINEUM SNOMED Code(s): 08385236 Plan: 1patient was in the hospital with abscess to the perineal area with spontaneous drainage and subsequently was taken to the OR with further drainage of this abscess did not mention any communication with the rectum or vaginal area as per operative report, with initial culture growing MSSA and E. coli were culture done this morning are currently pending 2patient has shown clinical improvement local culture with E. coli and anaerobes she will continue with the Unasyn finishing therapy with oral Augmentin discussed with the admitting physician on the floor Dictation was produced using [employer] dictation software. please excuse any grammatical, word or spelling errors. Time with Patient: Less than 30
[2023-10-14] MEDS: LINAGLIPTIN 5 MG TABLET PO SCH (17:59)
[2023-10-14] MEDS: metFORMIN 500 MG TAB PO SCH (17:59)
[2023-10-14] MEDS: ATORVASTATIN 10 MG TAB PO SCH (20:25)
[2023-10-14 20:40] LABS: Glucose,Whole Blood 108 mg/dL (70-110)
[2023-10-15] MEDS: AMPICILLIN-SULBACTAM 3 GM in SODIUM CHLORIDE 0.9% 100 ML IVPB SCH ×2 (05:17→12:39)
[2023-10-15 07:48] LABS: Glucose,Whole Blood 143 mg/dL (70-110)
[2023-10-15] MEDS: SODIUM CHLORIDE 0.9% 1,000 ML IV SCH (07:50)
[2023-10-15] MEDS: LACTULOSE 20 GM/30 ML CUP PO SCH ×2 (07:51→22:09)
[2023-10-15] MEDS: INSULIN ASPART (NovoLOG) 100 UNIT/ML VIAL SQ SCH ×4 (07:51→22:05)
[2023-10-15] MEDS: atenoloL 50 MG TAB PO SCH (08:42)
[2023-10-15] MEDS: HEPARIN SODIUM,PORCINE 5,000 UNIT/ML 1 ML VIAL SQ SCH ×2 (08:42→22:10)
[2023-10-15] MEDS: LORATADINE 10 MG TAB PO SCH (08:43)
[2023-10-15] MEDS: LOSARTAN 50 MG TAB PO SCH (08:43)
[2023-10-15] MEDS: allopurinoL 300 MG TAB PO SCH (08:43)
[2023-10-15 12:04] LABS: Glucose,Whole Blood 120 mg/dL (70-110)
[2023-10-15 12:46] VITALS: BMI 34.9
--- NOTE | 2023-10-15 13:27 | P.PN ---
Subjective Progress Note Date: 10/15/23 CHIEF COMPLAINT: Right buttock abscess HISTORY OF PRESENT ILLNESS: Patient is status post incision and drainage of complex right buttock abscess on 10/11/2023. She does have [address] And there is still drainage present. However, per nursing and patient the drainage has become less. Afebrile. Her pain has improved. Last WBC on 10/13/2023 was 7.04 PHYSICAL EXAM: VITAL SIGNS: Reviewed. GENERAL: Well-developed in no acute distress. ABDOMEN: Soft. Nondistended. Nontender. NEUROLOGIC: Alert and oriented. Cranial nerves II through XII grossly intact. Skin: Buttocks serosanguineous drainage noted on the dressing pad. [address] Nontender with palpation. Minimal erythema. ASSESSMENT: 1. Complex right buttock abscess status post incision and drainage PLAN: -Keep Rocio drains in place at discharge. Patient to have Rocio drains removed by Dr. Connell in the office -Continue antibiotics per infectious disease -Continue local wound care -Continue to shower daily -Patient can be discharged from surgical standpoint when medically cleared. -Patient awaiting insurance authorization for ECF placement Physician Operating Systems Specialist note has been reviewed by physician. Signing provider agrees with the documented findings, assessment, and plan of care. Objective - Vital Signs Vital signs: Vital Signs Temp 97.7 F 10/15/23 07:42 Pulse 71 10/15/23 07:42 Resp 16 10/15/23 07:42 BP 134/62 10/15/23 07:42 Pulse Ox 96 10/15/23 07:42 FiO2 Intake & Output 10/14/23 10/15/23 10/15/23 18:59 06:59 18:59 Intake Total 1280 200 Balance 1280 200 Weight 95.254 kg Intake: Intake, IV Titration 200 200 Amount Ampicillin-Sulbactam 3 gm 200 200 In Sodium Chloride 0.9% 100 ml @ 200 mls/hr IVPB Q6HR [facility] Rx#:[id number] Oral 1080 Other: Voiding Method Toilet # Voids 2 3 - Labs CBC & Chem 7: 10/13/23 05:54 10/13/23 05:54 Labs: Abnormal Lab Results - Last 24 Hours (Table) 10/14/23 10/15/23 10/15/23 Range/Units 17:18 07:41 12:02 POC Glucose (mg/dL) 120 H 143 H 120 H (70-110) mg/dL Microbiology - Last 24 Hours (Table) 10/11/23 09:00 Anaerobic Culture - Preliminary Buttock 10/08/23 23:00 Anaerobic Culture - Final Buttock Anaerobic Gram Positive Cocci Anaerobic Gm Negative Bacilli Anaerobic Gm Negative Bacilli#2 Anaerobic Gm Negative Bacilli#3 10/11/23 09:00 Gram Stain - Final Buttock Wound Culture - Final Escherichia coli
--- NOTE | 2023-10-15 16:12 | P.PN ---
Subjective Progress Note Date: 10/15/23 Principal diagnosis: Reason for follow-up is perianal/right gluteal abscess Patient is a 83-year-old female with a past medical history of diabetes mellitus hypertension hyperlipidemia reflux patient presented to hospital on 10/08/2023 concerning for pain swelling to the gluteal area, patient been diagnosed with a right groin abscess status post surgical drainage initial culture grew MSSA and E. coli On today's evaluation that is 10/15/2023, the patient continues to be afebrile the patient is breathing comfortably on room air, the patient denies any chest pain shortness of breath or cough no abdominal pain, no diarrhea pain to the perirectal area has improved No new labs were obtained today culture positive for E. coli and anaerobes Objective - Vital Signs Vital signs: Vital Signs Temp 97.7 F 10/15/23 07:42 Pulse 71 10/15/23 07:42 Resp 16 10/15/23 07:42 BP 134/62 10/15/23 07:42 Pulse Ox 96 10/15/23 07:42 FiO2 Intake & Output 10/14/23 10/15/23 10/15/23 18:59 06:59 18:59 Intake Total 1280 200 Balance 1280 200 Intake: Intake, IV Titration 200 200 Amount Ampicillin-Sulbactam 3 gm 200 200 In Sodium Chloride 0.9% 100 ml @ 200 mls/hr IVPB Q6HR [facility] Rx#:[id number] Oral 1080 Other: Voiding Method Toilet # Voids 2 3 - Exam GENERAL DESCRIPTION: An elderly female up in the chair in no distress RESPIRATORY SYSTEM: Unlabored breathing , decreased breath sounds at bases HEART: S1 S2 regular rate and rhythm , ABDOMEN: Soft , no tenderness EXTREMITIES: No edema feet - Labs CBC & Chem 7: 10/13/23 05:54 10/13/23 05:54 Labs: Abnormal Lab Results - Last 24 Hours (Table) 10/14/23 10/14/23 10/15/23 Range/Units 11:58 17:18 07:41 POC Glucose (mg/dL) 123 H 120 H 143 H (70-110) mg/dL Microbiology - Last 24 Hours (Table) 10/11/23 09:00 Anaerobic Culture - Preliminary Buttock 10/08/23 23:00 Anaerobic Culture - Final Buttock Anaerobic Gram Positive Cocci Anaerobic Gm Negative Bacilli Anaerobic Gm Negative Bacilli#2 Anaerobic Gm Negative Bacilli#3 10/11/23 09:00 Gram Stain - Final Buttock Wound Culture - Final Escherichia coli Assessment and Plan (1) MSSA (methicillin susceptible Staphylococcus aureus) infection Current Visit: Yes Status: Acute Code(s): A49.01 - METHICILLIN SUSCEP STAPH INFECTION, UNSP SITE SNOMED Code(s): 411919191 (2) Perineal abscess Current Visit: Yes Status: Acute Code(s): L02.215 - CUTANEOUS ABSCESS OF PERINEUM SNOMED Code(s): 21817525 Plan: 1patient was in the hospital with abscess to the perineal area with spontaneous drainage and subsequently was taken to the OR with further drainage of this abscess did not mention any communication with the rectum or vaginal area as per operative report, with initial culture growing MSSA and E. coli were culture done this morning are currently pending 2patient is slowly clinically improving currently on Unasyn with culture heather wing E. coli and anaerobes finishing therapy with oral Augmentin x 7 days local wound care to continue per the surgical team, plan of care discussed with the admitting physician Dictation was produced using [employer] dictation software. please excuse any grammatical, word or spelling errors. Time with Patient: Less than 30
--- NOTE | 2023-10-15 16:28 | P.PN ---
Subjective Progress Note Date: 10/15/23 Progress note Date of service 10/15/[address] Lr Disposition [facility] for continuing care of the wound and packing tomorrow, waiting for authorization from the insurance Patient cleared by by infectious disease Dr. Guaman Patient also cleared by the surgeon Dr. Byrd and his nurse practitioner who is on-call for Dr. Soto. Patient seen and evaluated [id number] discussed with the planning The liaison from [facility], Kindra RN did see the patient today stated that she waiting for authorization and patient will be staying tonight uncontrolled the authorization approved Expectation be approved tomorrow and they will contact me at that time and will discharge patient to the half-way. Patient will have a sign in the half-way by a physician because I don't have privileges in [facility] Please send old records and the recommendation of the surgical team, they recommended packing with the iodoform gauze daily and to see Dr. Soto in 1 week as outpatient Patient seen today has no complain and no pain On the exam: Vital sign temperature 98.2 F oral, pulse 77/m and regular, respiratory rate 16/m, blood pressure 146/66 with a mean 92, oxygen saturation 97% on room air. Irineo is diabetic with the controlled diabetes her blood sugar has been rang ing between 108 and 120 and that is no need for insulin coverage. However she should current medical monitored. On exam: Head was normocephalic atraumatic pupil was equal reactive conjunctiva was pink sclera was nonicteric Oropharynx nitro teeth Normal hearing No rhinitis Neck was supple no JVD no thyromegaly no lymph adenopathy trachea midline Chest: Clear to auscultation percussion no wheezes no rhonchi's Heart regular sinus rhythm Abdomen obese positive bowel sounds no tenderness Extremities: No edema and positive pulses Psychiatry stable Neurologically stable Assessment: #1 status post surgical incision and drainage by Dr. Connell for right sided large abscess in the perineum with the crossing to the left side #2 found to be present culture indicating staph aureus methicillin sensitive, E. coli #[address] Guaman infectious disease and he recommended 1 week of antibiotic with Augmentin twice a day. #4 continuation of oral hypoglycemic agent and blood pressure medication at the half-way. Plan: #1 for discharge tomorrow to [facility] the [place] after the acceptance of the insurance and clearance on the authorization #2 patient will be followed by undersigned physician in the half-way #3 she patient will be seeing in the office after she finished her treatment and discharge from the half-way. Therefore patient Celeste Dale definitely consulting and final consult the abdomen . #4 patient will continue her medication for diabetes and hypertension as well as in the hospital color return to the office. Objective - Vital Signs Vital signs: Vital Signs Temp 98.2 F 10/15/23 14:46 Pulse 77 10/15/23 14:46 Resp 16 10/15/23 14:46 BP 146/66 10/15/23 14:46 Pulse Ox 97 10/15/23 14:46 FiO2 Intake & Output 10/14/23 10/15/23 10/15/23 18:59 06:59 18:59 Intake Total 1280 200 Balance 1280 200 Weight 95.254 kg Intake: Intake, IV Titration 200 200 Amount Ampicillin-Sulbactam 3 gm 200 200 In Sodium Chloride 0.9% 100 ml @ 200 mls/hr IVPB Q6HR [facility] Rx#:[id number] Oral 1080 Other: Voiding Method Toilet # Voids 2 3 - Labs CBC & Chem 7: 10/13/23 05:54 10/13/23 05:54 Labs: Abnormal Lab Results - Last 24 Hours (Table) 10/14/23 10/15/23 10/15/23 Range/Units 17:18 07:41 12:02 POC Glucose (mg/dL) 120 H 143 H 120 H (70-110) mg/dL Microbiology - Last 24 Hours (Table) 10/11/23 09:00 Anaerobic Culture - Final Buttock 10/08/23 23:00 Anaerobic Culture - Final Buttock Anaerobic Gram Positive Cocci Anaerobic Gm Negative Bacilli Anaerobic Gm Negative Bacilli#2 Anaerobic Gm Negative Bacilli#3
[2023-10-15 17:46] LABS: Glucose,Whole Blood 110 mg/dL (70-110)
[2023-10-15] MEDS: LINAGLIPTIN 5 MG TABLET PO SCH (18:03)
[2023-10-15] MEDS: metFORMIN 500 MG TAB PO SCH (18:03)
[2023-10-15 20:28] LABS: Glucose,Whole Blood 120 mg/dL (70-110)
[2023-10-15] MEDS: ATORVASTATIN 10 MG TAB PO SCH (22:09)
[2023-10-15] MEDS: AMOXIC-POT CLAV 875-125MG 1 EACH TAB PO SCH (22:10)
[2023-10-16 07:44] LABS: Glucose,Whole Blood 124 mg/dL (70-110)
[2023-10-16] MEDS: INSULIN ASPART (NovoLOG) 100 UNIT/ML VIAL SQ SCH ×2 (09:38→13:00)
[2023-10-16] MEDS: LORATADINE 10 MG TAB PO SCH (09:54)
[2023-10-16] MEDS: LOSARTAN 50 MG TAB PO SCH (09:54)
[2023-10-16] MEDS: atenoloL 50 MG TAB PO SCH (09:54)
[2023-10-16] MEDS: AMOXIC-POT CLAV 875-125MG 1 EACH TAB PO SCH ×2 (09:54→21:49)
[2023-10-16] MEDS: allopurinoL 300 MG TAB PO SCH (09:54)
[2023-10-16] MEDS: LACTULOSE 20 GM/30 ML CUP PO SCH ×3 (09:54→21:48)
[2023-10-16] MEDS: HEPARIN SODIUM,PORCINE 5,000 UNIT/ML 1 ML VIAL SQ SCH (09:55)
--- NOTE | 2023-10-16 11:08 | P.PN ---
Subjective Progress Note Date: 10/16/23 (Surgery) Complex right buttock abscess status post incision and drainage PLAN: -Keep [place] drains in place at discharge. Patient to have [place] drains removed by Dr. Connell in the office -Continue antibiotics per infectious disease -Continue local wound care -Continue to shower daily -Patient can be discharged from surgical standpoint when medically cleared. -Patient awaiting insurance authorization for ECF placement Objective - Vital Signs Vital signs: Vital Signs Temp 98.7 F 10/16/23 07:43 Pulse 72 10/16/23 07:43 Resp 16 10/16/23 07:43 BP 117/68 10/16/23 07:43 Pulse Ox 97 10/16/23 07:43 FiO2 Intake & Output 10/15/23 10/16/23 10/16/23 18:59 06:59 18:59 Weight 95.254 kg Other: # Voids 1 - Labs CBC & Chem 7: 10/13/23 05:54 10/13/23 05:54 Labs: Abnormal Lab Results - Last 24 Hours (Table) 10/15/23 10/15/23 10/16/23 Range/Units 12:02 20:16 07:43 POC Glucose (mg/dL) 120 H 120 H 124 H (70-110) mg/dL Microbiology - Last 24 Hours (Table) 10/11/23 09:00 Anaerobic Culture - Final Buttock
[2023-10-16 12:20] LABS: Glucose,Whole Blood 152 mg/dL (70-110)
--- NOTE | 2023-10-16 13:16 | P.DS ---
Providers Date of admission: 10/10/23 14:01 Expected date of discharge: 10/16/23 Attending physician: Jorge Luis Smiley Consults: 10/08/23 22:37 Consult Physician Routine Consulting Provider: Sarahy Guaman Consult Reason/Comments: perineal abscess Do you want consulting provider notified?: Yes, Notify in am 10/15/23 11:25 Consult Physician Routine Consulting Provider: Norman Herrera Consult Reason/Comments: post op I&D Do you want consulting provider notified?: Already Contacted Primary care physician: Jorge Luis Smiley Discharge summary Date of discharge 10/16/2023 Dictation by Final diagnoses: Acute abscess in the right sided perineal area associated with severe pain 10 over 10 #2 status post incision and drainage by Dr. Connell, with the packing, found to be extension to the left perineal area #3 diabetes mellitus type 2 controlled on discharge #3 essential hypertension controlled #4 obesity class II #5 hyper uricemia was gouty arthritis #6 degenerative arthritis of the joint. #7 the abscess culture with the definitive E. coli, and's susceptible staph aureus. ALLERGY unknown Surgical consult Dr. Connell. Infectious disease consult Dr. Guaman. Presentation to the ER: Patient had severe pain in the perineal area with pain 10 over 10 inability to sit up associated with drainage with the pinhole, drainage was positive for bacteria. In the ER the did a computed tomography scan found abscess formation with drainage Also in the ER was severe pain with the trial of examination of the rectal Abscess did not reach the vagina or the rectum. Hospital course: Surgical case consultation was the surgeon front desk agent Dr. Connell patient started in the ER with vancomycin Subsequently culture indicating gram-negative and the Rocephin was started Consultation with the infectious disease obtained Dr. Connell did take her to the operative room on the new year with the incision and drainage and packing Followed by surgical team Her medication was reviewed adjusted with the chronic illness was diabetes mellitus and hypertension and history of gouty arthropathy has been monitored. Patient could not do the packing for herself, and the need for the packing daily by the surgical team orders and visiting nurse will not be able to do this job Patient was unable to walk with the pain and she'll use walker when gradual improvement and rehab indicating need long-term for packing and continue rehab Patient stable general condition, insurance today approved and authorized the transferred to long-term [facility]. Patient will be discharged to [facility] on the legs today Patient will be attended with different physician. Assignment of the facility as I don't have privilege in [facility] After finishing her treatment with the antibiotic for 7 days she should be seen with Dr. Soto for for further evaluation and treatment The nurse practitioner indicating the 8 the drainage continued to be present until removed by Dr. Connell in the outpatient Also surgical team indicating continue the packing until seen by Dr. Connell in the office in one week Patient after discharge from long-term, she need appointment with the office with Dr. smiley for the follow-up on her chronic disease diabetes mellitus and hypertension. Patient stable general condition for discharge Exam on discharge: Patient is conscious alert oriented 3 no acute complain except of some discomfort in the surgical site and relieved with regular Tylenol HEENT was negative, oropharynx natural teeth, normal hearing. Neck was supple no JVD no thyromegaly no lymphadenopathy trachea midline Chest was clear to auscultation and percussion Heart regular sinus rhythm Abdomen is obese positive bowel sounds no constipation Extremities: No edema positive pulses. Neurologically: Stable no lateralizing sign. Ambulate with walker because of her pain in her buttocks Psychiatry: Stable Assessment: Stable general condition will be transferred to [facility] today with the current medication. Plan: Continue her current medication as equal and silent, continue antibiotic for 1 week, Follow-up with Dr. Soto in 1 week for surgical follow-up and removal of draining line Follow-up with Dr. smiley in the office after discharge from long-term. Patient Condition at Discharge: Stable Plan - Discharge Summary New Discharge Prescriptions: New metFORMIN HCL [Glucophage] 1,000 mg PO W/SUPPER tab Linagliptin [Tradjenta] 5 mg PO W/SUPPER tab Acetaminophen Tab [Tylenol] 650 mg PO Q6HR PRN tab PRN Reason: Mild Pain Or Fever > 100.5 Amoxic-Pot Clav 875-125Mg [Augmentin 875-125] 1 tab PO BID 10 Days #20 tab Lactulose [Cephulac] 20 gm PO BID ml Amoxic-Pot Clav 875-125Mg [Augmentin 875-125] 1 each PO Q12HR 7 Days #14 tab Continue Atorvastatin [Lipitor] 10 mg PO HS Atenolol 50 mg PO DAILY Losartan [Cozaar] 50 mg PO DAILY Fexofenadine HCl [[place] Allergy] 180 mg PO DAILY allopurinoL [Zyloprim] 300 mg PO DAILY Artificial Tears-Hypromellose [Artificial Tear Drops] 1 drop BOTH EYES QID PRN PRN Reason: dry eyes Discontinued sitaGLIPtin PHOS/metFORMIN HCL [Janumet 50-1,000 mg Tablet] 1 tab PO W/SUPPER Discharge Medication List Atenolol 50 mg PO DAILY 10/08/14 [History] Atorvastatin [Lipitor] 10 mg PO HS 10/08/14 [History] Artificial Tears-Hypromellose [Artificial Tear Drops] 1 drop BOTH EYES QID PRN 10/08/23 [History] Fexofenadine HCl [[place] Allergy] 180 mg PO DAILY 10/08/23 [History] Losartan [Cozaar] 50 mg PO DAILY 10/08/23 [History] allopurinoL [Zyloprim] 300 mg PO DAILY 10/08/23 [History] Amoxic-Pot Clav 875-125Mg [Augmentin 875-125] 1 tab PO BID 10 Days #20 tab 10/14/23 [Rx] Acetaminophen Tab [Tylenol] 650 mg PO Q6HR PRN tab 10/16/23 [Rx] Amoxic-Pot Clav 875-125Mg [Augmentin 875-125] 1 each PO Q12HR 7 Days #14 tab 10/16/23 [Rx] Lactulose [Cephulac] 20 gm PO BID ml 10/16/23 [Rx] Linagliptin [Tradjenta] 5 mg PO W/SUPPER tab 10/16/23 [Rx] metFORMIN HCL [Glucophage] 1,000 mg PO W/SUPPER tab 10/16/23 [Rx] Follow up Appointment(s)/Referral(s): Mitch Connell MD [Medical Doctor] - 10/19/23 Jorge Luis Smiley MD [Primary Care Provider] - 1-2 days
[2023-10-16] MEDS: LINAGLIPTIN 5 MG TABLET PO SCH (16:38)
[2023-10-16] MEDS: metFORMIN 500 MG TAB PO SCH (16:38)
[2023-10-16] MEDS: ATORVASTATIN 10 MG TAB PO SCH (21:49)
[2023-10-17 07:33] LABS: Glucose,Whole Blood 105 mg/dL (70-110)
[2023-10-17] MEDS: LOSARTAN 50 MG TAB PO SCH (08:38)
[2023-10-17] MEDS: atenoloL 50 MG TAB PO SCH (08:39)
[2023-10-17] MEDS: LORATADINE 10 MG TAB PO SCH (08:39)
[2023-10-17] MEDS: AMOXIC-POT CLAV 875-125MG 1 EACH TAB PO SCH ×2 (08:39→20:09)
[2023-10-17] MEDS: allopurinoL 300 MG TAB PO SCH (08:39)
[2023-10-17] MEDS: LACTULOSE 20 GM/30 ML CUP PO SCH ×2 (08:39→19:49)
--- NOTE | 2023-10-17 11:11 | P.PN ---
Progress Note - Text Progress Note Date: 10/17/23 Patient ME stable. She has no point pain. On exam vital signs are stable. Abdomen soft. Right buttock is stable. Patient is most likely be discharged home today.
[2023-10-17 11:57] LABS: Glucose,Whole Blood 111 mg/dL (70-110)
--- NOTE | 2023-10-17 15:51 | P.PN ---
Subjective Progress Note Date: 10/18/23 Progress note Date of service 10/17/2023 Dictation by Patient seen [id number] today Vital sign: Temperature is 97.6 F oral, heart rate 64 bpm regular sinus Respiratory rate 18/m nonlabored Blood pressure 104/67 mean 79. Oxygen saturation 97% on room air. Blood glucose monitor for diabetes mellitus and ranging between 105 and 111. Discussed with the patient and her nurse today apparently the authorization from the insurance was not obtained yet, yesterday I did discharge the patient to the skilled nursing [facility] and subsequently a couple hours later they called me with the perfect serve to indicate that patient will stay because authorization was not yet obtained from the insurance and the skilled nursing could not receive the patient without the authorization. Patient seen today evaluated discussed with the patient and hopefully probably patient go to the skilled nursing tomorrow. Patient has no specific complaint she had changes of the dressing today with a deep abscess wound and needs continuous the daily dressing and she will be in the skilled nursing for one week at least and seen by Dr. Soto in his office and at that time decision of leaving skilled nursing or not. Patient her blood pressure controlled and diabetes mellitus controlled at this time. On the physical exam Patient is very pleasant conscious alert oriented 3 use the walker for ambulation. Head was normocephalic and atraumatic pupil was equal reactive conjunctiva was pink sclera was nonicteric Her oropharynx natural teeth The neck was supple no JVD no thyromegaly no lymphadenopathy trachea midline. Chest was clear to auscultation and percussion Heart was regular sinus rhythm no dysrhythmia or chest pain Abdomen is soft positive bowel sounds obese Extremities: Positive pulses and trace edema Neurologically stable no lateralizing sign Psychiatry stable. Assessment: And plan #1 peritoneal abscess between the rectum and the vagina with the extension from the right side to the left side #2 status post incision and drainage by Dr. Connell #3 patient inability to do the wound dressing by herself in a while the recommendation by surgery to be done every day and the visiting nurse will not be able to daily packing the wound and for that reason patient need the skilled nursing. #4 patient seen today by Dr. Byrd decision covering for Dr. Soto. #5 will continue same current treatment and plan for discharge tomorrow when the authorization obtained to the skilled nursing Objective - Vital Signs Vital signs: Vital Signs Temp 97.6 F 10/17/23 11:52 Pulse 64 10/17/23 11:52 Resp 18 10/17/23 11:52 BP 104/67 10/17/23 11:52 Pulse Ox 97 10/17/23 11:52 FiO2 Intake & Output 10/16/23 10/17/23 10/17/23 18:59 06:59 18:59 Other: Voiding Method Bedside Commode # Voids 1 1 # Bowel Movements 1 - Labs CBC & Chem 7: 10/13/23 05:54 10/13/23 05:54 Labs: Abnormal Lab Results - Last 24 Hours (Table) 10/17/23 Range/Units 11:56 POC Glucose (mg/dL) 111 H (70-110) mg/dL
[2023-10-17 17:13] LABS: Glucose,Whole Blood 123 mg/dL (70-110)
[2023-10-17] MEDS: LINAGLIPTIN 5 MG TABLET PO SCH (18:03)
[2023-10-17] MEDS: metFORMIN 500 MG TAB PO SCH (18:03)
--- NOTE | 2023-10-17 18:14 | P.PN ---
Subjective Progress Note Date: 10/16/23 Principal diagnosis: Reason for follow-up is perianal/right gluteal abscess Patient is a 83-year-old female with a past medical history of diabetes mellitus hypertension hyperlipidemia reflux patient presented to hospital on 10/08/2023 concerning for pain swelling to the gluteal area, patient been diagnosed with a right groin abscess status post surgical drainage initial culture grew MSSA and E. coli On today's evaluation that is 10/16/2023 the patient remains to be afebrile the patient is breathing comfortably on room air without the need for supplemental oxygen, the patient denies any chest pain, the patient denies chest pain shortness of breath or cough, patient denies having nausea no vomiting the patient abdominal pain, mention not feeling that good today Patient white count is 7.4 creatinine 0.9 as of 10/13/2023, local culture positive for E. coli and anaerobes Objective - Vital Signs Vital signs: Vital Signs Temp 97.5 F L 10/16/23 02:00 Pulse 75 10/16/23 02:00 Resp 18 10/16/23 02:00 BP 150/67 10/16/23 02:00 Pulse Ox 95 10/16/23 02:00 FiO2 Intake & Output 10/15/23 10/16/23 10/16/23 18:59 06:59 18:59 Weight 95.254 kg Other: # Voids 1 - Exam GENERAL DESCRIPTION: An elderly female up in the chair in no distress RESPIRATORY SYSTEM: Unlabored breathing , decreased breath sounds at bases HEART: S1 S2 regular rate and rhythm , ABDOMEN: Soft , no tenderness EXTREMITIES: No edema feet - Labs CBC & Chem 7: 10/13/23 05:54 10/13/23 05:54 Labs: Abnormal Lab Results - Last 24 Hours (Table) 10/15/23 10/15/23 10/16/23 Range/Units 12:02 20:16 07:43 POC Glucose (mg/dL) 120 H 120 H 124 H (70-110) mg/dL Microbiology - Last 24 Hours (Table) 10/11/23 09:00 Anaerobic Culture - Final Buttock Assessment and Plan (1) MSSA (methicillin susceptible Staphylococcus aureus) infection Current Visit: Yes Status: Acute Code(s): A49.01 - METHICILLIN SUSCEP STAPH INFECTION, UNSP SITE SNOMED Code(s): 976954653 (2) Perineal abscess Current Visit: Yes Status: Acute Code(s): L02.215 - CUTANEOUS ABSCESS OF PERINEUM SNOMED Code(s): 85753936 Plan: 1patient was in the hospital with abscess to the perineal area with spontaneous drainage and subsequently was taken to the OR with further drainage of this abscess did not mention any communication with the rectum or vaginal area as per operative report, with initial culture growing MSSA and E. coli were culture done this morning are currently pending 2the patient has shown clinical improvement patient has been afebrile, patient has been switched over to oral Augmentin to continue and monitor clinical course closely Dictation was produced using [employer] dictation software. please excuse any grammatical, word or spelling errors. Time with Patient: Less than 30
--- NOTE | 2023-10-17 18:15 | P.PN ---
Subjective Progress Note Date: 10/17/23 Principal diagnosis: Reason for follow-up is perianal/right gluteal abscess Patient is a 83-year-old female with a past medical history of diabetes mellitus hypertension hyperlipidemia reflux patient presented to hospital on 10/08/2023 concerning for pain swelling to the gluteal area, patient been diagnosed with a right groin abscess status post surgical drainage initial culture grew MSSA and E. coli On today's evaluation that is 10/17/2023 the patient continues to be afebrile, the patient is breathing comfortably on room air patient denies having any chest pain shortness of the cough no nausea vomiting no abdominal pain and pain to the perirectal area has decreased in intensity feeling better today, Patient white count is 7.4 creatinine 0.9 as of 10/13/2023, local culture positive for E. coli and anaerobes Objective - Vital Signs Vital signs: Vital Signs Temp 97.6 F 10/17/23 11:52 Pulse 64 10/17/23 11:52 Resp 18 10/17/23 11:52 BP 104/67 10/17/23 11:52 Pulse Ox 97 10/17/23 11:52 FiO2 Intake & Output 10/16/23 10/17/23 10/17/23 18:59 06:59 18:59 Other: Voiding Method Bedside Commode # Voids 1 2 # Bowel Movements 1 - Exam GENERAL DESCRIPTION: An elderly female up in the chair in no distress RESPIRATORY SYSTEM: Unlabored breathing , decreased breath sounds at bases HEART: S1 S2 regular rate and rhythm , ABDOMEN: Soft , no tenderness EXTREMITIES: No edema feet - Labs CBC & Chem 7: 10/13/23 05:54 10/13/23 05:54 Labs: Abnormal Lab Results - Last 24 Hours (Table) 10/17/23 10/17/23 Range/Units 11:56 17:12 POC Glucose (mg/dL) 111 H 123 H (70-110) mg/dL Assessment and Plan (1) MSSA (methicillin susceptible Staphylococcus aureus) infection Current Visit: Yes Status: Acute Code(s): A49.01 - METHICILLIN SUSCEP STAPH INFECTION, UNSP SITE SNOMED Code(s): 146808287 (2) Perineal abscess Current Visit: Yes Status: Acute Code(s): L02.215 - CUTANEOUS ABSCESS OF PERINEUM SNOMED Code(s): 21441478 Plan: 1patient was in the hospital with abscess to the perineal area with spontaneous drainage and subsequently was taken to the OR with further drainage of this abscess did not mention any communication with the rectum or vaginal area as per operative report, with initial culture growing MSSA and E. coli were culture done this morning are currently pending 2patient has shown overall improvement is currently covered with oral Augmentin to continue for about 7 days on discharge local care to continue per surgery qu estion concern answered Dictation was produced using [employer] dictation software. please excuse any gr ammatical, word or spelling errors. Time with Patient: Less than 30
[2023-10-17] MEDS: ATORVASTATIN 10 MG TAB PO SCH (20:09)
[2023-10-17 20:33] LABS: Glucose,Whole Blood 113 mg/dL (70-110)
[2023-10-18 07:18] LABS: Glucose,Whole Blood 126 mg/dL (70-110)
[2023-10-18] MEDS: LACTULOSE 20 GM/30 ML CUP PO SCH (08:42)
[2023-10-18] MEDS: AMOXIC-POT CLAV 875-125MG 1 EACH TAB PO SCH (08:42)
[2023-10-18] MEDS: LOSARTAN 50 MG TAB PO SCH (08:42)
[2023-10-18] MEDS: atenoloL 50 MG TAB PO SCH (08:42)
[2023-10-18] MEDS: LORATADINE 10 MG TAB PO SCH (08:42)
[2023-10-18] MEDS: allopurinoL 300 MG TAB PO SCH (08:42)
[2023-10-18 12:52] LABS: Glucose,Whole Blood 109 mg/dL (70-110)
--- NOTE | 2023-10-18 13:00 | P.DS ---
Providers Date of admission: 10/10/23 14:01 Expected date of discharge: 10/18/23 (Authorization obtained from Cristino Marcelino) Attending physician: Jorge Luis rL Consults: 10/08/23 22:37 Consult Physician Routine Consulting Provider: Sarahy Guaman Consult Reason/Comments: perineal abscess Do you want consulting provider notified?: Yes, Notify in am 10/18/23 08:19 Consult Physician Routine Consulting Provider: Mitch Connell Consult Reason/Comments: s/p abscess I&D Do you want consulting provider notified?: Already Contacted Primary care physician: Jorge Luis Lr This is a discharge summary Date of service 10/18/[address]Elsafy Clifford Damon on the [facility] Authorization was obtained from Dr. Cristino Mcpherson Final diagnosis: #1 right perineal abscess formation with extension to the left side large. #2 no extension to the vagina or the rectum by the computed tomography scan #3 status post open incision and drainage by Dr. Connell general surgeon #4 diabetes mellitus type 2 controlled #5 hypertension controlled. #6 obesity class II. #7 abscess infection with E. coli and staph aureus methicillin sensitive. 83 years old white female , lives alone no children and difficulties of packing the wound on her home, and visiting nurse will not be able to see the patient every day because of the large won't discussed with authorizing physician, patient accepted to go to the half-way Patient should be seeing Dr. Soto in 1 week for follow-up. Continue packing the wound every day. The surgical order. With the INR for conscious. Presentation to the ER Severe pain in the perineal area unable to sit or stand with the pain 10 over 10. Computed tomography scan of the pelvis was indicating abscess with the surgical case needs further incision and drainage as the abscess was with a pinhole and need for further surgical attention. Consultation with Dr. Soto obtained Patient underwent incision and drainage was found to be extended to the left great nail area. With the culture indicating E. coli and staph aureus methicillin sensitive. Patient treated on admission with vancomycin, followed with adding Rocephin Infectious disease consultation with Dr. Guaman indicating changing antibiotic to Unasyn 3 g every 6 hours. In the plan of discharge patient changing to oral Augmentin 875 mg twice a day for 10 days. Hospital course as above Exam on discharge: Vital sign temperature 97.9 F oral, pulse 70 per minute regular sinus, respiratory rate 16 nonlabored, Blood pressure 134/74, with a mean 94, oxygen saturation 99%. Head was normocephalic and atraumatic pupils equal reactive oropharynx natural disease, normal hearing Neck was supple no JVD no thyromegaly no lymphadenopathy trachea midline. Chest clear to auscultation and percussion normal breath sounds Heart regular sinus rhythm controlled blood pressure Abdomen soft positive bowel sounds obese no tenderness normal BM Extremities no edema and positive pulses Neurologically no lateralizing signs stable Psychiatry stable Assessment and plan #1 patient stable to be discharged today to the half-way. #2 continue the current treatment and medication #3 continue packing the wound with the surgical nurse in the half-way facility Number for contact Dr. Soto for follow-up in the office and the removal of the drainage as well as plan for care. Patient Condition at Discharge: Stable Plan - Discharge Summary New Discharge Prescriptions: New metFORMIN HCL [Glucophage] 1,000 mg PO W/SUPPER tab Linagliptin [Tradjenta] 5 mg PO W/SUPPER tab Acetaminophen Tab [Tylenol] 650 mg PO Q6HR PRN tab PRN Reason: Mild Pain Or Fever > 100.5 Amoxic-Pot Clav 875-125Mg [Augmentin 875-125] 1 tab PO BID 10 Days #20 tab Lactulose [Cephulac] 20 gm PO BID ml Amoxic-Pot Clav 875-125Mg [Augmentin 875-125] 1 each PO Q12HR 7 Days #14 tab Continue Atorvastatin [Lipitor] 10 mg PO HS Atenolol 50 mg PO DAILY Losartan [Cozaar] 50 mg PO DAILY Fexofenadine HCl [[place] Allergy] 180 mg PO DAILY allopurinoL [Zyloprim] 300 mg PO DAILY Artificial Tears-Hypromellose [Artificial Tear Drops] 1 drop BOTH EYES QID PRN PRN Reason: dry eyes Discontinued sitaGLIPtin PHOS/metFORMIN HCL [Janumet 50-1,000 mg Tablet] 1 tab PO W/SUPPER Discharge Medication List Atenolol 50 mg PO DAILY 10/08/14 [History] Atorvastatin [Lipitor] 10 mg PO HS 10/08/14 [History] Artificial Tears-Hypromellose [Artificial Tear Drops] 1 drop BOTH EYES QID PRN 10/08/23 [History] Fexofenadine HCl [[place] Allergy] 180 mg PO DAILY 10/08/23 [History] Losartan [Cozaar] 50 mg PO DAILY 10/08/23 [History] allopurinoL [Zyloprim] 300 mg PO DAILY 10/08/23 [History] Amoxic-Pot Clav 875-125Mg [Augmentin 875-125] 1 tab PO BID 10 Days #20 tab 10/14/23 [Rx] Acetaminophen Tab [Tylenol] 650 mg PO Q6HR PRN tab 10/16/23 [Rx] Amoxic-Pot Clav 875-125Mg [Augmentin 875-125] 1 each PO Q12HR 7 Days #14 tab 10/16/23 [Rx] Lactulose [Cephulac] 20 gm PO BID ml 10/16/23 [Rx] Linagliptin [Tradjenta] 5 mg PO W/SUPPER tab 10/16/23 [Rx] metFORMIN HCL [Glucophage] 1,000 mg PO W/SUPPER tab 10/16/23 [Rx] Follow up Appointment(s)/Referral(s): Mitch Connell MD [Medical Doctor] - 10/19/23 Jorge Luis Lr MD [Primary Care Provider] - 1-2 days
[2023-10-18 13:08] VITALS: BP 123/65; PULSE 58; RESP 18; TEMP 97.7
--- NOTE | 2023-10-18 13:29 | P.PN ---
Subjective Progress Note Date: 10/18/23 CHIEF COMPLAINT: Right buttock abscess HISTORY OF PRESENT ILLNESS: Patient is status post incision and drainage of complex right buttock abscess on 10/11/2023. She does have [address] And there is still drainage present. Afebrile. Patient is awaiting insurance authorization for ECF placement. Afebrile. PHYSICAL EXAM: VITAL SIGNS: Reviewed. GENERAL: Well-developed in no acute distress. ABDOMEN: Soft. Nondistended. Nontender. NEUROLOGIC: Alert and oriented. Cranial nerves II through XII grossly intact. Skin: Buttocks serosanguineous drainage noted on the dressing pad. [address] Nontender with palpation. Minimal erythema. ASSESSMENT: 1. Complex right buttock abscess status post incision and drainage PLAN: -Keep [place] drains in place at discharge. Patient to have [place] drains removed by Dr. Connell in the office -Continue antibiotics per infectious disease -Continue local wound care -Continue to shower daily -Patient can be discharged from surgical standpoint when medically cleared. -Patient awaiting insurance authorization for ECF placement Physician Perlite Grinder note has been reviewed by physician. Signing provider agrees with the documented findings, assessment, and plan of care. Objective - Vital Signs Vital signs: Vital Signs Temp 97.7 F 10/18/23 12:50 Pulse 58 L 10/18/23 12:50 Resp 18 10/18/23 12:50 BP 123/65 10/18/23 12:50 Pulse Ox 99 10/18/23 12:50 FiO2 Intake & Output 10/17/23 10/18/23 10/18/23 18:59 06:59 18:59 Intake Total 590 Balance 590 Intake: Oral 590 Other: Voiding Method Toilet Toilet # Voids 2 2 # Bowel Movements 1 - Labs CBC & Chem 7: 10/13/23 05:54 10/13/23 05:54 Labs: Abnormal Lab Results - Last 24 Hours (Table) 10/17/23 10/17/23 10/18/23 Range/Units 17:12 20:31 07:17 POC Glucose (mg/dL) 123 H 113 H 126 H (70-110) mg/dL
--- NOTE | 2023-10-21 14:57 | CDI ---
Documentation Clarification Form Date: 10/21/2023 From: Lenny Pérez Admit Date: 10/10/2023 02:01:00 PM Patient Name: Michelle Hughes Visit Number: [id number] Discharge Date: 10/18/2023 03:18:00 PM ATTENTION: The Clinical Documentation Specialists (CDI) and [facility] Coding Staff appreciate your assistance in clarifying documentation. Please respond to the clarification below the line at the bottom and electronically sign. The CDI & [facility] Coding staff will review the response and follow-up if needed. Please note: Queries are made part of the Legal Health Record. If you have any questions, please contact the author of this message via ITS. Dr. Jorge Luis Lr There is documentation of perineal abscess in a diabetic patient. Additional clarification is requested regarding any relationship between the two diagnoses. History/Risk Factors: 83-year-old female with a several day history of perineal pain and drainage. Patient states for the past 2-3 days she has developed increasing perineal pain which subsequently resulted in drainage. She denies any prior episodes such as this. Upon presentation to the emergency department a CT abdomen and pelvis was obtained which showed evidence of a right-sided perineal abscess. Clinical Indicators: 10/09 H&P: diabetes mellitus controlled. Cyst at the end of the coccyx with drainage and pain with a questionable pyloroduodenal cyst versus abscess with the close proximity to the vagina and the rectum. 10/10 Progress note: Perineal abscess - On exam the patient has a small wound with erythema and fluctuance in the right buttock region. CAT scan shows this to be extending down to the perirectal tissues however. There is improvement with spontaneous drainage however the site of spontaneous drainage is quite small and I worry that this is not adequately draining the infection. Options discussed with patient. We'll proceed with incision and drainage in the operative room tomorrow. Treatment: Low dose Insulin sliding scale, Vancomycin 1500mg (10/09-10/11), Ceftriaxone 1gm (10/11), Unasyn 3gm (10/11-10/15), Linagliptin (10/12-10/18), Metformin (10/12-10/18). Can you please clarify if any relationship exists between the Diabetes and Abscess, if known: [ ] Yes, the Diabetes and Abscess are related [ ] No, the Diabetes and Abscess are not related [ ] Other, please specify [ ] Unable to determine MTDD
--- NOTE | 2023-10-25 12:14 | P.PN ---
Subjective Progress Note Date: 10/18/23 Principal diagnosis: Reason for follow-up is perianal/right gluteal abscess Patient is a 83-year-old female with a past medical history of diabetes mellitus hypertension hyperlipidemia reflux patient presented to hospital on 10/08/2023 concerning for pain swelling to the gluteal area, patient been diagnosed with a right groin abscess status post surgical drainage initial culture grew MSSA and E. coli On today's evaluation that is 10/18/2023 the patient remains to be afebrile, the patient is breathing comfortably on room air patient denies having any chest pain shortness of the cough no nausea vomiting no abdominal pain and pain to the perirectal area has decreased in intensity no new symptoms currently waiting for discharge Patient labs were reviewed local culture positive for E. coli and anaerobes Objective - Vital Signs Vital signs: Vital Signs Temp 97.7 F 10/18/23 12:50 Pulse 58 L 10/18/23 12:50 Resp 18 10/18/23 12:50 BP 123/65 10/18/23 12:50 Pulse Ox 99 10/18/23 12:50 FiO2 Intake & Output 10/17/23 10/18/23 10/18/23 18:59 06:59 18:59 Intake Total 590 Balance 590 Intake: Oral 590 Other: Voiding Method Toilet Toilet # Voids 2 2 # Bowel Movements 1 - Exam GENERAL DESCRIPTION: An elderly female up in the chair in no distress RESPIRATORY SYSTEM: Unlabored breathing , decreased breath sounds at bases HEART: S1 S2 regular rate and rhythm , ABDOMEN: Soft , no tenderness EXTREMITIES: No edema feet - Labs CBC & Chem 7: 10/13/23 05:54 10/13/23 05:54 Labs: Abnormal Lab Results - Last 24 Hours (Table) 10/17/23 10/17/23 10/18/23 Range/Units 17:12 20:31 07:17 POC Glucose (mg/dL) 123 H 113 H 126 H (70-110) mg/dL Assessment and Plan (1) MSSA (methicillin susceptible Staphylococcus aureus) infection Status: Acute Code(s): A49.01 - METHICILLIN SUSCEP STAPH INFECTION, UNSP SITE SNOMED Code(s): 783469400 (2) Perineal abscess Status: Acute Code(s): L02.215 - CUTANEOUS ABSCESS OF PERINEUM SNOMED Code(s): 65997898 Plan: 1patient was in the hospital with abscess to the perineal area with spontaneous drainage and subsequently was taken to the OR with further drainage of this abscess did not mention any communication with the rectum or vaginal area as per operative report, with initial culture growing MSSA and E. coli were culture done this morning are currently pending 2patient slowly clinical improving, patient will continue d with oral Augmentin for about 7 days on discharge local care to continue per surgery question concern answered Dictation was produced using [employer] dictation software. please excuse any grammatical, word or spelling errors. Time with Patient: Less than 30
--- NOTE | 2023-10-26 12:39 | CDI ---
Documentation Clarification Form Date: 10/21/2023 12:00:00 AM From: Lenny Pérez Admit Date: 10/10/2023 02:01:00 PM Patient Name: Michelle Hughes Visit Number: [id number] Discharge Date: 10/18/2023 03:18:00 PM ATTENTION: The Clinical Documentation Specialists (CDI) and [facility] Coding Staff appreciate your assistance in clarifying documentation. Please respond to the clarification below the line at the bottom and electronically sign. The CDI & [facility] Coding staff will review the response and follow-up if needed. Please note: Queries are made part of the Legal Health Record. If you have any questions, please contact the author of this message via ITS. Dr. Jorge Luis Lr There is documentation of perineal abscess in a diabetic patient. Additional clarification is requested regarding any relationship between the two diagnoses. History/Risk Factors: 83-year-old female with a several day history of perineal pain and drainage. Patient states for the past 2-3 days she has developed increasing perineal pain which subsequently resulted in drainage. She denies any prior episodes such as this. Upon presentation to the emergency department a CT abdomen and pelvis was obtained which showed evidence of a right-sided perineal abscess. Clinical Indicators: 10/09 H&P: diabetes mellitus controlled. Cyst at the end of the coccyx with drainage and pain with a questionable pyloroduodenal cyst versus abscess with the close proximity to the vagina and the rectum. 10/10 Progress note: Perineal abscess - On exam the patient has a small wound with erythema and fluctuance in the right buttock region. CAT scan shows this to be extending down to the perirectal tissues however. There is improvement with spontaneous drainage however the site of spontaneous drainage is quite small and I worry that this is not adequately draining the infection. Options discussed with patient. We'll proceed with incision and drainage in the operative room tomorrow. Treatment: Low dose Insulin sliding scale, Vancomycin 1500mg (10/09-10/11), Ceftriaxone 1gm (10/11), Unasyn 3gm (10/11-10/15), Linagliptin (10/12-10/18), Metformin (10/12-10/18). Can you please clarify if any relationship exists between the Diabetes and Abscess, if known: [ x ] Yes, the Diabetes and Abscess are related [ ] No, the Diabetes and Abscess are not related [ ] Other, please specify [ ] Unable to determine MTDD
== END 2023-10-18 15:18 | DRG 638 ==
LOC: EC 15:34 → 5NMEDONC 23:27 → OBSVTOIN 10-10 14:01
PROVIDERS: ADMIT Internal Medicine; ATTEND Internal Medicine
PROC: 0HB8XZZ Excision of Buttock Skin, External Approach (ICD-10-PCS; principal; 2023-10-11 08:00)
PROC: 0J9900Z Drainage of Buttock Subcutaneous Tissue and Fascia with Drainage Device, Open Approach (ICD-10-PCS; principal; 2023-10-11 08:00)
DX: E11.628 Type 2 diabetes mellitus with other skin complications (principal); L02.215 Cutaneous abscess of perineum; L02.31 Cutaneous abscess of buttock; M53.3 Sacrococcygeal disorders, not elsewhere classified; K21.9 Gastro-esophageal reflux disease without esophagitis; E78.5 Hyperlipidemia, unspecified; R32 Unspecified urinary incontinence; E66.9 Obesity, unspecified; Z68.34 Body mass index [BMI] 34.0-34.9, adult; M10.9 Gout, unspecified; E83.42 Hypomagnesemia; M19.90 Unspecified osteoarthritis, unspecified site; I45.10 Unspecified right bundle-branch block; I11.9 Hypertensive heart disease without heart failure; B96.20 Unspecified Escherichia coli [E. coli] as the cause of diseases classified elsewhere; B95.61 Methicillin susceptible Staphylococcus aureus infection as the cause of diseases classified elsewhere; Z79.899 Other long term (current) drug therapy; Z85.42 Personal history of malignant neoplasm of other parts of uterus; Z79.84 Long term (current) use of oral hypoglycemic drugs
CPT/HCPCS: 36415; 74177; 80048; 80053; 80202; 82565; 83605; 83735; 85025; 85610; 85730; 87040; 87070; 87075; 87077; 87186; 87205; 93005; 96365; 96375; 99285

== ENCOUNTER → 2024-01-03 | Outpatient (CLI) | payer MEDICARE ==
[2024-01-03 13:02] LABS: African American GFR (CKD) 76 (>60 ml/min/1.73 sqM); Blood Urea Nitrogen 20 mg/dL (7-17); Non-African American GFR(CKD) 66 (>60 ml/min/1.73 sqM)
--- NOTE | 2024-01-03 13:56 | CT ---
CT pelvis with contrast. HISTORY: Cutaneous abscess buttock. COMPARISON: CT abdomen pelvis dated 01/07/2021 TECHNIQUE: Multiple axial images are obtained through the pelvis following uneventful administration of nonionic IV contrast material. FINDINGS: There is a small soft tissue defect in the left medial buttock that measures approximately 7 mm in si ze. There is a soft tissue tract extends to the perineum but does not communicate with the rectum.The re is no discrete abscess. No focal osseous abnormalities are seen. Visualized bowel loops are normal in caliber. The visualized portions of the kidneys reveals no solid mass. There is no intra-abdominal aortic aneu rysm. There is no pelvic mass, free fluid, abscess or adenopathy. There are surgical absence of the uterus Impression: Medial left buttock soft tissue abnormality described above. No other significant amount is seen.
== END | disposition home or self-care (01) ==
LOC: RADCTMAIN 11:53
PROVIDERS: ATTEND Surgery
DX: M79.9 Soft tissue disorder, unspecified (principal); L02.31 Cutaneous abscess of buttock
CPT/HCPCS: 82565; 84520; 72193; 36415; Q9967

== ENCOUNTER 2024-02-07 06:19 | Observation (INO) | payer MEDICARE ==
[~2024-02-07 06:19] MED LIST changes: +HYDROmorphone 0.5 MG/0.5 ML SYRINGE IVP PRN; -HYDROmorphone 1 MG/ML 1 ML SYRINGE IVP PRN; -MIDAZOLAM 2 MG/2 ML VIAL IV PRN; -ONDANSETRON 4 MG/2 ML VIAL IVP ONE; -Pre Op ABX Message 1 EACH MISC MISCELLANE ONE
[2024-02-07 06:57] LABS: Glucose,Whole Blood 110 mg/dL (70-110)
[2024-02-07] MEDS: LACTATED RINGERS 1,000 ML IV SCH (06:58)
[2024-02-07 07:02] VITALS: RESP 16
[2024-02-07] MEDS: ONDANSETRON 4 MG/2 ML VIAL IVP ONE (07:09)
[2024-02-07] MEDS: HEPARIN SODIUM,PORCINE 5,000 UNIT/ML 1 ML VIAL SQ PRN (07:09)
[2024-02-07] MEDS: ACETAMINOPHEN TAB 500 MG TAB PO PRN (07:09)
[2024-02-07] MEDS: DEXAMETHASONE SOD PHOSPHATE 4 MG/ML 1 ML VIAL IV ONE (07:09)
--- NOTE | 2024-02-07 07:24 | P.HPADDEND ---
H&P Addendum H&P Addendum Date: 02/07/24 Patient and I discussed options again by phone recently. She agreed to proceed with surgery. Will proceed with incision and drainage of buttock wounds. Tentatively plan 23-hour observation so we can arrange home care. Risks of bleeding, infection, poor healing, pain, scarring all reviewed. She understands wishes to proceed.
[2024-02-07] MEDS ORDERED: fentaNYL (PF) 50 MCG/ML 2 ML AMP ONE (07:25)
[2024-02-07] MEDS ORDERED: SUCCINYLCHOLINE CHLORIDE 200 MG/10 ML VIAL IV ONE (07:25)
[2024-02-07] MEDS ORDERED: LIDOCAINE 1% INJ 10MG/ML (20 ML MDV) ONE (07:25)
[2024-02-07] MEDS ORDERED: PROPOFOL 10 MG/ML 20 ML VIAL IV ONE (07:25)
[2024-02-07] MEDS ORDERED: ceFAZolin 1 GM/50 ML BAG (PMX) ONE (07:25)
[2024-02-07] MEDS: SODIUM CHLORIDE 0.9% 50 ML with ceFAZolin 2,000 MG IV ONE (07:48)
[2024-02-07 08:42] LABS: Glucose,Whole Blood 122 mg/dL (70-110)
[2024-02-07] MEDS ORDERED: ONDANSETRON 4 MG/2 ML VIAL IVP PRN (08:42)
[2024-02-07] MEDS ORDERED: traMADol 50 MG TAB PO PRN (08:42)
[2024-02-07] MEDS ORDERED: HYDROmorphone 0.5 MG/0.5 ML SYRINGE IVP PRN (08:42)
[2024-02-07] MEDS ORDERED: NALOXONE 0.4 MG/ML 1 ML VIAL IV PRN (08:42)
[2024-02-07] MEDS ORDERED: ACETAMINOPHEN TAB 325 MG TAB PO PRN ×2 (08:42→13:59)
--- NOTE | 2024-02-07 08:56 | P.OP ---
Date of Procedure: 02/07/24 Procedure(s) Performed: PREOPERATIVE DIAGNOSIS: Buttock wounds POSTOPERATIVE DIAGNOSIS: Fistulous wounds bilateral buttocks, anal fistula, subcutaneous abscess PROCEDURE: Incision and drainage perirectal abscess with seton placement and wound packing, debridement of abscess cavity SURGEON: Ko EBL: 20 cc ANESTHESIA: General COMPLICATIONS: None OPERATIVE PROCEDURE: Patient placed in the prone jackknife position after general anesthesia achieved. The perianal and buttock regions were closely examined. The patient had a small fistulous opening 1.5 cm posterior to the anal opening. There was an additional small fistulous opening on the left buttock approximately 2 cm from midline and 4 cm from the perianal fistula. An additional fistulous opening was present on the right buttock about 2 to 3 cm from midline 6 cm from the anal fistula. These fistulous openings were all communicating with 1 another in the subcutaneous tissues. The skin between the perianal fistula in the right buttock was divided. The skin between the right buttock and left buttock was then divided. The abscess cavity was inspected. This had a chronic appearance. Cultures were taken. Curette was used to debride the subcutaneous tissues in that area. This was performed in an excisional manner. There was a dimpling of the wound base inferiorly. This measured about 8 x 8 mm. As this was probed it seemed to run parallel with the anterior aspect of the rectum. The rectal set was utilized. With a rectal retractor in place to the anal region and rectum were carefully inspected. There was a indentation at the anal rectal junction posteriorly and after probing that a anal fistula was identified into the wound bed. Where this entered the wound bed however was separate from the fistulous opening that was identified previously. A curette was used to clean out this fistulous tract. This was likely the source of recent malodorous drainage. This was irrigated thoroughly. Despite numerous attempts with a probe we could not find any connection between this fistula in the rectum by digital palpation. A white vessel loop was used as a seton through the superficial anal fistula that was seen posterior midline. This was tightened down using 2 separate 0 silk sutures. The fistulous tract running parallel with the rectum was packed with iodophor gauze and the outer wound was packed with wet-to-dry saline moistened Kerlix roll. Sterile outer dressings were applied. DISPOSITION: Stable to recovery room. Discussed findings with the patient's family. Patient with history of previous pelvic radiation after ovarian cancer in the past. This is somehow likely contributing to this fistulous tract. Unable to identify any connection to the bowel currently. Recent CT pelvis also did not show any definite rectal fistula. Continue local wound care. Will consult Mallory who sees her in the wound care center to assist with outpatient wound care.
[2024-02-07 12:28] LABS: Glucose,Whole Blood 149 mg/dL (70-110)
[2024-02-07] MEDS: Pre Op ABX Message 1 EACH MISC MISCELLANE ONE (12:49)
[2024-02-07] MEDS: KETOROLAC 15 MG/ML 1 ML VIAL IVP SCH (13:06)
[2024-02-07] MEDS: D5-0.45% NACL WITH KCL 20MEQ/L 1,000 ML IV SCH (13:06)
[2024-02-07] MEDS ORDERED: ARTIFICIAL TEARS-HYPROMELLOSE DROPS 15 ML BTL BOTH EYES PRN (13:59)
[2024-02-07] MEDS: DOCUSATE 100 MG CAP PO SCH (15:55)
[2024-02-07] MEDS: LOSARTAN 50 MG TAB PO SCH (15:55)
[2024-02-07] MEDS: HEPARIN SODIUM,PORCINE 5,000 UNIT/ML 1 ML VIAL SQ SCH (15:55)
[2024-02-07 17:18] LABS: Glucose,Whole Blood 244 mg/dL (70-110)
--- NOTE | 2024-02-07 17:51 | P.CONS ---
History of Present Illness - Reason for Consult Consult date: 02/07/24 (Medical management) Patient admitted to the hospital electively for underlying fistulous format Requesting physician: Mitch Connell - History of Present Illness Patient is a medical consult requested by Dr. Soto the surgeon Date of service 02/07/[address] Lr Mrs. 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 Soto as he has been following the patient and he did the previous surgery he found that she has been in the wound center for healing and the packet but there is no improvement with the continuous drainage of the buttocks area right and the left. Patient brought electively for incision and drainage and and opening the fistulous formation with the foul odor drainage continuous. After surgery postoperative consult was requested because of the patient history of previous medical problem Patient has history of diabetes mellitus type 2 Obesity BMI 35.5 kg/m which is second stage obesity. She has a past history of hyperuricemia and gouty arthritis and she is on allopurinol chronically She has history of peripheral edema bilaterally with venous insufficiency. And varicose veins Patient has history of hypertension with the hypertensive heart disease. Patient has no known allergy. On the physical exam today her temperature 97.6 F oral, her heart rate 87 bpm and regular sinus, respiratory rate 16/min nonlabored, his blood pressure is fairly well-controlled for the surgery and has been fluctuating between 119/62 169/73 and the last blood pressure recorded is 147/78 with a mean blood pressure 101. Her pulse ox on room air was 97 the last 1 Only pain in the left gluteal area over the right and sitting position only and she had pain medication has been ordered for her otherwise patient feels comfortable and she glad that she had the surgery. On exam: Head was normocephalic atraumatic pupil was equal reactive conjunctiva was pink sclera was nonicteric, oropharynx natural teeth with normal swallowing and normal hearing. Neck was supple no JVD no thyromegaly no lymphadenopathy trachea midline. Chest is clear, normal breath sounds inspiratory expiratory no wheezes no rhonchi's Heart regular sinus rhythm no history of dysrhythmia Abdomen obese positive bowel sounds no tenderness in the 4 quadrant and no suprapubic tenderness. Only tenderness is applied to her recent surgery which is understandable with the surgery Extremities she has trace edema which has been improved from previous office visit with the significant edema. Neurologically stable no lateralizing sign. Her laboratory the abdomen checking her CBG and the last 1 was 244 and they will be covering with the insulin and scale Assessment: And plan 1. Diabetes mellitus type 2 and she has continued her current medication and reconciled 2. We ordered also insulin to scale for coverage with the underlying surgery. 3. She had history of hyperuricemia and we are continuing her allopurinol. 4. Hyperlipidemia and has also covered with her atorvastatin. 5. History of constipation on her blood pressure medication losartan 50 mg once a day Patient medically stable and hopefully that continues to heal and she is satisfied at this time with the care. We continued her Tradjenta as well as all her home medication including Claritin. Thank you Dr. Soto for letting me participate in the care of Mrs. Hughes will follow with you Past Medical History Past Medical History: Cancer, Diabetes Mellitus, GERD/Reflux, Hyperlipidemia, Hypertension Additional Past Medical History / Comment(s): Diabetes controlled with meds - no insulin, gout,uterine cancer w/ radiation 2016, abscess buttock since 10/02 - packing, drainage History of Any Multi-Drug Resistant Organisms: None Reported Past Surgical History: Breast Surgery, Cholecystectomy, Hysterectomy, Orthopedic Surgery Additional Past Surgical History / Comment(s): SHER KNEE ARTHROSCOPY. D&C, HYSTEROSCOPY- uterine cancer with radiation/hysterectomy february 2017. RT BREAST STEREO BENIGN 2008, 2016. SHER CATARACT REMOVAL. Past Anesthesia/Blood Transfusion Reactions: No Reported Reaction Smoking Status: Never smoker - Past Family History Brother(s) Family Medical History: Cancer Mother Family Medical History: Cancer Medications and Allergies Home Medications Medication Instructions Recorded Confirmed Type Atenolol 50 mg PO HS 10/08/14 02/07/24 History Atorvastatin [Lipitor] 10 mg PO HS 10/08/14 02/07/24 History Artificial Tears-Hypromellose 1 drop BOTH EYES QID PRN 10/08/23 02/07/24 History [Artificial Tear Drops] Fexofenadine HCl [[place] Allergy] 180 mg PO QAM 10/08/23 02/07/24 History Losartan [Cozaar] 50 mg PO QAM 10/08/23 02/07/24 History allopurinoL [Zyloprim] 300 mg PO QAM 10/08/23 02/07/24 History Acetaminophen Tab [Tylenol] 650 mg PO Q6HR PRN tab 10/16/23 02/07/24 Rx Cyanocobalamin [Vitamin B-12] 500 mcg PO QAM 02/03/24 02/07/24 History Lansoprazole [Prevacid] 30 mg PO QAM 02/03/24 02/07/24 History Naproxen Sodium [Aleve] 220 mg PO QAM 02/03/24 02/03/24 History Psyllium Husk [Metamucil] 1 cap PO PC-BRKFST 02/03/24 02/07/24 History sitaGLIPtin PHOS/metFORMIN HCL 1 tab PO PC-SUPPER 02/03/24 02/07/24 History [Janumet 50-1,000 mg Tablet] Allergies Allergy/AdvReac Type Severity Reaction Status Date / Time No Known Allergies Allergy Verified 02/07/24 06:39 Physical Exam Vitals: Vital Signs Temp Pulse Resp BP Pulse Ox 02/07/24 12:50 71 147/78 97 02/07/24 12:35 71 149/78 94 L 02/07/24 12:23 97.6 F 87 16 169/73 95 02/07/24 11:30 72 16 119/60 93 L 02/07/24 11:00 66 16 142/65 95 02/07/24 10:29 70 16 150/72 97 02/07/24 10:00 72 16 162/76 97 02/07/24 09:35 72 16 143/77 96 02/07/24 09:20 68 16 150/72 95 02/07/24 09:05 70 16 159/84 94 L 02/07/24 08:50 75 16 159/75 92 L 02/07/24 08:35 98 F 100 18 161/76 100 02/07/24 06:42 97.4 F L 72 16 178/79 96 Intake and Output 02/07/24 02/07/24 02/07/24 06:59 14:59 22:59 Intake Total 1050 Output Total 310 Balance 740 Intake: IV 1050 Output: Urine 300 Estimated Blood Loss 10 Other: Weight 96.7 kg Results Labs: Abnormal Lab Results - Last 24 Hours (Table) 02/07/24 02/07/24 02/07/24 Range/Units 08:41 12:25 17:17 POC Glucose (mg/dL) 122 H 149 H 244 H (70-110) mg/dL
[2024-02-07] MEDS: metFORMIN 500 MG TAB PO SCH (17:58)
[2024-02-07] MEDS: LINAGLIPTIN 5 MG TABLET PO SCH (17:59)
[2024-02-07] MEDS: HYDROcodone/APAP 5-325MG 1 EACH TAB PO PRN (19:20)
[2024-02-07] MEDS: ATORVASTATIN 10 MG TAB PO SCH (20:04)
[2024-02-07] MEDS: atenoloL 50 MG TAB PO SCH (20:04)
[2024-02-07] MEDS: FAMOTIDINE 20 MG TAB PO SCH (20:04)
[2024-02-07 20:17] LABS: Glucose,Whole Blood 122 mg/dL (70-110)
[2024-02-08 07:16] LABS: Glucose,Whole Blood 90 mg/dL (70-110)
[2024-02-08] MEDS: LORATADINE 10 MG TAB PO SCH (08:33)
[2024-02-08] MEDS: PANTOPRAZOLE 40 MG TABLET PO SCH (08:33)
[2024-02-08] MEDS: PSYLLIUM HUSK 100% 6 GM PACKET PO SCH (08:33)
[2024-02-08] MEDS: CYANOCOBALAMIN 500 MCG TAB PO SCH (08:33)
[2024-02-08] MEDS: allopurinoL 300 MG TAB PO SCH (08:33)
[2024-02-08 08:46] VITALS: BP 147/73; PULSE 56; TEMP 97.8
[2024-02-08 11:24] LABS: Basophils # (A) 0.04 X 10*3/uL (0.00-0.10); Basophils % (A) 0.4 %; Eosinophils # (A) 0.04 X 10*3/uL (0.04-0.35); Eosinophils % (A) 0.4 %; HCT 39.6 % (37.2-46.3); HGB 12.3 g/dL (12.0-15.0); Lymphocytes % (A) 13.4 %; MCH 31.6 pg (27.0-32.0); MCHC 31.1 g/dL (32.0-37.0); MCV 101.8 FL (80.0-97.0); Mean Platelet Volume 11.2 FL (9.5-12.2); Monocytes # (A) 0.83 X 10*3/uL (0.20-1.00); Monocytes % (A) 8.5 %; NRBC Per 100 WBC 0 X 10*3/uL (0.00-0.01); Neutrophils # (A) 7.44 X 10*3/uL (1.80-7.70); Neutrophils % (A) 76.6 %; Platelet Count 208 X 10*3/uL (140-440); RBC 3.89 X 10*6/uL (4.10-5.20); RDW 14.8 % (11.5-14.5); WBC 9.72 X 10*3/uL (4.50-10.00)
[2024-02-08 11:26] LABS: Blood Urea Nitrogen 23.9 mg/dL (9.0-27.0); Calcium 9.2 mg/dL (8.7-10.3); Carbon Dioxide 22.8 mmol/L (21.6-31.8); Chloride 105 mmol/L (96-109); Glucose 100 mg/dL (70-110); Potassium 4.8 mmol/L (3.5-5.5); Sodium 139 mmol/L (135-145)
--- NOTE | 2024-02-08 11:55 | P.CONS ---
History of Present Illness - Reason for Consult Consult date: 02/08/24 wound care - History of Present Illness This is an 83-year-old patient known to the wound care center with nonhealing ulcerations to the right and left buttocks. Patient underwent an I&D and surgical debridement of the multiple open ulcerations. Area is packed with iodoform. Patient was discharged from the wound care service however we will be happy to reopen her case if she decides to return. Patient was offered hyp erbaric oxygen therapy due to history of radiation to the pelvis related to ovarian cancer. Discussed with patient utilizing absorptive silver rope for dressing changes. Review Of Systems: Constitutional: No fever, no chills, no night sweats. No weight change. No weakness, fatigue or lethargy. No daytime sleepiness. Integumentary:reports wounds, no lesions. No rash or pruritus. No unusual b ruising. No change in hair or nails. Physical exam: General Appearance: Alert, cooperative, no distress, appears stated age. Skin: See HPI all other Skin color, texture, tugor normal, no rashes or lesions. Neurologic: Alert oriented x3 Assessment: 1. Nonhealing ulceration of sacrum multiple sites with fat layer exposure 2. Diabetes with skin ulceration 3. Soft tissue radionecrosis Plan: 1. Apply absorptive silver rope. Cover with bordered foam or ABD. Will be happy to see the patient upon discharge in the wound care center. Discussed with patient utilizing hyperbaric oxygen therapy. Thank you for the consultation any questions please contact the wound care center DNP note has been reviewed and discussed with Dr. Saavedra and the impression and plan of care has been directed as dictated. Past Medical History Past Medical History: Cancer, Diabetes Mellitus, GERD/Reflux, Hyperlipidemia, Hypertension Additional Past Medical History / Comment(s): Diabetes controlled with meds - no insulin, gout,uterine cancer w/ radiation 2016, abscess buttock since 10/02 - packing, drainage History of Any Multi-Drug Resistant Organisms: None Reported Past Surgical History: Breast Surgery, Cholecystectomy, Hysterectomy, Orthopedic Surgery Additional Past Surgical History / Comment(s): SHER KNEE ARTHROSCOPY. D&C, HYSTEROSCOPY- uterine cancer with radiation/hysterectomy february 2017. RT BREAST STEREO BENIGN 2008, 2016. SHER CATARACT REMOVAL. Past Anesthesia/Blood Transfusion Reactions: No Reported Reaction Smoking Status: Never smoker - Past Family History Brother(s) Family Medical History: Cancer Mother Family Medical History: Cancer Medications and Allergies Home Medications Medication Instructions Recorded Confirmed Type Atenolol 50 mg PO HS 10/08/14 02/07/24 History Atorvastatin [Lipitor] 10 mg PO HS 10/08/14 02/07/24 History Artificial Tears-Hypromellose 1 drop BOTH EYES QID PRN 10/08/23 02/07/24 History [Artificial Tear Drops] Fexofenadine HCl [[place] Allergy] 180 mg PO QAM 10/08/23 02/07/24 History Losartan [Cozaar] 50 mg PO QAM 10/08/23 02/07/24 History allopurinoL [Zyloprim] 300 mg PO QAM 10/08/23 02/07/24 History Acetaminophen Tab [Tylenol] 650 mg PO Q6HR PRN tab 10/16/23 02/07/24 Rx Cyanocobalamin [Vitamin B-12] 500 mcg PO QAM 02/03/24 02/07/24 History Lansoprazole [Prevacid] 30 mg PO QAM 02/03/24 02/07/24 History Naproxen Sodium [Aleve] 220 mg PO QAM 02/03/24 02/03/24 History Psyllium Husk [Metamucil] 1 cap PO PC-BRKFST 02/03/24 02/07/24 History sitaGLIPtin PHOS/metFORMIN HCL 1 tab PO PC-SUPPER 02/03/24 02/07/24 History [Janumet 50-1,000 mg Tablet] Allergies Allergy/AdvReac Type Severity Reaction Status Date / Time No Known Allergies Allergy Verified 02/07/24 06:39 Physical Exam Vitals: Vital Signs Temp Pulse Resp BP Pulse Ox 02/08/24 08:00 97.8 F 56 L 16 147/73 100 02/08/24 01:31 98.4 F 61 16 111/53 98 02/07/24 21:54 16 02/07/24 18:39 98.1 F 73 16 138/68 96 02/07/24 12:50 71 147/78 97 02/07/24 12:35 71 149/78 94 L 02/07/24 12:23 97.6 F 87 16 169/73 95 Intake and Output 02/07/24 02/08/24 02/08/24 22:59 06:59 14:59 Intake Total 120 120 Balance 120 120 Intake: Oral 120 120 Other: Voiding Method Toilet # Voids 1 Results CBC & Chem 7: 02/08/24 06:44 02/08/24 06:44 Labs: Abnormal Lab Results - Last 24 Hours (Table) 02/07/24 02/07/24 02/07/24 Range/Units 12:25 17:17 20:15 RBC (4.10-5.20) X 10*6/uL MCV (80.0-97.0) FL MCHC (32.0-37.0) g/dL RDW (11.5-14.5) % Immature Gran # (0.00-0.04) X 10*3/uL Est GFR (CKD-EPI) (>=60) BUN/Creatinine Ratio (12.00-20.00) Ratio POC Glucose (mg/dL) 149 H 244 H 122 H (70-110) mg/dL 02/08/24 02/08/24 Range/Units 06:44 06:44 RBC 3.89 L (4.10-5.20) X 10*6/uL MCV 101.8 H (80.0-97.0) FL MCHC 31.1 L (32.0-37.0) g/dL RDW 14.8 H (11.5-14.5) % Immature Gran # 0.07 H (0.00-0.04) X 10*3/uL Est GFR (CKD-EPI) 56 L (>=60) BUN/Creatinine Ratio 23.90 H (12.00-20.00) Ratio POC Glucose (mg/dL) (70-110) mg/dL Microbiology - Last 24 Hours (Table) 02/07/24 08:23 Gram Stain - Preliminary Buttock Assessment and Plan (1) Non-pressure chronic ulcer of buttock with fat layer exposed Current Visit: Yes Status: Acute Code(s): L98.412 - NON-PRESSURE CHRONIC ULCER OF BUTTOCK WITH FAT LAYER EXPOSED SNOMED Code(s): 936847457 (2) Type 2 diabetes mellitus with other skin ulcer Current Visit: Yes Status: Acute Code(s): E11.622 - TYPE 2 DIABETES MELLITUS WITH OTHER SKIN ULCER; L98.499 - NON-PRESSURE CHRONIC ULCER OF SKIN OF SITES W UNSP SEVERITY SNOMED Code(s): 646248516 (3) Other specified disorders of the skin and subcutaneous tissue related to r adiation Current Visit: Yes Status: Acute Code(s): L59.8 - OTH DISRD OF THE SKIN, SUBCU RELATED TO RADIATION SNOMED Code(s): 82571896
[2024-02-08 12:14] LABS: Glucose,Whole Blood 106 mg/dL (70-110)
--- NOTE | 2024-02-08 12:49 | P.DS ---
Providers Expected date of discharge: 02/08/24 Attending physician: Mitch Connell Consults: 02/07/24 08:45 Consult Physician Routine Consulting Provider: Jorge Luis Lr Consult Reason/Comments: Medical management Do you want consulting provider notified?: Yes Primary care physician: Jorge Luis Lr [facility] Course: 83-year-old female underwent incision and drainage of perianal and buttock wounds yesterday. Patient doing well today. Pain is well-controlled. No fevers. White blood cell count normal. Cultures are still pending. Will plan discharge with plans for outpatient follow-up with both myself and the wound care center. Will reach out to Mallory from the wound care center and discuss operative findings and further wound care options. Plan - Discharge Summary Discharge Rx Participant: Yes New Discharge Prescriptions: No Action Atorvastatin [Lipitor] 10 mg PO HS Atenolol 50 mg PO HS Losartan [Cozaar] 50 mg PO QAM Fexofenadine HCl [[place] Allergy] 180 mg PO QAM Acetaminophen Tab [Tylenol] 650 mg PO Q6HR PRN tab PRN Reason: Mild Pain Or Fever > 100.5 Naproxen Sodium [Aleve] 220 mg PO QAM Lansoprazole [Prevacid] 30 mg PO QAM Cyanocobalamin [Vitamin B-12] 500 mcg PO QAM allopurinoL [Zyloprim] 300 mg PO QAM Artificial Tears-Hypromellose [Artificial Tear Drops] 1 drop BOTH EYES QID PRN PRN Reason: dry eyes sitaGLIPtin PHOS/metFORMIN HCL [Janumet 50-1,000 mg Tablet] 1 tab PO PC- SUPPER Psyllium Husk [Metamucil] 1 cap PO PC-BRKFST Discharge Medication List Atenolol 50 mg PO HS 10/08/14 [History] Atorvastatin [Lipitor] 10 mg PO HS 10/08/14 [History] Artificial Tears-Hypromellose [Artificial Tear Drops] 1 drop BOTH EYES QID PRN 10/08/23 [History] Fexofenadine HCl [[place] Allergy] 180 mg PO QAM 10/08/23 [History] Losartan [Cozaar] 50 mg PO QAM 10/08/23 [History] allopurinoL [Zyloprim] 300 mg PO QAM 10/08/23 [History] Acetaminophen Tab [Tylenol] 650 mg PO Q6HR PRN tab 10/16/23 [Rx] Cyanocobalamin [Vitamin B-12] 500 mcg PO QAM 02/03/24 [History] Lansoprazole [Prevacid] 30 mg PO QAM 02/03/24 [History] Naproxen Sodium [Aleve] 220 mg PO QAM 02/03/24 [History] Psyllium Husk [Metamucil] 1 cap PO PC-BRKFST 02/03/24 [History] sitaGLIPtin PHOS/metFORMIN HCL [Janumet 50-1,000 mg Tablet] 1 tab PO PC-SUPPER 02/03/24 [History] Follow up Appointment(s)/Referral(s): Mitch Connell MD [Medical Doctor] - 02/23/24 2:00 pm Nursing,[place] [NON-STAFF] - 1 Week Jorge Luis Lr MD [Primary Care Provider] - 1 Week
[2024-02-09] MEDS ORDERED: FAMOTIDINE 20 MG TAB PO SCH (09:00)
== END 2024-02-08 15:50 | disposition home or self-care (01) ==
LOC: OR 06:19 → 5NMEDONC 08:35 → OR 02-08 11:52 → 5NMEDONC 02-08 11:52
PROVIDERS: ADMIT Surgery; ATTEND Surgery
DX: L02.31 Cutaneous abscess of buttock (principal); K60.3 Anal fistula; L59.8 Other specified disorders of the skin and subcutaneous tissue related to radiation; Y84.2 Radiological procedure and radiotherapy as the cause of abnormal reaction of the patient, or of later complication, without mention of misadventure at the time of the procedure; E11.622 Type 2 diabetes mellitus with other skin ulcer; L98.412 Non-pressure chronic ulcer of buttock with fat layer exposed; M10.9 Gout, unspecified; I11.9 Hypertensive heart disease without heart failure; E78.5 Hyperlipidemia, unspecified; K21.9 Gastro-esophageal reflux disease without esophagitis; E66.9 Obesity, unspecified; Z68.35 Body mass index [BMI] 35.0-35.9, adult; Z85.42 Personal history of malignant neoplasm of other parts of uterus; Z85.43 Personal history of malignant neoplasm of ovary; Z92.3 Personal history of irradiation; Z79.84 Long term (current) use of oral hypoglycemic drugs; Z79.899 Other long term (current) drug therapy
CPT/HCPCS: 46020; 96376 ×2; 96372 ×2; 96374; 80048; 85025; 87070; 87205; 87075; 83036; G0378; J1644 ×2; J1100; J2405; J0690; J1885 ×2; 87077; 87186

== ENCOUNTER → 2024-04-05 | Outpatient (CLI) | payer MEDICARE ==
[2024-04-05 21:37] LABS: BUN/Creat Ratio 24.78 Ratio (12.00-20.00); Blood Urea Nitrogen 22.3 mg/dL (9.0-27.0); Chloride 102 mmol/L (96-109); Glucose 111 mg/dL (70-110); Magnesium 1.5 mg/dL (1.5-2.4); Potassium 4.6 mmol/L (3.5-5.5); Sodium 140 mmol/L (135-145)
== END | disposition home or self-care (01) ==
LOC: LABWHC1 14:28
PROVIDERS: ATTEND Internal Medicine
DX: I10 Essential (primary) hypertension (principal); E87.8 Other disorders of electrolyte and fluid balance, not elsewhere classified
CPT/HCPCS: 36415; 80048; 83735

== ENCOUNTER → 2024-04-06 | Outpatient (CLI) | payer MEDICARE ==
--- NOTE | 2024-04-06 13:19 | CT ---
EXAMINATION TYPE: CT abdomen pelvis w con DATE OF EXAM: 04/06/2024 COMPARISON: 01/03/2024 and 10/08/2023 HISTORY: 84-year-old female K6 0.4, RECTAL FISTULA. Prior on pacs TECHNIQUE: Contiguous axial scanning of the abdomen and pelvis following administration of 100 ml Iso lenoila 300 IV contrast. Delayed images through the kidneys and coronal/sagittal reconstructions perform ed. CT DLP: 1758.50 mGycm Automated exposure control for dose reduction was used. FINDINGS: Heart upper limits of normal in size without pericardial effusion. Dense mitral annular calcification s redemonstrated. Strandy atelectasis or scarring of the lower lungs. Tiny hiatal hernia. No focal liver lesion or biliary ductal dilatation. Portal venous system is patent. Cholecystectomy c lips. Adrenal glands, spleen, pancreas within normal limits. Bilateral extra renal pelves are redemonstrated. Symmetric uptake and excretion of contrast from the kidneys. No dilated small bowel, free fluid, or free air. No mesenteric or retroperitoneal lymphadenopathy. Oral contrast progressed to the proximal third transverse colon. There is mild stool burden. Mild circumferential wall thickening extending along the descending and proximal to mid sigmoid colon with somewhat ahaustral appearance. Bladder partially distended. Mild pelvic floor relaxation. Uterus surgically absent. Ovaries not well delineated. Some similar stranding in left adnexa. No reaccumulation of abnormal fluid at the site of previous collapsed cavity right levator musculatur e. There is redemonstration of a left paramedian posterior perianal fistula extending to the medial l eft gluteal skin. Air along the thickened tract is visualized, refer to axial image 83. Bones: Moderate degenerative change at both hips. 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 Degenerative grad e 1 anterolisthesis L4-L5 and grade 1 retrolisthesis L2-L3. 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 IMPRESSION: 1. 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 NO ABNORMAL F LUID ACCUMULATION. 2. THE SITE OF PREVIOUS ABSCESS AND COLLAPSED CAVITY ALONG THE RIGHT LEVATOR ANI MUSCULATURE IS NO LO NGER APPRECIABLE. 3. CIRCUMFERENTIAL WALL THICKENING ALONG THE DESCENDING AND PROXIMAL TO MID SIGMOID COLON WITH SOMEWH AT AHAUSTRAL APPEARANCE. CONSIDER NONSPECIFIC [id number] COLITIS.
== END | disposition home or self-care (01) ==
LOC: RADCTMAIN 10:32
PROVIDERS: ATTEND Surgery
DX: K60.3 Anal fistula (principal); K60.4 Rectal fistula; K52.89 Other specified noninfective gastroenteritis and colitis
CPT/HCPCS: 74177; Q9967

== ENCOUNTER → 2024-05-03 | Outpatient (CLI) | payer MEDICARE ==
[2024-05-03 19:18] LABS: BUN/Creat Ratio 24.82 Ratio (12.00-20.00); Blood Urea Nitrogen 27.3 mg/dL (9.0-27.0); Chloride 104 mmol/L (96-109); Glucose 105 mg/dL (70-110); Potassium 4.8 mmol/L (3.5-5.5); Sodium 141 mmol/L (135-145)
== END | disposition home or self-care (01) ==
LOC: LABWHC1 14:42
PROVIDERS: ATTEND Internal Medicine
DX: I10 Essential (primary) hypertension (principal); E87.8 Other disorders of electrolyte and fluid balance, not elsewhere classified
CPT/HCPCS: 36415; 80048

== ENCOUNTER → 2024-08-16 | Outpatient (CLI) | payer MEDICARE ==
[2024-08-16 18:42] LABS: BUN/Creat Ratio 25.33 Ratio (12.00-20.00); Blood Urea Nitrogen 22.8 mg/dL (9.0-27.0); Carbon Dioxide 24.4 mmol/L (21.6-31.8); Chloride 107 mmol/L (96-109); Glucose 105 mg/dL (70-110); Potassium 4.5 mmol/L (3.5-5.5); Sodium 143 mmol/L (135-145)
== END | disposition home or self-care (01) ==
LOC: LABWHC1 14:24
PROVIDERS: ATTEND Internal Medicine
DX: I10 Essential (primary) hypertension (principal); E11.65 Type 2 diabetes mellitus with hyperglycemia; M81.0 Age-related osteoporosis without current pathological fracture; N18.30 Chronic kidney disease, stage 3 unspecified; D64.9 Anemia, unspecified
CPT/HCPCS: 36415; 80048; 83036

== ENCOUNTER → 2024-11-01 | Outpatient (CLI) | payer MEDICARE ==
[2024-11-01 19:16] LABS: BUN/Creat Ratio 25.89 Ratio (12.00-20.00); Blood Urea Nitrogen 23.3 mg/dL (9.0-27.0); Carbon Dioxide 25.6 mmol/L (21.6-31.8); Chloride 103 mmol/L (96-109); Glucose 101 mg/dL (70-110); Sodium 141 mmol/L (135-145)
== END | disposition home or self-care (01) ==
LOC: LABWHC1 14:44
PROVIDERS: ATTEND Internal Medicine
DX: R60.0 Localized edema (principal)
CPT/HCPCS: 36415; 80048

== ENCOUNTER → 2025-02-09 | Outpatient (CLI) | payer MEDICARE ==
[2025-02-09 18:29] LABS: ALT 19 U/L (8-44); AST 23 U/L (13-35); Albumin 4.3 g/dL (3.8-4.9); Albumin/Globulin Ratio 1.95 Ratio (1.60-3.17); Alkaline Phosphatase 74 U/L (41-126); BUN/Creat Ratio 26.78 Ratio (12.00-20.00); Blood Urea Nitrogen 24.1 mg/dL (9.0-27.0); Calcium 9.8 mg/dL (8.7-10.3); Carbon Dioxide 22.5 mmol/L (21.6-31.8); Chloride 106 mmol/L (96-109); Globulin 2.2 g/dL (1.6-3.3); Glucose 110 mg/dL (70-110); Potassium 4.6 mmol/L (3.5-5.5); Rheumatoid Factor, Qnt <15 IU/mL (0-15); Sodium 142 mmol/L (135-145); Total Bilirubin 0.8 mg/dL (0.3-1.2); Total Protein 6.5 g/dL (6.2-8.2)
[2025-02-09 22:42] LABS: Anti-DNA, DS unit <1.0 IU/mL; DNA Double-Stranded Negative (Negative)
[2025-02-10 00:44] LABS: Cyclic Citrull Pep IgG Unit <1.5 U/mL (<=3.9); Cyclic Citrullinated Pep IgG Negative
[2025-02-12 13:17] LABS: Smooth Muscle Antibody 3 UNITS (<20)
[2025-02-12 14:50] LABS: C-ANCA <1:20 Titer (<1:20)
== END | disposition home or self-care (01) ==
LOC: LABWHC1 13:20
PROVIDERS: ATTEND Internal Medicine
DX: M81.0 Age-related osteoporosis without current pathological fracture (principal); M06.4 Inflammatory polyarthropathy; D89.9 Disorder involving the immune mechanism, unspecified
CPT/HCPCS: 36415; 80053; 83036; 83516; 85652; 86038; 86140; 86200; 86225; 86255; 86431